=== PATIENT | male | born 1955 | race Caucasian/White ===

== ENCOUNTER 2016-04-23 22:00 | Inpatient (IN) | payer OTHER ==
[~2016-04-23] VITALS: Ht 189.2 cm; Wt 149.7 kg
[~2016-04-23 22:00] MED LIST: ALL300 PO; CYCL10TA6 PO; DIPH-437 PO; LCTX PO; LSX20 PO; METO50TA16 PO; OMEP20CA9 PO; PHEN10CA3 PO; SULF800T23 PO
[2016-04-23] MEDS ORDERED: MoRPHine SULFATE 4 MG/ML 1 ML CARP\\VIAL IV STA (22:16)
[2016-04-23 22:27] LABS: BASO % 0.5 %; BASO ABS # 0.05 K/uL (0-0.2); COMPLETE YES; EOS % 1.9 %; HEMATOCRIT 43.4 % (42-52); IG% 1.4 %; LYMPH % 17.9 %; LYMPH ABS # 1.79 K/uL (1.2-3.4); MEAN CELL VOLUME 94.3 fL (80-100); MEAN CORPUSCULAR HEMOGLOBIN 31.3 pg (25-34); MEAN CORPUSCULAR HGB CONC 33.2 g/dl (32-36); MEAN PLATELET VOLUME 10.6 fL (7.4-10.4); MONO % 7.8 %; NEUT % 70.5 %; PLATELET COUNT 205 K/uL (130-400)
[2016-04-23] MEDS ORDERED: ALLO300T2 PO (22:29)
[2016-04-23] MEDS ORDERED: NITROGLYCERIN OINT 2% 1GM PACKET EXT ONE (22:30)
[2016-04-23] MEDS ORDERED: NTRGSL/4 PO (22:32)
[2016-04-23] MEDS ORDERED: TEMA15CA4 PO (22:33)
[2016-04-23] MEDS ORDERED: DICL-201 PO (22:33)
--- NOTE | 2016-04-23 22:44 | DIAGNOSTIC IMAGING REPORT ---
CHEST ONE VIEW PORTABLE CLINICAL HISTORY: Chest pain dyspnea COMPARISON STUDY: 02/23/2016 FINDINGS: Platelike atelectasis right base. Lungs otherwise are clear. Diaphragms smooth. IMPRESSION: No acute process Electronically signed by: Alvaro Rodrigues M.D. 04/23/2016 10:42 PM
[2016-04-23 23:06] LABS: ALB/GLOB RATIO 1.1 (0.9-2); BUN/CREATININE RATIO 23.3 (10-20); CALCIUM 8.4 mg/dl (8.5-10.1); CREATININE 1.5 mg/dl (0.60-1.40)
[2016-04-23 23:11] LABS: POTASSIUM 3.5 mmol/L (3.5-5.1)
[2016-04-23 23:19] LABS: CKMB/CK RATIO 2.4 (0-3.0); MAGNESIUM 2.3 mg/dl (1.8-2.4)
[2016-04-24] VITALS (7 sets, daily range): BP systolic 117–151; BP diastolic 72–87; PULSE 69–94; TEMP 36.5–36.6; O2SAT 95–96; Ht 189.2 cm; Wt 149.7 kg
--- NOTE | 2016-04-24 01:12 | EMERGENCY ROOM VISIT NOTE ---
History First contact with patient: 22:07 Chief Complaint: CHEST PAIN Stated Complaint: CHEST PAIN Nursing Triage Summary: Patient reports a sudden onset of substernal left sided chest pain radiating to b/l arms, started at 2014. Patient reports associated SOB, diaphoresis and radiation to b/l arms. patient has a history of intermittent chest pain. He was evaluated this date by behavioral health counselor. Known to have RBBB. Negative vomiting. History of Present Illness The patient is a 61 year old male who presents to the Emergency Room with complaints of left-sided chest pain that began about 2 hours prior to arrival. The patient has a history of cardiac disease and has previously followed with cardiology. He is a poor historian regarding his past cardiology visits. He evidently had an echocardiogram done 4 months ago. The patient is in the process of reestablishing with the cardiology group in [place]. He had his first visit with that group today, and this is the first time he got results of that previous echocardiogram. Evidently the behavioral health counselor did not feel comfortable with the results, and he has had additional echo and stress echo test ordered. The patient states that after his cardiology appointment he felt well, but then began having his pain. He states there was associated shortness of breath and radiation to his arms laterally. The patient is without fever or chills. No abdominal pain. He took aspirin today, and 2 nitroglycerin at home which relieved the pain. He states the pain is heavy in nature. Review of Systems More than 10 systems were reviewed and otherwise negative with the exception of history of present illness. Past Medical/Surgical History Medical Problems: (1) GERD (gastroesophageal reflux disease) (2) HTN (hypertension) (3) Laceration of lower extremity (4) Osteoarthritis (5) Sleep apnea Surgical Problems: (1) Bariatric Surgery Status (2) History of cholecystectomy (3) History of hernia repair Family History No pertinent family history Social History Smoking Status: Never Smoker Alcohol Use: none Drug Use: none Marital Status: Housing Status: lives with family Occupation Status: disabled Current/Historical Medications Scheduled Allopurinol (Zyloprim), 300 MG PO DAILY Diclofenac (Voltaren), 75 MG PO BID Furosemide (Furosemide), 20 MG PO DAILY Metoprolol Tartrate (Lopressor) (Lopressor), 25 MG PO QAM Nitroglycerin (Nitrostat), 0.4 MG PO DIRECTED Omeprazole (Prilosec), 20 MG PO DAILY Phentermine Hcl (Adipex P), 1 CAP PO QAM Sulfa/Trimethoprim (Bactrim Ds 800MG/160MG), 1 TAB PO BID Temazepam (Restoril), 15 MG PO HS Scheduled PRN Acetaminophen/Diphenhydramine (Tylenol Pm), 2 TAB PO HS PRN for Sleep Cyclobenzaprine Hcl (Flexeril), 1 TAB PO TID PRN for leg cramps Allergies Coded Allergies: Cephalexin (Unverified Adverse Reaction, Mild, "JUST DOESNT WORK" PER PT, 02/27/16) Physical Exam Vital Signs Date Time Temp Pulse Resp B/P Pulse Ox O2 Delivery O2 Flow Rate FiO2 04/24/16 00:34 91 23 132/78 94 Room Air 04/23/16 23:08 78 19 124/86 94 Room Air 04/23/16 22:27 88 04/23/16 22:07 95 Room Air 04/23/16 22:07 36.7 88 18 132/82 95 Room Air 04/23/16 22:07 98 Room Air Physical Exam VITALS: Vitals are noted on the nurse's note and reviewed by myself. Vital signs stable. GENERAL: Well-developed, well-nourished, obese white male, who is in no acute distress and resting comfortably. Patient is cooperative with the examination. HEAD: Normocephalic atraumatic. HEART: Regular rate and rhythm without murmurs gallops or rubs. LUNGS: Clear to auscultation bilaterally without wheezes, rales or rhonchi. No retractions or accessory muscle use. ABDOMEN: Positive normal bowel sounds x 4. Soft, nontender, without masses or organomegaly. No guarding or rebound tenderness. MUSCULOSKELETAL: No muscle atrophy, erythema, or edema noted. Full range of motion without joint tenderness in all extremities. NEURO: Patient was alert and oriented to person place and time. CN II through XII grossly intact. Medical Decision & Procedures ER Provider Diagnostic Interpretation: CHEST ONE VIEW PORTABLE CLINICAL HISTORY: Chest pain dyspnea COMPARISON STUDY: 02/23/2016 FINDINGS: Platelike atelectasis right base. Lungs otherwise are clear. Diaphragms smooth. IMPRESSION: No acute process Laboratory Results 04/23/16 22:00 Red Blood Count 4.60, Mean Corpuscular Volume 94.3, Mean Corpuscular Hemoglobin 31.3, Mean Corpuscular Hemoglobin Concent 33.2, Mean Platelet Volume 10.6, Neutrophils (%) (Auto) 70.5, Lymphocytes (%) (Auto) 17.9, Monocytes (%) (Auto) 7.8, Eosinophils (%) (Auto) 1.9, Basophils (%) (Auto) 0.5, Neutrophils # (Auto) 7.05, Lymphocytes # (Auto) 1.79, Monocytes # (Auto) 0.78, Eosinophils # (Auto) 0.19, Basophils # (Auto) 0.05 04/23/16 22:00 Test 04/23/16 22:00 White Blood Count 10.00 K/uL (4.8-10.8) Red Blood Count 4.60 M/uL (4.7-6.1) Hemoglobin 14.4 g/dL (14.0-18.0) Hematocrit 43.4 % (42-52) Mean Corpuscular Volume 94.3 fL (80-100) Mean Corpuscular Hemoglobin 31.3 pg (25-34) Mean Corpuscular Hemoglobin Concent 33.2 g/dl (32-36) Platelet Count 205 K/uL (130-400) Mean Platelet Volume 10.6 fL (7.4-10.4) Neutrophils (%) (Auto) 70.5 % Lymphocytes (%) (Auto) 17.9 % Monocytes (%) (Auto) 7.8 % Eosinophils (%) (Auto) 1.9 % Basophils (%) (Auto) 0.5 % Neutrophils # (Auto) 7.05 K/uL (1.4-6.5) Lymphocytes # (Auto) 1.79 K/uL (1.2-3.4) Monocytes # (Auto) 0.78 K/uL (0.11-0.59) Eosinophils # (Auto) 0.19 K/uL (0-0.5) Basophils # (Auto) 0.05 K/uL (0-0.2) RDW Standard Deviation 52.9 fL (36.4-46.3) RDW Coefficient of Variation 15.4 % (11.5-14.5) Immature Granulocyte % (Auto) 1.4 % Immature Granulocyte # (Auto) 0.14 K/uL (0.00-0.02) Anion Gap 15.0 mmol/L (3-11) Est Creatinine Clear Calc Drug Dose 83.8 ml/min Estimated GFR () 58.2 Estimated GFR (Non- 50.2 BUN/Creatinine Ratio 23.3 (10-20) Calcium Level 8.4 mg/dl (8.5-10.1) Magnesium Level 2.3 mg/dl (1.8-2.4) Total Bilirubin 0.3 mg/dl (0.2-1) Aspartate Amino Transf (AST/SGOT) 17 U/L (15-37) Alanine Aminotransferase (ALT/SGPT) 35 U/L (12-78) Alkaline Phosphatase 106 U/L (45-117) Total Creatine Kinase 71 U/L (39-308) Creatine Kinase MB 1.7 ng/ml (0.5-3.6) Creatine Kinase MB Ratio 2.4 (0-3.0) Total Protein 6.5 gm/dl (6.4-8.2) Albumin 3.4 gm/dl (3.4-5.0) Globulin 3.1 gm/dl (2.5-4.0) Albumin/Globulin Ratio 1.1 (0.9-2) Lipase 107 U/L (73-393) Medications Administered Medications (Trade) Dose Ordered Sig/Darrius Route Start Time Stop Time Status Last Admin Dose Admin Nitroglycerin (Nitroglycerin 2% Oint) 1 inch NOW ONCE EXT 04/23/16 22:30 04/23/16 22:31 DC 04/23/16 22:36 1 INCH Morphine Sulfate (MoRPHine SULFATE INJ) 4 mg NOW STAT IV 04/23/16 22:16 04/23/16 22:18 DC 04/23/16 22:36 4 MG ED Course Physical exam and history were performed. Nursing notes and EMR were reviewed. Patient appears to have substernal chest pain that is relieved with nitroglycerin. The patient evidently has a cardiac history as he has seen cardiology in the past. He is not seeing cardiology locally, and I do not have those records available for review. The patient evidently saw a new behavioral health counselor today, and they have reordered an echo and stress echo according to the patient. IV access was established and labs were obtained. EKG was performed and was normal sinus rhythm with a right bundle-branch block. There is no evidence of ischemia or ectopy. IV access was established and labs were obtained. The patient was hydrated with normal saline. He was started with 1 inch Nitropaste and give IV Morphine. He has had aspirin prehospital. The patient work is as above and was reviewed. It is not significantly elevated white blood cell count, anemia, bandemia, or gross electrolyte imbalance. Troponin 1 is negative. The patient remained in normal sinus rhythm on the director cardiac. His x-rays as above. The patient had significant improvement of his symptoms under our care. My concern is that the patient was seen by cardiology and Giana Suárez earlier today , and they were unhappy with his echocardiogram from 4 months ago. He has chest pain that is relieved with nitroglycerin. I discussed the case with the on-call hospitalist, who agreed to evaluate the patient here in the department the care management. Please see their dictation for patient course, plan, and disposition. The chart was completed utilizing [employer] Voice Recognition Software. Grammatical errors, random word insertions, pronoun errors, and incomplete sentences are an occasional consequence of this system due to software limitations, ambient noise, and hardware issues. Any formal questions or concerns about the content, text, or information contained within the body of this dictation should be directly addressed to the provider for clarification. . Medical Decision Differential diagnosis includes, but is not limited to: Myocardial infarction, dysrhythmia, pericarditis, pneumothorax, aortic aneurysm/dissection, DVT/PE, anxiety, GERD, PUD, electrolyte imbalance, thyroid disorder, pneumonia, bronchitis, pancreatitis, and others Impression Primary Impression: Substernal chest pain Departure Information Referrals Pita Montes M.D. (PCP) Patient Instructions A Signature Page, My [facility]
[2016-04-24] MEDS ORDERED: ACETAMINOPHEN 325 MG TAB ONE (02:12)
[2016-04-24] MEDS ORDERED: NITROGLYCERIN 0.4 MG SL PER TAB CHARGE SL PRN (02:15)
[2016-04-24] MEDS ORDERED: CYCLOBENZAPRINE HCL 10 MG TAB PO PRN (02:15)
[2016-04-24] MEDS ORDERED: ACETAMINOPHEN 325 MG TAB PO PRN (02:15)
[2016-04-24] MEDS ORDERED: POLYETHYLENE (MIRALAX) 17 GM PACK PO PRN (02:15)
[2016-04-24] MEDS ORDERED: MAGNESIUM HYDROXIDE SUSP 30 ML UDC PO PRN (02:15)
[2016-04-24] MEDS ORDERED: MoRPHine SULFATE 2 MG/ML CARP IV PRN (02:15)
[2016-04-24] MEDS ORDERED: ONDANSETRON INJ 2 MG/ML 2 ML VIAL IV PRN (02:15)
[2016-04-24] MEDS ORDERED: ALUMINUM/MAGNESIUM/SIMETH (MAALOX MAX) 30 ML UDC PO PRN (02:15)
--- NOTE | 2016-04-24 02:56 | History and Physical ---
History & Physical Date & Time of Service: Apr 24, 2016 at 02:28 Chief Complaint: Acute Renal Failure,Substernal Chest Pain Primary Care Physician: Pita Montes M.D. History of Present Illness Source: patient 61 y/o M w/Hx recurrent RLE cellulitis and recent prolonged hospitalization, HTN, morbid obesity and recent workup for intermittent CP. He had an appt earlier in the day with a new insulation worker apprentice due to a stress test 01/05 which was either equivocal or (+). He is apparently scheduled for an additional stress. This evening he developed central CP which radiated to his arms and was accompanied by SOB and diaphoresis in addition to a rapid, pounding HR. He reports that he had called EMS and was tachycardic when they arrived although not on arrival to the ER. His CP lasted several minutes and responded to NTG. Initial labs revealed negative enzymes but were (+) for ARF. The pt has been on Bactrim for an extended period following D/C after cellulitis treatment although he states that he has decided to take the medication once daily as opposed to BID as prescribed. He is on Lasix and Allopurinol daily although these are not new medications and the dosages have not changed. He denies recent NSAID use. He has been eating and drinking normally. Past Medical/Surgical History Medical Problems: (1) GERD (gastroesophageal reflux disease) Status: Chronic (2) HTN (hypertension) Status: Chronic (3) Laceration of lower extremity Status: Resolved (4) Osteoarthritis Status: Chronic (5) Sleep apnea Status: Chronic Surgical Problems: (1) Bariatric Surgery Status Status: Resolved (2) History of cholecystectomy Status: Resolved (3) History of hernia repair Status: Resolved Family History No pertinent family history Father from heart disease/ND Mother due to CA - unspecified Social History Smoking Status: Never Smoker Drug Use: none Marital Status: Housing status: lives with significant other Occupational Status: disabled Allergies Coded Allergies: Cephalexin (Unverified Adverse Reaction, Mild, "JUST DOESNT WORK" PER PT, 02/27/16) Home Medications Scheduled Allopurinol (Zyloprim), 300 MG PO DAILY Diclofenac (Voltaren), 75 MG PO BID Furosemide (Furosemide), 20 MG PO DAILY Metoprolol Tartrate (Lopressor) (Lopressor), 25 MG PO QAM Nitroglycerin (Nitrostat), 0.4 MG PO DIRECTED Omeprazole (Prilosec), 20 MG PO DAILY Phentermine Hcl (Adipex P), 1 CAP PO QAM Sulfa/Trimethoprim (Bactrim Ds 800MG/160MG), 1 TAB PO BID Temazepam (Restoril), 15 MG PO HS Scheduled PRN Acetaminophen/Diphenhydramine (Tylenol Pm), 2 TAB PO HS PRN for Sleep Cyclobenzaprine Hcl (Flexeril), 1 TAB PO TID PRN for leg cramps Review of Systems Constitutional: No chills, No fever, No sweats Eyes: No worsening of vision ENT: No hearing loss, No nasal symptoms, No unusual epistaxis Respiratory: + shortness of breath (transient with CP), No cough, No sputum, No wheezing Cardiovascular: + chest pain, No PND, No orthopnea Abdomen: No nausea, No pain, No vomiting Musculoskeletal: + problem reported (Chronic LE pain and swelling - R>L), No joint pain Genitourinary - Male: No dysuria, No hematuria Neurologic: No memory loss Psychiatric: No depression symptoms Endocrine: No fatigue Hematologic / Lymphatic: No abnormal bleeding/bruising Integumentary: No rash Allergic / Immunologic: No environmental allergies Physical Exam Vital Signs Date Time Temp Pulse Resp B/P Pulse Ox O2 Delivery O2 Flow Rate FiO2 04/24/16 02:10 84 16 117/71 94 Room Air 04/24/16 02:06 77 04/24/16 00:34 91 23 132/78 94 Room Air 04/23/16 23:08 78 19 124/86 94 Room Air 04/23/16 22:27 88 04/23/16 22:07 95 Room Air 04/23/16 22:07 36.7 88 18 132/82 95 Room Air 04/23/16 22:07 98 Room Air General Appearance: WD/WN, no apparent distress Head: normocephalic, atraumatic Eyes: normal inspection ENT: normal ENT inspection, pharynx normal Neck: supple, no JVD Respiratory/Chest: chest non-tender, lungs clear, normal breath sounds, no respiratory distress, no accessory muscle use Cardiovascular: regular rate, rhythm, no gallop, no murmur Abdomen/GI: normal bowel sounds, non tender, soft Back: normal inspection Extremities/Musculoskelatal: + inflammation (RLE - chronic), + pedal edema Neurologic/Psych: digital strategy specialist II-XII nml as tested, no motor/sensory deficits, alert, normal mood/affect, normal reflexes, oriented x 3 Skin: + rash (RLE appears erythematous - not warm ) Diagnostics Laboratory Results Results Past 24 Hours Test 04/23/16 22:00 04/24/16 01:30 04/24/16 02:10 04/24/16 02:25 Range/Units White Blood Count 10.00 4.8-10.8 K/uL Red Blood Count 4.60 4.7-6.1 M/uL Hemoglobin 14.4 14.0-18.0 g/dL Hematocrit 43.4 42-52 % Mean Corpuscular Volume 94.3 80-100 fL Mean Corpuscular Hemoglobin 31.3 25-34 pg Mean Corpuscular Hemoglobin Concent 33.2 32-36 g/dl Platelet Count 205 130-400 K/uL Mean Platelet Volume 10.6 7.4-10.4 fL Neutrophils (%) (Auto) 70.5 % Lymphocytes (%) (Auto) 17.9 % Monocytes (%) (Auto) 7.8 % Eosinophils (%) (Auto) 1.9 % Basophils (%) (Auto) 0.5 % Neutrophils # (Auto) 7.05 1.4-6.5 K/uL Lymphocytes # (Auto) 1.79 1.2-3.4 K/uL Monocytes # (Auto) 0.78 0.11-0.59 K/uL Eosinophils # (Auto) 0.19 0-0.5 K/uL Basophils # (Auto) 0.05 0-0.2 K/uL RDW Standard Deviation 52.9 36.4-46.3 fL RDW Coefficient of Variation 15.4 11.5-14.5 % Immature Granulocyte % (Auto) 1.4 % Immature Granulocyte # (Auto) 0.14 0.00-0.02 K/uL Sodium Level 147 136-145 mmol/L Potassium Level 3.5 3.5-5.1 mmol/L Chloride Level 112 98-107 mmol/L Carbon Dioxide Level 20 21-32 mmol/L Anion Gap 15.0 3-11 mmol/L Blood Urea Nitrogen 35 7-18 mg/dl Creatinine 1.50 0.60-1.40 mg/dl Est Creatinine Clear Calc Drug Dose 83.8 ml/min Estimated GFR () 58.2 Estimated GFR (Non- 50.2 BUN/Creatinine Ratio 23.3 10-20 Random Glucose 86 70-99 mg/dl Calcium Level 8.4 8.5-10.1 mg/dl Magnesium Level 2.3 1.8-2.4 mg/dl Total Bilirubin 0.3 0.2-1 mg/dl Aspartate Amino Transf (AST/SGOT) 17 15-37 U/L Alanine Aminotransferase (ALT/SGPT) 35 12-78 U/L Alkaline Phosphatase 106 45-117 U/L Total Creatine Kinase 71 39-308 U/L Creatine Kinase MB 1.7 0.5-3.6 ng/ml Creatine Kinase MB Ratio 2.4 0-3.0 Total Protein 6.5 6.4-8.2 gm/dl Albumin 3.4 3.4-5.0 gm/dl Globulin 3.1 2.5-4.0 gm/dl Albumin/Globulin Ratio 1.1 0.9-2 Lipase 107 73-393 U/L Bedside Troponin I 0.010 0-0.045 ng/ml EKG Sinus , RBBB Impression Assessment and Plan 61 y/o M w/Hx chronic RLE cellulitis and recent prolonged hospitalization. Had visited a insulation worker apprentice earlier in day possibly due to intermittent CP and an abnormal stress 01/05 - presents with CP and labs are notable for ARF. 1) CP - We are not currently able to contact his insulation worker apprentice who resides in [facility] and should likely be contacted AM to clarify his history and stress results. He will be monitored on telemetry with serial troponins and provided with NTG or morphine PRN for pain. We will provide ASA, and administer low dose heparin. It is noted that his home med list includes NTG as needed but not a statin, ASA or B noa so again, clarification of his history and previous workup would be essential. He is at risk of DVT/PE. Currently his pretest probability is low so that we will order a D dimer and proceed to a LE US if positive. 2) ARF - Med list includes Lasix, Diclofenac, Allopurinol and Bactrim. He denies recent Diclofenac use. We will hold all of these and provide aggressive IV fluids overnight in addition to checking a urine NA and Creat for a fractional excretion calculation. If there is no improvement we may need a nephrology consult. 3) Cellulitis - chronic RLE - pt is on Bactrim apparently as prophylaxis but has not complied with a full dose. We have held bactrim due to his ARF however his cellulitis does not appear completely healed so that if we need to D/C Bacr= trim going forward and ID consult should be obtained for evaluation and potential substitution. 4) HTN - normotensive at present - Lasix held due to ARF - monitor on telemetry Full code - Heparin prophylaxis Total time for this admit including record review, MEd rec, discussion with ER attending and Pt, review of EKG 37 min Level of Care Telemetry Resuscitation Status FULL RESUSCITATION VTE Prophylaxis VTE Risk Assessment Done? Y/N: Yes Risk Level: Moderate Given or contraindicated: Unfractionated heparin SQ
--- NOTE | 2016-04-24 07:50 | DIAGNOSTIC IMAGING REPORT ---
BILATERAL LOWER EXTREMITY VENOUS DOPPLER CLINICAL HISTORY: Deep venous thrombus. Elevated d-dimer. COMPARISON STUDY: Right lower extremity venous Doppler February 25, 2016. TECHNIQUE: Sonography of the deep venous system of the bilateral lower extremities was performed. Compression and augmentation were evaluated. FINDINGS: The bilateral common femoral, superficial femoral and popliteal veins were compressible. Augmentation was normal. Flow was shown within the deep calf vessels. Note was made of thrombus within a superficial vein of the medial and posterior aspect of the right calf. IMPRESSION: 1. No evidence of deep venous thrombus within the bilateral lower extremities. 2. Superficial thrombus within the medial and posterior right calf, as described above. Electronically signed by: Dakota Brito M.D. 04/24/2016 7:48 AM
[2016-04-24] MEDS: D5NSS + 20MEQ KCL 1,000 ML IV SCH ×2 (08:09→14:58)
[2016-04-24] MEDS: HEPARIN SOD 5000 UNIT/0.5 ML CARP SQ SCH ×2 (08:12→16:22)
--- NOTE | 2016-04-24 08:14 | Family Medicine Progress Note ---
Progress Note Date of Service Apr 24, 2016. Subjective Pt evaluation today including: conversation w/ patient, physical exam, chart review, lab review The patient was seen and examined at bedside. No acute overnight events. Patient is resting comfortably in bed. Denies having any pain. Eating and urinating well. Patient denies chest pain. Crushing chest pain from yesterday had resolved. Pt reported that he saw a lining presser in [place], Lelo Pagan (sp?) [phone] yesterday and she had planned to do a cardiac work up. Pt does not want to see a new lining presser if he can help it. Pt reports that his RLE is not bothering him. Plan of care was described to the patient and all questions were answered. Constitutional: No chills, No fever, No sweats Respiratory: No cough, No shortness of breath, No sputum, No wheezing Abdomen: No diarrhea, No nausea, No pain, No vomiting Objective Physical Exam General Appearance: WD/WN, no apparent distress, + obese Neck: no JVD Respiratory/Chest: chest non-tender, lungs clear, normal breath sounds Cardiovascular: regular rate, rhythm, no edema, no gallop, no JVD, no murmur Abdomen: normal bowel sounds, soft, no pulsatile mass, + distended Extremities: normal range of motion, no calf tenderness, + pedal edema (trace pedal edema bilaterally.), + pertinent finding (bilateral skin discoloration, equal temps bilaterally of the LE, no visible erythema.) Neurologic/Psychiatric: no motor/sensory deficits, alert, normal mood/affect, oriented x 3 Assessment and Plan 61M w/Hx chronic RLE cellulitis presented with a chief complaint one day history of midsternal pressure-like chest pain at rest. Pt had just seen his lining presser (INVESTIGATION CLERK Lelo Agustin sp?) in [place] the previous day. Labs are also notable for ARF. Pt was admitted for ARF and chest pain rule out. Troponins were negative x 2, EKG showed RBBB which is unchanged from EKG obtained at cardiologists office the previous day. Chart search from PCP, Dr. Montes at [facility] revealed an echo from Dec 2015 (results below), normal nuclear stress test from 2014, and EKG from Apr 23, 2016 showed RBBB. Chest Pain of unknown origin - Chest pain symptoms have resolved. Telemetry showed sinus rhythm. - Per pt's cardiology team in [place] (spoke with INVESTIGATION CLERK Lelo Agustin), an outpatient ALLY and echocardiogram is scheduled. - Echo from Dec 2015 showed - LVEF of 70%, hyperdynamic, mildly dilated right ventricular cavity, hyperdynamic RV systolic function, the aortic root is mildly enlarged and no significant valvular abnormalities - Nuclear stress test in 2014 showed normal perfusion imaging. - EKG from previous day lining presser visit (Apr 23, 2016) showed RBBB. - Trops neg x 2. Elevated D-Dimer, V/Q scan was negative. - c/w ASA 81mg, metoprolol 25mg daily, pantoprazole 40mg daily, Superficial Thrombus in R Calf found in US (superficial thrombus in the greater and lesser saphenous veins of the right medial and posterior mid calf.) - Pt denies any pain in the RLE, non tender LE to palpation bilaterally. - No anticoagulation for now. Acute Renal Failure - Creatinine improving 1.3<--1.5 - At patient's request IV was stopped, pt was encouraged to increase his PO water intake. - Hold Lasix, Diclofenac, Allopurinol and Bactrim. - Repeat BMP for tomorrow. Cellulitis - Pt denies any complains in the RLE, appears grossly normal with vascular discoloration. - OK to keep holding Bactrim. Likely resume Bactrim on discharge. HTN - Lasix held due to ARF - continue to monitor VS Dispo DVT Proph: HepSQ Full Code Resident Physician Supervision Note: I was present with the resident physician during the history and exam. I discussed the case with the resident and agree with the findings and plan as documented in the note. Any exceptions or clarifications are listed here: 61 y/o male admitted overnight after a now-resolved episode of chest pain. The patient had seen a lining presser the same day as an out-patient (at a different hospital). I reviewed the findings of tests performed here with the patient,; EKG is unchanged and cardiac enzymes are negative. I offered the patient consultation with an in-house lining presser, although he would prefer to follow up with the lining presser in [place] whom he saw yesterday. We were able to reach out to both the patient's PCP and cardiology office to obtain most recent echocardiogram. Given patient's negative enzymes and unchanged EKG - combined with his confirmed follow up with cardiology, discharge and continued out patient work up is a reasonable approach. Signs and symptoms of ACS were reviewed with the patient, with instructions to return to the ED (or call 911) if symptoms arise. Documented By: Kwan Villanueva Resident Involvement: Resident Care Provided Care Provided: Adult [facility]
[2016-04-24] MEDS ORDERED: ASPIRIN 81 MG ECTAB PO SCH (09:00)
[2016-04-24] MEDS ORDERED: METOPROLOL TARTRATE 25 MG TAB PO SCH (09:00)
[2016-04-24] MEDS ORDERED: PANTOprazole SOD 40 MG TAB PO SCH (09:00)
[2016-04-24 09:05] LABS: CALCIUM 8.2 mg/dl (8.5-10.1); CREATININE 1.3 mg/dl (0.60-1.40); POTASSIUM 4.1 mmol/L (3.5-5.1)
--- NOTE | 2016-04-24 12:55 | DIAGNOSTIC IMAGING REPORT ---
NUCLEAR MEDICINE PULMONARY VENTILATION/PERFUSION SCAN CLINICAL HISTORY: Shortness of breath. Possible pulmonary embolism. COMPARISON STUDY: Chest x-ray dated 04/23/2016 FINDINGS: The patient was ventilated utilizing 33 mCi of technetium 99m DTPA aerosol. The patient was perfused utilizing 5.6 mCi of technetium 99m MAA. There is slight heterogeneity in the perfusion pattern. There are no moderate or large VQ mismatches. This examination is of low probability for pulmonary embolism. IMPRESSION: Low probability of pulmonary embolism Electronically signed by: Ray Olmedo M.D. 04/24/2016 12:53 PM
--- NOTE | 2016-04-24 17:51 | Discharge Instructions ---
Discharge Instructions Admission Reason for Admission: Acute Renal Failure,Substernal Chest Pain Discharge Discharge Diagnosis / Problem: Acute renal failure and chest pain of unknown origin Discharge Goals Goal(s): Decrease discomfort, Improve function, Increase independence Activity Recommendations Activity Limitations: resume your previous activity . Instructions / Follow-Up Instructions / Follow-Up Follow up with your senior medical technologist within the next week to make sure you have your ALLY scan and echocardiogram scheduled. Follow up with your Primary Care Provider as needed. Return to the ER if you experience crushing chest pain. Current Hospital Diet Patient's current hospital diet: AHA Diet (Heart Healthy) Discharge Diet Recommended Diet: Regular Diet Pending Studies Studies pending at discharge: no Medical Emergencies . Who to Call and When: Medical Emergencies: If at any time you feel your situation is an emergency, please call 911 immediately. . Non-Emergent Contact Non-Emergency issues call your: Primary Care Provider, Product Inspection Coordinator . . "Provider Documentation" section prepared by Alvaro Peguero. VTE Core Measure Inpt VTE Proph given/why not?: Unfractionated heparin SQ Resident Involvement: Resident Care Provided Care Provided: Adult Hospital Medicine
--- NOTE | 2016-04-24 17:53 | Discharge Summary ---
Discharge Summary Admission Date: Apr 24, 2016 at 02:09 Discharge Date: Apr 24, 2016 Discharge Disposition: Home Principal Diagnosis: Acute Renal failure and chest pain of unknown origin. Problems/Secondary Diagnoses: (1) GERD (gastroesophageal reflux disease) Status: Chronic (2) HTN (hypertension) Status: Chronic (3) Osteoarthritis Status: Chronic (4) Sleep apnea Status: Chronic (Alvaro Peguero M.D.) Medication Reconciliation Continued Medications: Acetaminophen/Diphenhydramine (Tylenol Pm) 500 Mg/25 Mg Tab 2 TAB PO HS PRN for Sleep, TAB Allopurinol (Zyloprim) 300 Mg Tab 300 MG PO DAILY, TAB Cyclobenzaprine Hcl (Flexeril) 10 Mg Tab 1 TAB PO TID PRN for leg cramps for 30 Days, #90 TAB Diclofenac (Voltaren) 75 Mg Tabcr 75 MG PO BID, TAB WITH FOOD Furosemide (Furosemide) 20 Mg Tab 20 MG PO DAILY, #90 Metoprolol Tartrate (Lopressor) (Lopressor) 50 Mg Tab 25 MG PO QAM, #180 Nitroglycerin (Nitrostat) 0.4 Mg Tab 0.4 MG PO DIRECTED, #25 Omeprazole (Prilosec) 20 Mg Cap 20 MG PO DAILY, #90 Phentermine Hcl (Adipex P) 37.5 Mg Cap 1 CAP PO QAM for 30 Days, #30 CAP 2 Refills Sulfa/Trimethoprim (Bactrim Ds 800MG/160MG) Tab 1 TAB PO BID, #20 TAB Temazepam (Restoril) 15 Mg Cap 15 MG PO HS, CAP Discharge Exam Pt evaluation today including: conversation w/ patient, physical exam, chart review, lab review The patient was seen and examined at bedside. No acute overnight events. Patient is resting comfortably in bed. Denies having any pain. Eating and urinating well. Patient denies chest pain. Crushing chest pain from yesterday had resolved. Pt reported that he saw a guest experience captain in [place] (sp[place] [phone] yesterday and she had planned to do a cardiac work up. Pt does not want to see a new guest experience captain if he can help it. Pt reports that his RLE is not bothering him. Plan of care was described to the patient and all questions were answered. Constitutional: No chills, No fever, No sweats Respiratory: No cough, No shortness of breath, No sputum, No wheezing Abdomen: No diarrhea, No nausea, No pain, No vomiting Physical Exam General Appearance: WD/WN, no apparent distress, + obese Neck: no JVD Respiratory/Chest: chest non-tender, lungs clear, normal breath sounds Cardiovascular: regular rate, rhythm, no edema, no gallop, no JVD, no murmur Abdomen: normal bowel sounds, soft, no pulsatile mass, + distended Extremities: normal range of motion, no calf tenderness, + pedal edema (trace pedal edema bilaterally.), + pertinent finding (bilateral skin discoloration, equal temps bilaterally of the LE, no visible erythema.) Neurologic/Psychiatric: no motor/sensory deficits, alert, normal mood/affect, oriented x 3 (Alvaro Peguero M.D.) Hospital Course 61M w/Hx chronic RLE cellulitis presented with a chief complaint of a one day history of midsternal pressure-like chest pain at rest. Pt had just seen his guest experience captain (ELIJAH shook?) in [place] the previous day. Labs are also notable for ARF. Pt was admitted for ARF and chest pain rule out. Troponins were negative x 2, EKG showed RBBB which is unchanged from EKG obtained at cardiologists office the previous day. Chart search from PCP, Dr. Montes at [facility] revealed an echo from Dec 2015 (results below), normal nuclear stress test from 2014, and EKG from Apr 23, 2016 showed RBBB. After speaking with the pt's cardiology team, the patient was a workup of a ALLY and an echocardiogram schedule. Pt was advised to follow up with his guest experience captain to make sure those appointments get scheduled. Pt was given specific return to the ER instructions (severe chest pain or dyspnea on exertion) and discharged in good condition. Total Time Spent: Greater than 30 minutes This includes examination of the patient, discharge planning, medication reconciliation, and communication with other providers. (Alvaro Peguero M.D.) Resident Physician Supervision Note: I was present with the resident physician during the history and exam. I discussed the case with the resident and agree with the findings and plan as documented in the note. Any exceptions or clarifications are listed here: Please see additional documentation in the daily progress note. 61 y/o male admitted overnight after a now-resolved episode of chest pain. The patient had seen a guest experience captain the same day as an out-patient (at a different hospital). I reviewed the findings of tests performed here with the patient,; EKG is unchanged and cardiac enzymes are negative. I offered the patient consultation with an in-house guest experience captain, although he would prefer to follow up with the guest experience captain in [place] whom he saw yesterday. We were able to reach out to both the patient's PCP and cardiology office to obtain most recent echocardiogram. Given patient's negative enzymes and unchanged EKG - combined with his confirmed follow up with cardiology, discharge and continued out patient work up is a reasonable approach. Signs and symptoms of ACS were reviewed with the patient, with instructions to return to the ED (or call 911) if symptoms arise. (Kwan Villanueva,D.O.) Discharge Instructions Please refer to the electronic Patient Visit Report (Discharge Instructions) for additional information. (Alvaro Peguero M.D.) Follow-Up Follow up with the cardiology office within one week. Follow up with PCP as needed. (Alvaro Peguero M.D.) Additional Copies To Pita Montes M.D. Resident Involvement: Resident Care Provided Care Provided: Adult [facility] Medicine (Alvaro Peguero M.D.)
[2016-04-24] MEDS ORDERED: TEMAZEPAM 15 MG CAP PO SCH (21:00)
== END 2016-04-24 18:30 | disposition home or self-care (01) | DRG 683 ==
LOC: ENRESERVTM → ENRESERVDT → EDBD 22:00 → C.EDB 22:01 → C.EDINP 04-24 02:09 → C.MED 04-24 07:07
PROVIDERS: ADMIT Internal Medicine; ATTEND Family Medicine
DX: N17.9 Acute kidney failure, unspecified (principal); L03.115 Cellulitis of right lower limb; Z68.41 Body mass index [BMI] 40.0-44.9, adult; I82.811 Embolism and thrombosis of superficial veins of right lower extremity; R07.9 Chest pain, unspecified; I10 Essential (primary) hypertension; K21.9 Gastro-esophageal reflux disease without esophagitis; M19.90 Unspecified osteoarthritis, unspecified site; G47.30 Sleep apnea, unspecified; I45.10 Unspecified right bundle-branch block; E66.01 Morbid (severe) obesity due to excess calories; Z91.14 Patient's other noncompliance with medication regimen; Z98.84 Bariatric surgery status; Z79.2 Long term (current) use of antibiotics; Z79.899 Other long term (current) drug therapy

== ENCOUNTER 2017-05-14 22:54 | Emergency (ER) | payer OTHER ==
[~2017-05-14] VITALS: Ht 189.2 cm; Wt 141.1 kg
[~2017-05-14 22:54] MED LIST changes: -ALL300 PO; +ALLO300T2 PO; +DICL-201 PO; -LCTX PO; +NTRGSL/4 PO; -SULF800T23 PO; +TEMA15CA4 PO
[2017-05-14 22:59] VITALS: TEMP 36.6; Ht 189.2 cm; Wt 141.1 kg
[2017-05-14] MEDS ORDERED: CYCLOBENZAPRINE HCL 5 MG TAB PO STA (23:19)
[2017-05-14] MEDS ORDERED: LIDODERM (LIDOCAINE) PATCH 5% TD STA (23:19)
[2017-05-14] MEDS ORDERED: ACETAMINOPHEN 500 MG TAB PO STA (23:19)
[2017-05-15] MEDS ORDERED: KETOROLAC TROMETHAMINE 30 MG/ML VIAL IM STA (01:40)
[2017-05-15] MEDS ORDERED: GABAPENTIN 100 MG CAP PO STA (01:40)
--- NOTE | 2017-05-15 02:18 | EMERGENCY ROOM VISIT NOTE ---
History Report prepared by Eleonora: Nena Danielle Under the Supervision of: Dr. Carrie Edgar D.O. First contact with patient: 23:08 Chief Complaint: NECK PAIN Stated Complaint: LT SHOULDER AND NECK PAIN, NUMBNESS History of Present Illness The patient is a 62 year old male who presents to the Emergency Room with complaints of worsening neck pain starting a few weeks ago. 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 He states that he thought it was getting better, but its has recently been getting worse. The patient states that it recently has started to creep into his neck and cause numbness into his arm. He states that it feels like "when you open a soda can and it fizzes." The patient states that the pain is worse with movement. The patient states that he went to his PCP who said to go to the chiropractor. He reports that the chiropractor did not help. He notes that he takes PM to help with his joints. The patient complains of dizziness and headaches. He notes that the headaches are worse when the shoulder pain is worse. The patient denies leg swelling, fever, chills, and lightheadedness. Source of History: patient Onset: a few weeks ago Position: neck Quality: numbness, other (like "when you open a soda and it fizzes") Timing: worsening Modifying Factors (Worsening): movement Modifying Factors (Relieving): other (PM) Associated Symptoms: + headache, No fevers, No chills Note: The patient complains of dizziness. The patient denies leg swelling and lightheadedness. Review of Systems See HPI for pertinent positives & negatives. A total of 10 systems reviewed and were otherwise negative. Past Medical & Surgical Medical Problems: (1) Acute renal failure (2) Arthritis (3) GERD (gastroesophageal reflux disease) (4) HTN (hypertension) (5) HTN (hypertension) (6) Laceration of lower extremity (7) Osteoarthritis (8) Sleep apnea Surgical Problems: (1) Bariatric Surgery Status (2) History of cholecystectomy (3) History of hernia repair (4) S/P gastric bypass Family History No pertinent family history Social History Smoking Status: Former Smoker Alcohol Use: none Drug Use: none Marital Status: Housing Status: lives with family Occupation Status: disabled Current/Historical Medications Scheduled Allopurinol (Zyloprim), 300 MG PO DAILY Diclofenac (Voltaren), 75 MG PO BID Furosemide (Furosemide), 20 MG PO DAILY Gabapentin (Neurontin), 100 MG PO Q8 Lidocaine (Lidocaine), 1 PATCH TD DAILY Metoprolol Tartrate (Lopressor) (Lopressor), 25 MG PO QAM Nitroglycerin (Nitrostat), 0.4 MG PO DIRECTED Omeprazole (Prilosec), 20 MG PO DAILY Phentermine Hcl (Adipex P), 1 CAP PO QAM Temazepam (Restoril), 15 MG PO HS Scheduled PRN Acetaminophen/Diphenhydramine (Tylenol Pm), 2 TAB PO HS PRN for Sleep Cyclobenzaprine Hcl (Flexeril), 1 TAB PO TID PRN for leg cramps Cyclobenzaprine Hcl (Flexeril), 10 MG PO TID PRN for Muscle Spasms Oxycodone/Acetaminophen 5MG/325MG (Percocet 5MG/325MG), 1-2 TABS PO Q4H PRN for Pain Allergies Coded Allergies: Cephalexin (Unverified Adverse Reaction, Mild, "JUST DOESNT WORK" PER PT, 02/27/16) Physical Exam Vital Signs Date Time Temp Pulse Resp B/P (MAP) Pulse Ox O2 Delivery O2 Flow Rate FiO2 05/15/17 02:31 76 16 130/90 97 05/15/17 02:07 79 16 170/107 96 05/15/17 00:31 77 18 139/88 94 Room Air 05/14/17 22:59 36.6 86 19 156/96 94 Room Air Physical Exam GENERAL: alert, well appearing, well nourished, no distress, non-toxic, obese. EYE EXAM: normal conjunctiva, PERRL and EOM's grossly intact OROPHARYNX: no exudate, no erythema, lips, buccal mucosa, and tongue normal and mucous membranes are moist NECK: supple, no nuchal rigidity, no adenopathy, non-tender LUNGS: Clear to auscultation. Normal chest wall mechanics HEART: no murmurs, S1 normal and S2 normal ABDOMEN: abdomen soft, non-tender, normo-active bowel sounds, no masses, no rebound or guarding. BACK: Back is symmetrical on inspection and there is no deformity, no midline tenderness, no CVA tenderness. SKIN: no rashes and no bruising UPPER EXTREMITIES: Pain with palpation of the left AC, left acromion, left trapezius, and left lateral neck. Worse with rotation of head to the left. Sensory is intact. Pulses intact. Normal capillary refill. Slightly diminished ROM and strength in left upper extremity secondary to pain. LOWER EXTREMITIES: No pitting edema. NEURO EXAM: Normal sensorium, cranial nerves II-XII grossly intact, normal speech, no gross weakness of arms, no gross weakness of legs. Medical Decision & Procedures ER Provider Diagnostic Interpretation: Radiology results have been interpreted by the radiologist and reviewed by me. Shoulder X-Ray: The results were interpreted by me. No fracture or dislocation appreciated. Chest X-Ray: The results were interpreted by me. No cardiomegaly. No effusion. No wide mediastinum. No focal infiltrate. Improved compared to prior. MRI C-Spine: Multilevel degenerative changes: C2-C3, small posterior disc/osteophyte complex causes minimal canal narrowing and uncovertebral osteophytes cause mild left foraminal narrowing. C3-C4, posterior disc/osteophyte complex, uncovertebral osteophytes, and facet arthropathy cause [id number] canal narrowing, moderate right foraminal narrowing, and moderate to severe left foraminal narrowing. Small amount of fluid at left C3-C4 facet joint, suggesting inflammatory arthropathy. C4-C5, minimal canal and foraminal narrowing. C5-C6, posterior disc/osteophyte complex and uncovertebral osteophytes cause mild canal, moderate to severe left foraminal narrowing and moderate right foraminal narrowing. C6-C7, posterior disc/ossify complex and uncovertebral osteophytes cause mild canal and moderate bilateral foraminal narrowing. No cord compression or abnormal cord signal. No evidence of acute fracture. No evidence of discitis/osteomyelitis. Radiologist: Timi Kinsey MD Study ready at 00:55 and initial results transmitted at 01:25. Medications Administered Medications (Trade) Dose Ordered Sig/Darrius Route Start Time Stop Time Status Last Admin Dose Admin Acetaminophen (Tylenol Tab) 1,000 mg NOW STAT PO 05/14/17 23:19 05/14/17 23:23 DC 05/14/17 23:48 1,000 MG Cyclobenzaprine HCl (Flexeril Tab) 10 mg NOW STAT PO 05/14/17 23:19 05/14/17 23:23 DC 05/14/17 23:47 10 MG Lidocaine (Lidoderm Patch 5%) 1 patch NOW STAT TD 05/14/17 23:19 05/14/17 23:23 DC 05/15/17 00:49 1 PATCH Gabapentin (Neurontin Cap) 100 mg NOW STAT PO 05/15/17 01:40 05/15/17 01:41 DC 05/15/17 02:07 100 MG Ketorolac Tromethamine (Toradol Inj) 30 mg NOW STAT IM 05/15/17 01:40 05/15/17 01:41 DC 05/15/17 01:50 30 MG ECG Indication: back/shoulder pain Rate (beats per minute): 81 Rhythm: sinus rhythm Findings: RBBB, other (moderate amount of artifact, no obvious ST elevation however poor quality tracing) ED Course 2312: The patient was evaluated in room B12B. A complete history and physical exam was performed. 2319: Ordered Lidocaine 1 patch TD, Flexeril Tab 10 mg PO, Tylenol Tab 1000 mg PO. 0135: I reevaluated the patient and he is doing fine. He still has some pain. 0140: Ordered Toradol Inj 30 mg IM, Gabapentin 100 mg PO. 0152: I interpreted the patient's EKG at this time. 0228: Upon reevaluation, the patient is feeling better. 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 I discussed the need for close follow up. I discussed the symptoms to watch and return for. I discussed the findings and the treatment plan with the patient. He verbalizes agreement and understanding. The patient was discharged home. 0245: Ordered Oxycodone/ Acetaminophen 1 homepack PO. Medical Decision The patient is a 62 year old male who presents to the Emergency Room with complaints of worsening neck pain starting a few weeks ago. Differential diagnoses include fracture, sprain/strain, cervical radiculopathy, brachial plexitis, dissection, arthritis, rotator cuff injury. Medication Reconcilliation Current Medication List: was personally reviewed by me Blood Pressure Screening Patient's blood pressure: Elevated blood pressure Blood pressure disposition: Elevated BP felt to be situational Impression Primary Impression: Cervical radiculopathy Additional Impression: Left shoulder pain Scribe Attestation The scribe's documentation has been prepared under my direction and personally reviewed by me in its entirety. I confirm that the note above accurately reflects all work, treatment, procedures, and medical decision making performed by me. Departure Information Dispostion Home / Self-Care Prescriptions Lidocaine (LIDOCAINE) 5 % Pad 1 PATCH TD DAILY for Pain, #1 BOX Prov: Carrie EdgarDony, DO 05/15/17 Oxycodone/Acetaminophen 5MG/325MG (PERCOCET 5MG/325MG) Tab 1-2 TABS PO Q4H Y for Pain, #14 TAB Prov: Carrie Edgar Johnathan, DO 05/15/17 Cyclobenzaprine Hcl (FLEXERIL) 10 Mg Tab 10 MG PO TID Y for Muscle Spasms, #20 TAB Prov: Herve Carrie S., DO 05/15/17 Gabapentin (Neurontin) 100 Mg Cap 100 MG PO Q8, #60 CAP Prov: Haleyheydi Carrie Johnathan, DO 05/15/17 Referrals Pita Montes M.D. (PCP) Forms HOME CARE DOCUMENTATION FORM, IMPORTANT VISIT INFORMATION, WORK / SCHOOL INSTRUCTIONS Patient Instructions My [facility] Additional Instructions Please follow up with the spine doctor regarding your neck as well as an orthopedic surgeon regarding your chronic left shoulder pain. You may use the medications as provided. Please be cautious when taking muscle relaxers or stronger pain medications as you should not drive or drink alcohol. These make sure you're drinking plenty of water. These avoid any heavy lifting or strenuous activity. If you have any worsening pain, increased numbness or tingling, weakness, fevers, chest pain, trouble breathing, dizziness, vision changes, facial numbness or droop, or you have any other new concerns please return the emergency room. You may also use ibuprofen/advil/alleve to help with the pain - do not take it on an empty stomach and do not take it for more than 10 days. Problem Qualifiers Additional Impression: Left shoulder pain Chronicity: chronic Qualified Codes: M25.512 - Pain in left shoulder; G89.29 - Other chronic pain
[2017-05-15 02:31] VITALS: BP 130/90; PULSE 76; O2SAT 97
[2017-05-15] MEDS ORDERED: CYCL10TA6 PO (02:38)
[2017-05-15] MEDS ORDERED: LIDO1PAD2 TD (02:38)
[2017-05-15] MEDS ORDERED: NRN/100 PO (02:38)
[2017-05-15] MEDS ORDERED: OXYC-57 PO (02:38)
[2017-05-15] MEDS ORDERED: PERCOCET HOME PACK PO ONE (02:45)
--- NOTE | 2017-05-15 07:18 | DIAGNOSTIC IMAGING REPORT ---
LEFT SHOULDER 3 VIEWS HISTORY: Left shoulder pain COMPARISON: None. FINDINGS: There is no fracture or dislocation. Soft tissues are unremarkable. Mild AC joint arthrosis. The left clavicle is intact. Narrowing of the subacromial space with [id number] articulation consistent with chronic rotator cuff injury. IMPRESSION: 1. No fracture or dislocation within the left shoulder. 2. Chronic rotator cuff injury. Electronically signed by: Agapito Hernadez M.D. 05/15/2017 7:16 AM Dictated Date/Time: 05/15/2017 7:15 AM
--- NOTE | 2017-05-15 07:21 | DIAGNOSTIC IMAGING REPORT ---
CHEST ONE VIEW PORTABLE HISTORY: left upper chest pain COMPARISON: Chest 04/23/2016. FINDINGS: The lungs are clear. Cardiac silhouette is normal in size. No pleural effusions. No pneumothorax. IMPRESSION: No acute process. Electronically signed by: Agapito Hernadez M.D. 05/15/2017 7:19 AM Dictated Date/Time: 05/15/2017 7:16 AM
--- NOTE | 2017-05-15 07:41 | DIAGNOSTIC IMAGING REPORT ---
CERVICAL WITHOUT CONTRAST HISTORY: Pain. Neuropathy. left neck/shoulder pain TECHNIQUE: Multiplanar multisequence MRI of the cervical spine was performed without the use of contrast. COMPARISON STUDY: None. FINDINGS: Signal characteristics of the vertebral bodies are unremarkable. Moderate degenerative disc change throughout the entire cervical region. Signal characteristics the cervical cord are unremarkable. C2-C3: Mild broad-based bulging disc. No significant impact with cervical cord. Moderate narrowing left neural foramina at osteophytic bases. C3-C4: Broad-based bulging disc in contact with the cervical cord. Moderate to rather significant narrowing left and to a lesser extent right neural foramina. C4-C5: Broad-based bulging disc showing no contact with the cervical cord. Moderate osteophytic narrowing of the right to lesser extent left neural foramina. C5-C6: Broad-based disc herniation with moderate impact anterior cervical cord. Moderate to significant narrowing of the neuroforamina bilaterally. C6-C7: Mild broad-based bulging disc. No impact of the cervical cord. Moderate narrowing of the neuroforamina bilaterally. C7-T1: Mild osteophytic narrowing of the neuroforamina bilaterally. IMPRESSION: 1. Broad-based bulging disc versus mild disc herniation at multiple levels as described. 2. Findings are most significant at C5-C6 with moderate impact upon the anterior cervical cord. 3. Moderate to rather significant multifactorial narrowing of the neuroforamina bilaterally at multiple levels as discussed. The above report was generated using voice recognition software. It may contain grammatical, syntax or spelling errors. Electronically signed by: Alvaro Rodrigues M.D. 05/15/2017 7:40 AM Dictated Date/Time: 05/15/2017 7:34 AM
--- NOTE | 2017-05-15 16:18 | Pharmacy Progress Note ---
ED Pharmacist Progress Note Date of Service: May 15, 2017. Received call from [facility] regarding patient's lidocaine 5% patch prescription prescribed by Dr. Edgar. Patient unable to afford cost of $100. Discuss[address] with Dr. Vasquez and reported to pharmacist if patient unable/does not want to pay for the prescription can try using an OTC lidocaine patch.
== END 2017-05-15 02:46 | disposition home or self-care (01) ==
LOC: C.EDB 22:56
DX: M54.12 Radiculopathy, cervical region (principal); M25.512 Pain in left shoulder; G89.29 Other chronic pain; N17.9 Acute kidney failure, unspecified; M19.90 Unspecified osteoarthritis, unspecified site; K21.9 Gastro-esophageal reflux disease without esophagitis; G47.30 Sleep apnea, unspecified; Z98.84 Bariatric surgery status; Z87.891 Personal history of nicotine dependence; Z79.899 Other long term (current) drug therapy

== ENCOUNTER 2017-08-06 21:33 | Emergency (ER) | payer OTHER ==
[~2017-08-06] VITALS: Ht 188 cm; Wt 153.0 kg
[~2017-08-06 21:33] MED LIST changes: +LIDO1PAD2 TD; +NRN/100 PO; +OXYC-57 PO
[2017-08-06 21:40] VITALS: TEMP 36.6
[2017-08-06 22:05] VITALS: O2SAT 98
[2017-08-06 22:06] VITALS: Ht 188 cm; Wt 153.0 kg
[2017-08-06 22:09] LABS: HEMATOCRIT 43.5 % (42-52); HEMOGLOBIN 14.5 g/dL (14.0-18.0); MEAN CELL VOLUME 99.1 fL (80-100); MEAN CORPUSCULAR HGB CONC 33.3 g/dl (32-36); MEAN PLATELET VOLUME 10.1 fL (7.4-10.4); PLATELET COUNT 220 K/uL (130-400); RED CELL DISTRIBUTION WIDTH CV 14.8 % (11.5-14.5); RED CELL DISTRIBUTION WIDTH SD 53.7 fL (36.4-46.3); WHITE BLOOD COUNT 10.21 K/uL (4.8-10.8)
[2017-08-06 22:20] LABS: INR 0.9 (0.9-1.1); PTT PATIENT 24.9 SECONDS (21.0-31.0)
--- NOTE | 2017-08-06 22:22 | DIAGNOSTIC IMAGING REPORT ---
CHEST ONE VIEW PORTABLE CLINICAL HISTORY: Respiratory distress COMPARISON STUDY: 05/15/2017 FINDINGS: There is a suboptimal inspiration. The heart is mildly enlarged. There is mild vascular prominence. There is no lobar consolidation. There are no significant pleural effusions.[ IMPRESSION: 1. Mild cardiomegaly and suspected mild pulmonary vascular congestion/fluid overload 2. Suboptimal inspiration with bronchovascular crowding at the lung bases 3. No evidence of lobar consolidation Electronically signed by: Ray Olmedo M.D. 08/06/2017 10:21 PM Dictated Date/Time: 08/06/2017 10:19 PM
[2017-08-06 22:29] LABS: ALBUMIN 3.4 gm/dl (3.4-5.0); ALT/SGPT 28 U/L (12-78); AST/SGOT 20 U/L (15-37); BLOOD UREA NITROGEN 36 mg/dl (7-18); CALCIUM 8.3 mg/dl (8.5-10.1); CARBON DIOXIDE 21 mmol/L (21-32); CREATININE 1.74 mg/dl (0.60-1.40); GLUCOSE 66 mg/dl (70-99); POTASSIUM 4.2 mmol/L (3.5-5.1); SODIUM 140 mmol/L (136-145)
[2017-08-06] MEDS ORDERED: OPTIRAY 320 IV PRN (22:30)
[2017-08-06 22:34] LABS: ALKALINE PHOSPHATASE 72 U/L (45-117); CKMB 1.1 ng/ml (0.5-3.6)
[2017-08-06 22:45] LABS: BASO % 0.6 %; BASO ABS # 0.06 K/uL (0-0.2); EOS % 2.6 %; EOS ABS # 0.27 K/uL (0-0.5); LYMPH % 24.1 %; LYMPH ABS # 2.46 K/uL (1.2-3.4); MONO % 7.1 %; MONO ABS # 0.73 K/uL (0.11-0.59); NEUT % 58.7 %; NEUT ABS # 5.99 K/uL (1.4-6.5)
--- NOTE | 2017-08-06 22:59 | DIAGNOSTIC IMAGING REPORT ---
CT ANGIOGRAM OF THE CHEST CLINICAL HISTORY: Respiratory distress. POSSIBLE PULMONARY EMBOLISM COMPARISON STUDY: Chest x-ray dated 08/06/2017 TECHNIQUE: Following the IV administration of 92 mL of Optiray-320, CT angiogram of the thorax was performed from the thoracic inlet to the lung bases utilizing the pulmonary embolus protocol. Images are reviewed in the axial, sagittal, and coronal planes. IV contrast was administered without complication. MIP imaging was performed. A dose lowering technique was utilized adhering to the principles of ALARA. CT DOSE: 650.15 mGy.cm FINDINGS: No pathologically enlarged axillary mediastinal or hilar lymph nodes were visualized. There was no evidence of thoracic aortic dilatation. Examination limited due to respiratory motion artifact. No pulmonary emboli identified No pleural effusions are visualized. There are right lower lobe atelectatic changes. IMPRESSION: 1. Study compromised due to respiratory motion artifact 2. No evidence of acute pulmonary embolism 3. Right lower lobe opacities, likely atelectatic Electronically signed by: aRy Olmedo M.D. 08/06/2017 10:57 PM Dictated Date/Time: 08/06/2017 10:54 PM
[2017-08-06 23:06] VITALS: BP 145/82; PULSE 79; O2SAT 98
[2017-08-06] MEDS ORDERED: LEVOFLOXACIN 250 MG TAB PO STA (23:12)
[2017-08-06] MEDS ORDERED: ALBUTEROL HFA 8 GM INHALER INH ONE (23:15)
[2017-08-06] MEDS ORDERED: LEVO-366 PO (23:18)
[2017-08-06] MEDS ORDERED: VNTHFA/IN INH (23:18)
--- NOTE | 2017-08-06 23:31 | EMERGENCY ROOM VISIT NOTE ---
History Report prepared by Eleonora: Livier Castillo Under the Supervision of: Dr. Jann Vasquez D.O. First contact with patient: 21:40 Chief Complaint: SHORTNESS OF BREATH Stated Complaint: SOB, WEAKNESS Nursing Triage Summary: tonight at 1800 patient was sitting in his chair and became SOB, weak, and diaphoretic . denies having any chest pain. states he called EMS. EMS reports at time of responding to patient his spo2 was 88% on RA. patient states he feels dizzy at this time. denies any other complaints. History of Present Illness The patient is a 62 year old male who presents to the Emergency Room with complaints of persistent SOB starting earlier today. The patient presents to the ED by EMS. He was just sitting at home when he started feeling SOB. He felt weak and diaphoretic. EMS reported that the patient was 88 on room air. He feels improved now. He states that he has experienced this before. He still has some SOB. He has dizziness with getting up. He denies any chest pain, fever, or chills. He normally has swelling in his legs. He denies any history of blood clots in the leg, heart failure, COPD, or emphysema. He has a history of hypertension, cholecystectomy, and gastric bypass. He is on Lasix. He denies any history of smoking, but does chew tobacco. Source of History: patient Onset: earlier today Position: chest Quality: other (SOB) Timing: other (persistent) Associated Symptoms: + diaphoresis, + weakness, No fevers, No chills, No chest pain Review of Systems See HPI for pertinent positives & negatives. A total of 10 systems reviewed and were otherwise negative. Past Medical & Surgical Medical Problems: (1) Acute renal failure (2) Arthritis (3) GERD (gastroesophageal reflux disease) (4) HTN (hypertension) (5) HTN (hypertension) (6) Laceration of lower extremity (7) Osteoarthritis (8) Sleep apnea Surgical Problems: (1) Bariatric Surgery Status (2) History of cholecystectomy (3) History of hernia repair (4) S/P gastric bypass Family History No pertinent family history Social History Smoking Status: Never Smoker Alcohol Use: none Drug Use: none Marital Status: Housing Status: lives with family Occupation Status: disabled Current/Historical Medications Scheduled Albuterol Hfa (Ventolin Hfa), 2 PUFF INH Q4 Allopurinol (Zyloprim), 300 MG PO DAILY Diclofenac (Voltaren), 75 MG PO BID Furosemide (Furosemide), 20 MG PO DAILY Gabapentin (Neurontin), 100 MG PO Q8 Levofloxacin (Levaquin), 500 MG PO DAILY Lidocaine (Lidocaine), 1 PATCH TD DAILY Metoprolol Tartrate (Lopressor) (Lopressor), 25 MG PO QAM Nitroglycerin (Nitrostat), 0.4 MG PO DIRECTED Omeprazole (Prilosec), 20 MG PO DAILY Phentermine Hcl (Adipex P), 1 CAP PO QAM Temazepam (Restoril), 15 MG PO HS Scheduled PRN Acetaminophen/Diphenhydramine (Tylenol Pm), 2 TAB PO HS PRN for Sleep Cyclobenzaprine Hcl (Flexeril), 1 TAB PO TID PRN for leg cramps Oxycodone/Acetaminophen 5MG/325MG (Percocet 5MG/325MG), 1-2 TABS PO Q4H PRN for Pain Allergies Coded Allergies: Cephalexin (Unverified Adverse Reaction, Mild, "JUST DOESNT WORK" PER PT, 02/27/16) Physical Exam Vital Signs Date Time Temp Pulse Resp B/P (MAP) Pulse Ox O2 Delivery O2 Flow Rate FiO2 08/06/17 23:06 79 22 145/82 98 Room Air 08/06/17 22:10 73 08/06/17 22:05 98 Room Air 08/06/17 22:05 98 Room Air 08/06/17 21:40 96 Room Air 08/06/17 21:40 36.6 70 22 161/91 98 Room Air Physical Exam GENERAL: Patient is awake, alert, and in no acute distress. Patient is resting comfortably and showing no signs of anxiety EYES: The conjunctivae are clear. The pupils are round and reactive. EARS, NOSE, MOUTH AND THROAT: The nose is without any evidence of any deformity. Mucous membranes are moist tongue is midline NECK: The neck is nontender and supple. RESPIRATORY: Normal respiratory effort is noted there is no evidence of wheezing rhonchi or rales CARDIOVASCULAR: Regular rate and rhythm noted there no murmurs rubs or gallops normal S1 normal S2 GASTROINTESTINAL: The abdomen is soft. Bowel sounds are present in all quadrants. Abdomen is nontender MUSCULOSKELETAL/EXTREMITIES: There is no evidence of gross deformity full range of motion is noted in the hips and shoulders SKIN: There is pedal edema bilaterally. No calf tenderness or signs of cellulitis. Mild stasis dermatitis was noted bilaterally. NEUROLOGIC: Patient is awake alert and oriented x3 Medical Decision & Procedures ER Provider Diagnostic Interpretation: X-ray results as stated below per interpretation by me and the radiologist. Radiology results as stated below per my review and radiologist interpretation: CHEST ONE VIEW PORTABLE CLINICAL HISTORY: Respiratory distress COMPARISON STUDY: 05/15/2017 FINDINGS: There is a suboptimal inspiration. The heart is mildly enlarged. There is mild vascular prominence. There is no lobar consolidation. There are no significant pleural effusions.[ IMPRESSION: 1. Mild cardiomegaly and suspected mild pulmonary vascular congestion/fluid overload 2. Suboptimal inspiration with bronchovascular crowding at the lung bases 3. No evidence of lobar consolidation Electronically signed by: Ray Olmedo M.D. 08/06/2017 10:21 PM Dictated Date/Time: 08/06/2017 10:[address] ANGIOGRAM OF THE CHEST CLINICAL HISTORY: Respiratory distress. POSSIBLE PULMONARY EMBOLISM COMPARISON STUDY: Chest x-ray dated 08/06/2017 TECHNIQUE: Following the IV administration of 92 mL of Optiray-320, CT angiogram of the thorax was performed from the thoracic inlet to the lung bases utilizing the pulmonary embolus protocol. Images are reviewed in the axial, sagittal, and coronal planes. IV contrast was administered without complication. MIP imaging was performed. A dose lowering technique was utilized adhering to the principles of ALARA. CT DOSE: 650.15 mGy.cm FINDINGS: No pathologically enlarged axillary mediastinal or hilar lymph nodes were visualized. There was no evidence of thoracic aortic dilatation. Examination limited due to respiratory motion artifact. No pulmonary emboli identified No pleural effusions are visualized. There are right lower lobe atelectatic changes. IMPRESSION: 1. Study compromised due to respiratory motion artifact 2. No evidence of acute pulmonary embolism 3. Right lower lobe opacities, likely atelectatic Electronically signed by: Ray Olmedo M.D. 08/06/2017 10:57 PM Dictated Date/Time: 08/06/2017 10:54 PM Laboratory Results 08/06/17 20:50 Red Blood Count 4.39, Mean Corpuscular Volume 99.1, Mean Corpuscular Hemoglobin 33.0, Mean Corpuscular Hemoglobin Concent 33.3, Mean Platelet Volume 10.1, Neutrophils (%) (Auto) 58.7, Lymphocytes (%) (Auto) 24.1, Monocytes (%) (Auto) 7.1, Eosinophils (%) (Auto) 2.6, Basophils (%) (Auto) 0.6, Neutrophils # (Auto) 5.99, Lymphocytes # (Auto) 2.46, Monocytes # (Auto) 0.73, Eosinophils # (Auto) 0.27, Basophils # (Auto) 0.06 08/06/17 20:50 Test 08/06/17 20:50 08/06/17 22:08 White Blood Count 10.21 K/uL (4.8-10.8) Red Blood Count 4.39 M/uL (4.7-6.1) Hemoglobin 14.5 g/dL (14.0-18.0) Hematocrit 43.5 % (42-52) Mean Corpuscular Volume 99.1 fL (80-100) Mean Corpuscular Hemoglobin 33.0 pg (25-34) Mean Corpuscular Hemoglobin Concent 33.3 g/dl (32-36) Platelet Count 220 K/uL (130-400) Mean Platelet Volume 10.1 fL (7.4-10.4) Neutrophils (%) (Auto) 58.7 % Lymphocytes (%) (Auto) 24.1 % Monocytes (%) (Auto) 7.1 % Eosinophils (%) (Auto) 2.6 % Basophils (%) (Auto) 0.6 % Neutrophils # (Auto) 5.99 K/uL (1.4-6.5) Lymphocytes # (Auto) 2.46 K/uL (1.2-3.4) Monocytes # (Auto) 0.73 K/uL (0.11-0.59) Eosinophils # (Auto) 0.27 K/uL (0-0.5) Basophils # (Auto) 0.06 K/uL (0-0.2) RDW Standard Deviation 53.7 fL (36.4-46.3) RDW Coefficient of Variation 14.8 % (11.5-14.5) Immature Granulocyte % (Auto) 6.9 % Immature Granulocyte # (Auto) 0.70 K/uL (0.00-0.02) Prothrombin Time 9.8 SECONDS (9.0-12.0) Prothromb Time International Ratio 0.9 (0.9-1.1) Activated Partial Thromboplast Time 24.9 SECONDS (21.0-31.0) Partial Thromboplastin Ratio 1.0 Anion Gap 8.0 mmol/L (3-11) Est Creatinine Clear Calc Drug Dose 70.6 ml/min Estimated GFR () 48.3 Estimated GFR (Non- 41.7 BUN/Creatinine Ratio 20.6 (10-20) Calcium Level 8.3 mg/dl (8.5-10.1) Total Bilirubin 0.3 mg/dl (0.2-1) Aspartate Amino Transf (AST/SGOT) 20 U/L (15-37) Alanine Aminotransferase (ALT/SGPT) 28 U/L (12-78) Alkaline Phosphatase 72 U/L (45-117) Total Creatine Kinase 112 U/L (39-308) Creatine Kinase MB 1.1 ng/ml (0.5-3.6) Creatine Kinase MB Ratio 1.0 (0-3.0) Troponin I < 0.015 ng/ml (0-0.045) Pro-B-Type Natriuretic Peptide 78 pg/ml (0-900) Total Protein 6.0 gm/dl (6.4-8.2) Albumin 3.4 gm/dl (3.4-5.0) Globulin 2.6 gm/dl (2.5-4.0) Albumin/Globulin Ratio 1.3 (0.9-2) Bedside D-Dimer > 450 ng/mlFEU (0-450) Laboratory results per my review. Medications Administered Medications (Trade) Dose Ordered Sig/Darrius Route Start Time Stop Time Status Last Admin Dose Admin Albuterol (Ventolin Hfa Inhaler) 2 puffs NOW ONCE INH 08/06/17 23:15 08/06/17 23:16 DC 08/06/17 23:20 2 PUFFS Levofloxacin (Levaquin Tab) 500 mg NOW STAT PO 08/06/17 23:12 08/06/17 23:14 DC 08/06/17 23:20 500 MG ECG Per My Interpretation Indication: SOB/dyspnea Rate (beats per minute): 69 Rhythm: normal sinus Findings: RBBB, no ectopy Comparison ECG Date: 14-May-2017 Change: no significant change ED Course 2143: The patient was evaluated in room C8. A complete history and physical examination were performed. 2312: Levofloxacin 500 mg PO. 2315: Albuterol 2 puffs INH. 2319: Upon reevaluation, the patient is resting comfortably. I discussed the results and treatment plan with him. He verbalized agreement of the treatment plan. He was discharged home. Medical Decision Prior records/ancillary studies reviewed. Triage Nursing notes reviewed. The patient's history was concerning for respiratory difficulties. Differential diagnosis: Etiologies such as infections, reactive airway disease, pneumonia, pneumothorax , COPD, CHF, cardiac ischemia, pulmonary embolism, musculoskeletal, gastrointestinal, as well as others were entertained. The patient is a 62-year-old male who presented to the emergency department with an acute onset of shortness of breath at rest. The patient had a reported hypoxia prior to arrival but no hypoxia was noted in the emergency department. I discussed patient's laboratory and radiographic studies with him. At this time his CAT scan shows some signs of atelectasis. It is possible this represents a bronchitis or even an early pneumonia. No signs of venous thromboembolic disease were noted. He was started on antibiotic and a bronchodilator. He was encouraged to follow-up with his family doctor this week for reevaluation but return to the emergency department immediately if symptoms change worsen or the need arises. Medication Reconcilliation Current Medication List: was personally reviewed by me Blood Pressure Screening Patient's blood pressure: Elevated blood pressure Impression Primary Impression: SOB (shortness of breath) Additional Impression: Bronchitis Scribe Attestation The scribe's documentation has been prepared under my direction and personally reviewed by me in its entirety. I confirm that the note above accurately reflects all work, treatment, procedures, and medical decision making performed by me. Departure Information Dispostion Home / Self-Care Prescriptions Albuterol Hfa (VENTOLIN HFA) 200 Puffs/64665 Mcg Aers 2 PUFF INH Q4, #1 INHALER Prov: Jann Vasquez, DO 08/06/17 Levofloxacin (Levaquin) 500 Mg Tab 500 MG PO DAILY, #5 TAB Prov: Jann Vasquez, DO 08/06/17 Referrals Pita Montes M.D. (PCP) Forms HOME CARE DOCUMENTATION FORM, IMPORTANT VISIT INFORMATION Patient Instructions Bronchitis Acute, ED Dyspnea Shortness of Breath, My [facility] Additional Instructions Rest and avoid any strenuous activity. Continue all medications as prescribed. Follow-up with your family doctor soon as possible. Return to the emergency department immediately if symptoms change worsen or the need arises. Problem Qualifiers
== END 2017-08-06 23:25 | disposition home or self-care (01) ==
LOC: EDBD 21:33 → C.EDC 21:34
DX: J40 Bronchitis, not specified as acute or chronic (principal); R60.0 Localized edema; I87.2 Venous insufficiency (chronic) (peripheral); R53.1 Weakness; R61 Generalized hyperhidrosis; I10 Essential (primary) hypertension; K21.9 Gastro-esophageal reflux disease without esophagitis; Z79.899 Other long term (current) drug therapy; Z88.1 Allergy status to other antibiotic agents

== ENCOUNTER 2017-11-08 05:56 | Day surgery (SDC) | payer OTHER ==
[2017-10-25 09:23] VITALS: BMI 43.0
--- NOTE | 2017-10-25 11:47 | PAT Medication Instructions ---
Service Date Oct 25, 2017. Current Home Medication List Allopurinol (Zyloprim), 300 MG PO QAM Cyclobenzaprine Hcl (Flexeril), 1 TAB PO TID PRN for leg cramps Diclofenac (Voltaren), 75 MG PO BID Furosemide (Furosemide), 20 MG PO QAM Gabapentin (Neurontin), 100 MG PO TID Metoprolol Succinate (Metoprolol Succinate ER), 25 MG PO QAM Omeprazole (Prilosec), 20 MG PO QAM Medication Instructions For Your Scheduled Surgery -Hold for 3 days prior to surgery per your family doctor's instructions: Diclofenac (Voltaren), 75 MG PO BID - Hold the following medications the morning of surgery: Cyclobenzaprine Hcl (Flexeril), 1 TAB PO TID PRN for leg cramps Furosemide (Furosemide), 20 MG PO QAM - Take the following medications the morning of surgery with a sip of water: Allopurinol (Zyloprim), 300 MG PO QAM Gabapentin (Neurontin), 100 MG PO TID Metoprolol Succinate (Metoprolol Succinate ER), 25 MG PO QAM Omeprazole (Prilosec), 20 MG PO QAM - Take the following medications as scheduled the night before surgery: Cyclobenzaprine Hcl (Flexeril), 1 TAB PO TID PRN for leg cramps (if needed) Gabapentin (Neurontin), 100 MG PO TID If you have any questions please call us at [phone] or [phone] or [phone]
--- NOTE | 2017-10-25 12:29 | DIAGNOSTIC IMAGING REPORT ---
CHEST 2 VIEWS ROUTINE CLINICAL HISTORY: Preoperative evaluation. COMPARISON STUDY: Chest radiograph and chest CT August 06, 2017. FINDINGS: Lung volumes are normal. No pneumothorax or pleural effusion is present. Cardiac size is normal. There is no evidence for pulmonary edema. There is no consolidation to suggest pneumonia. Mild right lower lung opacity favors atelectasis. IMPRESSION: No acute cardiopulmonary findings. Electronically signed by: Dakota Brito M.D. 10/25/2017 12:28 PM Dictated Date/Time: 10/25/2017 12:27 PM
[2017-10-25 12:50] LABS: BASO % 0.6 %; BASO ABS # 0.03 K/uL (0-0.2); EOS ABS # 0.21 K/uL (0-0.5); HEMATOCRIT 42.3 % (42-52); IG# 0.04 K/uL (0.00-0.02); LYMPH % 23.7 %; LYMPH ABS # 1.24 K/uL (1.2-3.4); MEAN CELL VOLUME 100.7 fL (80-100); MEAN CORPUSCULAR HEMOGLOBIN 33.3 pg (25-34); MEAN CORPUSCULAR HGB CONC 33.1 g/dl (32-36); MEAN PLATELET VOLUME 10.8 fL (7.4-10.4); MONO % 6.5 %; MONO ABS # 0.34 K/uL (0.11-0.59); NEUT % 64.4 %; NEUT ABS # 3.38 K/uL (1.4-6.5); PLATELET COUNT 166 K/uL (130-400); RED CELL DISTRIBUTION WIDTH CV 15.5 % (11.5-14.5); WHITE BLOOD COUNT 5.24 K/uL (4.8-10.8)
[2017-10-25 13:00] LABS: PTT PATIENT 25.4 SECONDS (21.0-31.0)
[2017-10-25 13:05] LABS: CALCIUM 7.9 mg/dl (8.5-10.1); CREATININE 1.62 mg/dl (0.60-1.40); POTASSIUM 4.3 mmol/L (3.5-5.1)
[2017-11-08] VITALS (15 sets, daily range): BP systolic 114–148; BP diastolic 71–92; PULSE 54–96; TEMP 36.3–36.5; O2SAT 92–98; Ht 188 cm; Wt 152.3 kg
[~2017-11-08] VITALS: Ht 188 cm; Wt 152.3 kg
[~2017-11-08 05:56] MED LIST changes: -DIPH-437 PO; +GABA-112 PO; -LIDO1PAD2 TD; -METO50TA16 PO; -NRN/100 PO; -NTRGSL/4 PO; -OXYC-57 PO; -PHEN10CA3 PO; -TEMA15CA4 PO; +TPRSR/25 PO
[2017-11-08] MEDS ORDERED: GABAPENTIN 600 MG PO SCH (06:00)
[2017-11-08] MEDS ORDERED: CeleBREX 200 MG CAP PO SCH (06:00)
[2017-11-08] MEDS ORDERED: CEFAZOLIN 3000MG IV PUSH 22.5 ML IV SCH (06:00)
[2017-11-08] MEDS ORDERED: LACTATED RINGER'S 1000ML 1,000 ML IV SCH (06:00)
[2017-11-08] MEDS ORDERED: ACETAMINOPHEN 500 MG TAB PO SCH (06:00)
[2017-11-08] MEDS ORDERED: FENTANYL CITRATE INJ 50 MCG/1 ML 2 ML VIAL ONE ×3 (06:40→08:33)
[2017-11-08] MEDS ORDERED: MIDAZOLAM HCL 1 MG/ML 2ML VIAL ONE (06:40)
[2017-11-08] MEDS ORDERED: VNTHFA/IN (06:43)
[2017-11-08] MEDS ORDERED: EpHEDrine SULFATE INJ 50 MG/ML AMP IV PRN (06:45)
[2017-11-08] MEDS ORDERED: ONDANSETRON INJ 2 MG/ML 2 ML VIAL IV PRN ×2 (06:45→09:30)
[2017-11-08] MEDS ORDERED: ATROPINE SULFATE 0.1 MG/ML 5ML SYR IV PRN (06:45)
[2017-11-08] MEDS ORDERED: BACITRACIN 50000 UNIT VIAL ONE (07:06)
--- NOTE | 2017-11-08 07:40 | History & Physical Bridge Note ---
H&P Re-Evaluation Bridge Note: I have examined the patient, reviewed the History & Physical and in the interval since the performance of the History & Physical I have noted the following changes of clinical significance: No changes noted
--- NOTE | 2017-11-08 07:41 | History and Physical ---
History & Physical Date Nov 08, 2017. Chief Complaint Neck and arm pain History of Present Illness The patient is a 62 year old male with complaints of neck and arm pain Past Medical/Surgical History Medical Problems: (1) Acute renal failure (2) Arthritis (3) GERD (gastroesophageal reflux disease) (4) HTN (hypertension) (5) HTN (hypertension) (6) Laceration of lower extremity (7) Osteoarthritis (8) Sleep apnea Surgical Problems: (1) Bariatric Surgery Status (2) History of cholecystectomy (3) History of hernia repair (4) S/P gastric bypass Additional History Hepatic Disease: No Endocrine Disorder: No Kidney Disease: No Hypertension: Yes Heart Disease: No Bleeding Tendencies: No Infectious Diseases: No Other: Diabetes Allergies Coded Allergies: Cephalexin (Unverified Adverse Reaction, Mild, "JUST DOESNT WORK" PER PT, 11/08/17) Home Medications Scheduled Albuterol Hfa (Ventolin Hfa), DIRECTED Allopurinol (Zyloprim), 300 MG PO QAM Diclofenac (Voltaren), 75 MG PO BID Furosemide (Furosemide), 20 MG PO QAM Gabapentin (Neurontin), 100 MG PO TID Metoprolol Succinate (Metoprolol Succinate ER), 25 MG PO QAM Omeprazole (Prilosec), 20 MG PO QAM Scheduled PRN Cyclobenzaprine Hcl (Flexeril), 1 TAB PO TID PRN for leg cramps Physical Examination Skin: warm/dry, no rash Eyes: normal inspection, EOMI, sclerae normal ENT: normal ENT inspection, pharynx normal Head: normocephalic, atraumatic Neck: supple, no adenopathy, trachea midline Respiratory/Chest: lungs clear, normal breath sounds, no respiratory distress Cardiovascular: regular rate, rhythm, no edema, no murmur Abdomen / GI: normal bowel sounds, non tender Back: normal inspection Extremities: normal inspection, normal range of motion Neurologic/Psych: no motor/sensory deficits, alert, normal reflexes, oriented x 3 Diagnosis Cervical spondylosis with radiculopathy Plan of Treatment ACDF C5-6 C6-7
[2017-11-08] MEDS ORDERED: HYDROmorphone INJ 2 MG/ML SYR/VIAL ONE ×2 (08:20→09:22)
[2017-11-08] MEDS ORDERED: FLOSEAL HEMOSTATIC MATRIX 10ML TOP ONE (09:16)
--- NOTE | 2017-11-08 09:25 | [facility] Operative Report ---
Operative Report Operative Date Nov 08, 2017. Pre-Operative Diagnosis Cervical Spondylosis with Radiculopathy Post-Operative Diagnosis Cervical Spondylosis with Radiculopathy Procedure(s) Performed 1. Anterior cervical discectomy bilateral foraminotomies C5-6 C6-7. #2 anterior cervical arthrodesis C5-6 C6-7. #3 placement of cortical allograft filled DBM 8 mm in height at C5-6 C6-7. #4 application of 5 complete and screws across C5-6 C6-7. Surgeon Director Digital Communications Surgeon(s) RONNY Figueroa Estimated Blood Loss 25cc Findings Severe spinal stenosis Specimens None Anesthesia Type General Description of Procedure Patient was met with preoperatively case discussed all questions addressed. After informed consent obtained patient was taken to the operative suite underwent intubation placed in supine position injected with head Mcneal headholder. All bony prominences well-padded eyes inspected to ensure no external pressure placed upon but this point the anterior cervical spine was prepped and draped in normal sterile fashion. With the assistance of fluoroscopy identified the C6 vertebral body and a transverse incision was placed along the right anterior aspect of the cervical spinal lines region. Sharp dissection with the assistance of bipolar cautery performed down to and exposing the anterior cervical spine. We verified our position with fluoroscopy and a self-retaining retractors placed. Then performed a complete discectomy at C5-6 up to the uncovertebral joints bilaterally. [place] distraction pins utilized to assist visualization. Removed all posterior annular fibers longitudinal ligament bilateral foraminotomies performed. Endplates burred to subcortical bleeding bone. 8 mm cortical allograft filled DBM was tapped in position. Then proceeded C6-7. Again complete discectomy performed up to the uncovertebral joints bilaterally. All posterior fibers longitudinal ligament foraminotomies performed. Endplates burred to subcortical bleeding bone. 8 mm cortical allograft filled DBM tapped in position. Distracting apparatus was removed. On anterior aspect burred to a smooth cortical surface and a mireles plate and screws applied with the assistance of fluoroscopy. Incision was then copious irrigated explored to ensure there is no damage to surrounding structures remaining bleeding. 10 round AYDIN drain inserted. Incision was then closed with 2 Vicryl to fascia 4 Monocryl fashion closure Steri-Strips are displaced. Patient will continue PACU stable discrete please note Nell Singh was present throughout the entire procedure involved in patient positioning complex portions of the surgery and fashion closure. I attest to the content of the Intraoperative Record and any orders documented therein. Any exceptions are noted below.
[2017-11-08] MEDS ORDERED: MAGNESIUM HYDROXIDE SUSP 30 ML UDC PO PRN (09:30)
[2017-11-08] MEDS ORDERED: DiphenhydrAMINE HCL 50 MG/ML VIAL IV PRN (09:30)
[2017-11-08] MEDS ORDERED: DO NOT ADMINISTER PNEUMOCOCCAL VACCINE PRN (09:30)
[2017-11-08] MEDS ORDERED: ACETAMINOPHEN IV 1,000 MG in EMPTY BAG 0 ML IV PRN (09:30)
[2017-11-08] MEDS ORDERED: DEXAMETHASONE INJ 8 MG in SYRINGE 0 ML IV PRN (09:30)
[2017-11-08] MEDS ORDERED: LORAZEPAM 0.5 MG TAB PO PRN (09:30)
[2017-11-08] MEDS ORDERED: DO NOT ADMINISTER FLU VACCINE PRN (09:30)
[2017-11-08] MEDS ORDERED: LORAZEPAM INJ 0.5 MG in SYRINGE 0.75 ML IV PRN (09:30)
[2017-11-08] MEDS ORDERED: ALBUTEROL HFA 8 GM INHALER INH PRN (09:30)
[2017-11-08] MEDS ORDERED: NALOXONE HCL 0.4 MG/1 ML VIAL/CARP IV PRN (09:30)
[2017-11-08] MEDS ORDERED: OXYCODONE HCL IR 5 MG TAB (IMMEDIATE RELEASE) PO PRN (09:30)
[2017-11-08] MEDS ORDERED: HYDROmorphone INJ 0.5 MG/0.5 ML SYR IV PRN (09:30)
[2017-11-08] MEDS ORDERED: RACEPINEPHRINE 2.25% NEBU SOLN 0.5 ML VIAL INH PRN (09:30)
[2017-11-08] MEDS ORDERED: ONDANSETRON INJ 2 MG/ML 2 ML VIAL ONE (09:31)
[2017-11-08] MEDS ORDERED: ROCURONIUM BROMIDE 10 MG/ML 5 ML VIAL ONE (09:31)
[2017-11-08] MEDS ORDERED: PROPOFOL IV EMULSION 10 MG/ML 20 ML VIAL ONE (09:31)
[2017-11-08] MEDS ORDERED: LIDOCAINE HCL 2% 2 ML VIAL (20MG/ML) ONE (09:31)
[2017-11-08] MEDS ORDERED: GLYCOPYRROLATE INJ 0.2 MG/ML VIAL ONE (09:31)
[2017-11-08] MEDS ORDERED: DEXAMETHASONE SOD INJ 4 MG/ML VIAL ONE (09:31)
[2017-11-08] MEDS ORDERED: NEOSTIGMINE METHYLSULFATE 1 MG/ML 10ML VIAL ONE (09:31)
[2017-11-08] MEDS ORDERED: EpHEDrine SULFATE 50MG/5ML SYR ONE (09:31)
--- NOTE | 2017-11-08 09:43 | DIAGNOSTIC IMAGING REPORT ---
CERVICAL 2 OR 3 VIEWS CLINICAL HISTORY: ACDF C5-C6 AND C6-C7 COMPARISON STUDY: Cervical spine MRI May 15, 2017. Fluoroscopy time: 15.9 seconds. FINDINGS: 3 fluoroscopic images demonstrate a C5-C6 and C6-C7 anterior discectomy and fusion. Hardware appears intact. IMPRESSION: Fluoroscopic images demonstrating a C5-C7 anterior discectomy and fusion. Electronically signed by: Dakota Brito M.D. 11/08/2017 9:42 AM Dictated Date/Time: 11/08/2017 9:40 AM
[2017-11-08] MEDS: FENTANYL CITRATE INJ 50 MCG/1 ML 2 ML VIAL IV PRN ×3 (10:04→10:33)
[2017-11-08] MEDS: SODIUM CHLORIDE 0.9% 1000ML 1,000 ML IV SCH (11:10)
[2017-11-08] MEDS: CLINDAMYCIN IV 600 MG in DEXTROSE 5% 50ML 50 ML IV SCH ×2 (11:57→20:03)
[2017-11-08] MEDS ORDERED: SCOPOLAMINE 1.5 MG TDSY TD SCH (12:00)
[2017-11-08] MEDS ORDERED: RXC5 PO (12:18)
--- NOTE | 2017-11-08 12:18 | Discharge Instructions ---
Discharge Instructions Date of Service Nov 08, 2017. Admission Reason for Admission: Cervical Spinal Stenosis Discharge Discharge Diagnosis / Problem: lumbar stenosis Discharge Goals Goal(s): Improve function Activity Recommendations Activity Limitations: per Instructions/Follow-up section . Instructions / Follow-Up Instructions / Follow-Up ACTIVITY RECOMMENDATIONS: SELF CARE INSTRUCTIONS AFTER THORACIC/LUMBAR FUSIONS 1. You may walk to your tolerance. It is good exercise for your legs and back. Expect some back and intermittent leg aches and pains. 2. You may perform "counter-top" level activities (make a sandwich, mode with a project, etc.). 3. No bending or lifting of more than 10 pounds or back twisting of any nature (roll like a log when turning in bed). 4. You may ride in a car for 20-30 minutes at a time. No driving until after your first visit with your doctor. 5. Frequent changes of position and restricting sitting to 30 minutes at a time will help limit the amount of back spasms and stiffness you may experience. 6. You may discontinue the use of ambulatory aids (cane, crutches, etc.) once your strength and confidence allow. 7. You may rfid systems engineer the shower and let water strike your incision when you arrive home at least once daily. Do not take a tub bath, sit in a hot tub or go into a swimming pool until after your first recheck in the office. SPECIAL CARE INSTRUCTIONS: VERY IMPORTANT TO READ AND REVIEW A. Your surgical incision has been closed with a cosmetic suture under the skin that will dissolve in about 6 weeks. In 14 days, you can use a pair of clean scissors and cut the suture that is left outside of the skin at the ends of your incision. 1. The small skin tapes can be removed 7 days after surgery if they have not fallen off by that point. 2. You may keep the wound open to air as much as possible to promote healing after post-op day number 5 unless told otherwise by your doctor. 3. If you think the wound looks like it is becoming infected (redness or worsening drainage) and/or you are experiencing fever, chill or worsening back pain and muscle spasms, contact the office so that we may evaluate you as soon as possible. B. Complications are uncommon, but please contact us if you have any signs or symptoms of: 1. wound infection (fever higher than 102.5 degrees F, redness, separation of wound, drainage, or increasing pain from the incision) 2. blood clots in legs (pain, swelling, redness and warmth in legs) 3. urinary tract infection (fever higher than 102.5 degrees F, burning upon urination or increased frequency of urination) 4. nerve problems (inability to walk on your toes or heels, numbness, loss of bowel or bladder control) 5. any other symptoms that concern you C. Please call the office at if you have any concerns or questions about your operation or recovery. D. No smoking! Smoking drastically decreases the chance of a solid fusion. E. Do not take any anti-inflammatory medications (Indocin, Advil, Motrin, Aspirin, Naprosyn, etc.) as these may inhibit the chance of a solid fusion. Tylenol is okay to take for pain. MANAGING PAIN AFTER SPINAL SURGERY 1. Narcotic medication is intended for short-term use and will be provided for surgical pain. Surgical pain usually lasts for a period of 4-6 weeks. Narcotic medication includes Percocet, Vicodin, Darvocet, Tylenol #3 or Lortab. 2. Longer-term pain is more appropriately treated with non-narcotic medication such as Tylenol ES. 3. Muscle spasm is not appropriately treated with narcotics. Muscle relaxers such as Soma, Flexeril or Skelaxin can be used along with Tylenol ES. 4. Remember that we all live with some "aches and pains". This is not unusual or uncommon after an injury or as we get older. a. Back pain is expected and may include muscle spasms for 4 to 6 weeks after surgery. The pain should gradually improve. If the pain worsens for no apparent reason, please contact the office. b. Intermittent leg pain may also be experienced and should not be concerned about unless it worsens for no apparent reason. If so, please contact the office. 5. We will provide appropriate medication within the normal guidelines of their prescribed use. We will also be very cautious and aware of potential abuse and extended duration of patients' medication needs. a. Pain medications are for your comfort and to assist with sleep and rest so that the tissue can heal. They are not provided in order to return to normal activity and should not be used through the day. To do so or worsening pain at night can result from ongoing tissue damage and development of tolerance to the prescribed medicine. 6. Please allow 2-3 days to process refills. Prescriptions will not be mailed but must be picked up at the office. FOLLOW UP VISIT: Keep your scheduled follow-up appointment. Any questions, please call the office at . Current Hospital Diet Patient's current hospital diet: Clear Liquid Diet Discharge Diet Recommended Diet: Regular Diet Procedures Procedures Performed: 1. Anterior cervical discectomy bilateral foraminotomies C5-6 C6-7. #2 anterior cervical arthrodesis C5-6 C6-7. #3 placement of cortical allograft filled DBM 8 mm in height at C5-6 C6-7. #4 application of 5 complete and screws across C5-6 C6-7. Pending Studies Studies pending at discharge: no Medical Emergencies . Who to Call and When: Medical Emergencies: If at any time you feel your situation is an emergency, please call 911 immediately. . Non-Emergent Contact Non-Emergency issues call your: Primary Care Provider . "Provider Documentation" section prepared by Panchito De La Cruz. .
--- NOTE | 2017-11-08 12:25 | Anesthesiology Progress Note ---
Anesthesia Post Op Note Date & Time Nov 08, 2017 at 12:25 Vital Signs Pain Intensity: 4.0 Vital Signs Past 12 Hours Date Time Temp Pulse Resp B/P (MAP) Pulse Ox O2 Delivery O2 Flow Rate FiO2 11/08/17 12:10 36.4 75 18 128/79 96 Nasal Cannula 2.0 Humidified Oxygen 11/08/17 11:40 36.4 65 18 135/85 94 Nasal Cannula 2.0 Humidified Oxygen 11/08/17 11:33 58 14 95 Nasal Cannula 2.0 11/08/17 11:10 92 Nasal Cannula 2.0 Humidified Oxygen 11/08/17 11:10 36.5 54 18 125/81 92 Nasal Cannula 2.0 Humidified Oxygen 11/08/17 11:05 57 21 139/83 94 Nasal Cannula 2 11/08/17 10:55 36.4 58 18 136/84 94 Nasal Cannula 2 11/08/17 10:45 63 15 140/87 93 Nasal Cannula 2 11/08/17 10:35 65 16 136/88 94 Nasal Cannula 2 11/08/17 10:25 69 19 124/92 93 Nasal Cannula 2 11/08/17 10:15 66 16 134/88 97 Oxymask 10 11/08/17 10:05 67 16 135/91 98 Oxymask 10 11/08/17 09:55 65 14 140/88 97 Oxymask 10 11/08/17 09:45 71 14 140/87 96 Oxymask 10 11/08/17 09:42 36 75 16 135/85 96 Oxymask 10 11/08/17 06:38 36.4 62 18 131/92 (105) 97 Room Air Notes Mental Status: alert / awake / arousable, participated in evaluation Pt Amnestic to Procedure: Yes Nausea / Vomiting: adequately controlled Pain: adequately controlled Airway Patency, RR, SpO2: stable & adequate BP & HR: stable & adequate Hydration State: stable & adequate Anesthetic Complications: no major complications apparent
[2017-11-08] MEDS ORDERED: IV FLUIDS COMPLETED PRN (12:45)
[2017-11-08] MEDS: GABAPENTIN 100 MG CAP PO SCH ×2 (14:07→20:03)
[2017-11-08] MEDS: CHECK SCOPOLAMINE PATCH PLACEMENT SCH (14:36)
[2017-11-08] MEDS: DOCUSATE SODIUM 100 MG CAP PO SCH (20:03)
[2017-11-09] VITALS (12 sets, daily range): BP systolic 129–154; BP diastolic 69–88; PULSE 68–99; TEMP 36.4–36.8; O2SAT 93–100
[2017-11-09] MEDS: CHECK SCOPOLAMINE PATCH PLACEMENT SCH ×2 (00:25→08:00)
[2017-11-09] MEDS: SODIUM CHLORIDE 0.9% 1000ML 1,000 ML IV SCH (00:27)
[2017-11-09] MEDS: CLINDAMYCIN IV 600 MG in DEXTROSE 5% 50ML 50 ML IV SCH (04:07)
[2017-11-09] MEDS ORDERED: METOPROLOL SUCC 25MG EXT REL TAB PO SCH (09:00)
[2017-11-09] MEDS ORDERED: FUROSEMIDE 20 MG TAB PO SCH (09:00)
[2017-11-09] MEDS ORDERED: ALLOPURINOL 300 MG TAB PO SCH (09:00)
[2017-11-09] MEDS ORDERED: PANTOprazole SOD 40 MG TAB PO SCH (09:00)
[2017-11-09] MEDS: GABAPENTIN 100 MG CAP PO SCH (09:10)
[2017-11-09] MEDS: DOCUSATE SODIUM 100 MG CAP PO SCH (09:10)
--- NOTE | 2017-11-09 10:17 | Discharge Summary ---
Orthopedic Discharge Summary Admission Date/Reason Nov 08, 2017 at 09:29 Cervical Spinal Stenosis. Discharge Date/Disposition Nov 09, 2017 Home Diagnosis Principal Diagnosis: Cervical spinal stenosis with radiculopathy Admission Physical Exam As per Admitting History & Physical. Hospital Course Separately. Postop day #1 is swallowing well arm symptoms improved AYDIN drain decreased appropriately subsequently discharged home. Discharge orders and instructions can be found in chart for further review. Discharge Instructions Please refer to the electronic Patient Visit Report (Discharge Instructions) for additional information.
[2017-11-10] MEDS ORDERED: BISACODYL 5 MG TABEC PO PRN (06:00)
[2017-11-10] MEDS ORDERED: BISACODYL 10 MG SUPP PR PRN (06:00)
[2017-11-11] MEDS ORDERED: POLYETHYLENE (MIRALAX) 17 GM PACK PO SCH (09:00)
== END 2017-11-09 12:00 | disposition home or self-care (01) ==
LOC: C.ACU 05:56 → C.3E 09:29 → ENRESERV 10:37
PROVIDERS: ADMIT Orthopaedic Surgery Orthopaedic Surgery of the Spine; ATTEND Orthopaedic Surgery Orthopaedic Surgery of the Spine
DX: M47.22 Other spondylosis with radiculopathy, cervical region (principal); I12.9 Hypertensive chronic kidney disease with stage 1 through stage 4 chronic kidney disease, or unspecified chronic kidney disease; K21.9 Gastro-esophageal reflux disease without esophagitis; M19.90 Unspecified osteoarthritis, unspecified site; E11.22 Type 2 diabetes mellitus with diabetic chronic kidney disease; Z79.899 Other long term (current) drug therapy; N18.3 Chronic kidney disease, stage 3 (moderate); I45.10 Unspecified right bundle-branch block; G47.33 Obstructive sleep apnea (adult) (pediatric); F17.220 Nicotine dependence, chewing tobacco, uncomplicated; E66.01 Morbid (severe) obesity due to excess calories; Z68.41 Body mass index [BMI] 40.0-44.9, adult; Z88.1 Allergy status to other antibiotic agents

== ENCOUNTER 2019-09-15 08:57 | Inpatient (IN) ==
--- NOTE | 2019-09-09 14:25 | Anesthesiology Consultation ---
Date of Service September 09, 2019 Assessment & Plan (1) Encounter for pre-operative examination: Patient seen in [facility] 06/01 for case originally scheduled for 07/09; R/S due to covid19 pandemic. Pre-op testing out of date. No drastic abnormalities on 05/10/19 labs. Will need to be updated AM DOS -- CBC, BMP, PT/INR/PTT. S/P Left TKA 05/16/18: SAB x 1 at L3/L4 + PNB at [facility] COVID Status: As of 09/08 nurse assessment, patient denies travel to endemic area, known exposure/sick contacts, or symptoms. He did travel to [place] and [facility] on 09/07 to visit with friends; states all wore masks and social distanced >6ft apart. He is being tested for covid19 as part of preoperative screening by surgeon on 09/08. Chart Review Chart Review: Acceptable Risk for Surgery (pending covid19 test results) and Patient NOT seen in Pre Admission Testing History Surgery Operation Date: 09/15/19 09:05 Proposed Procedures p Right Reverse Total Shoulder Arthroplasty - Mundo Martin, Height/Weight Height: 6 ft 2 in Weight: 149.685 kg Allergies Allergy/AdvReac Type Severity Reaction Status Date / Time cephalexin AdvReac Mild "JUST Verified 09/09/19 10:48 DOESNT WORK" PER PT Medications Home Medications Medication Instructions Recorded Confirmed Last Taken allopurinol 300 mg PO QAM 01/18/18 09/09/19 07/21/18 06:30 cyclobenzaprine 10 mg PO TID PRN 01/18/18 09/09/19 Unknown fluticasone propionate [Flonase 1 spray INTRANASAL DAILY PRN 01/18/18 09/09/19 07/20/18 21:00 Allergy Relief] omeprazole 20 mg PO QAM 01/18/18 09/09/19 07/21/18 06:30 furosemide 40 mg PO QAM 03/25/18 09/09/19 07/21/18 06:30 temazepam 15 mg capsule 30 mg PO HS PRN cap 12/11/18 09/09/19 Unknown betamethasone dipropionate 0.05 % 1 applic TOP TID PRN #45 gm 03/04/19 09/09/19 Unknown topical cream B-complex with vitamin C [Super B 1 tab PO DAILY 05/10/19 09/09/19 Unknown Complex-Vitamin C] diclofenac sodium 75 mg PO QAM 05/10/19 09/09/19 Unknown finasteride 5 mg PO QAM 05/10/19 09/09/19 Unknown multivitamin 1 tab PO DAILY 05/10/19 09/09/19 Unknown phentermine [Adipex-P] 37.5 mg PO QAM 05/10/19 09/09/19 Unknown zolpidem [Ambien] 10 mg PO HS 05/10/19 09/09/19 Unknown potassium gluconate 99 mg PO QAM 05/26/19 09/09/19 Unknown docusate sodium [Stool Softener] 100 mg PO DAILY PRN 09/09/19 09/09/19 Unknown tamsulosin 0.4 mg PO QAM 09/09/19 09/09/19 Unknown Past Medical History Medical History (Updated 09/09/19 @ 14:21 by Ryan Ramos) Chronic acquired lymphedema CKD (chronic kidney disease) stage 3, GFR 30-59 ml/min baseline creatinine 1.4-1.8 per chart review GERD (gastroesophageal reflux disease) Heart palpitations Hx tachycardia and palpitations. Current loop recorder (being monitored by cardiology)- episode of sinus tachy per 12/29/18 EP office visit. Pt to f/u in 1 year. History of gout History of sleep apnea hx ("resolved" s/p gastric bypass but not formally tested) HTN (hypertension) hx, controlled off meds per patient Osteoarthritis Past Family History Family History Mother Family history of diabetes mellitus Past Surgical History Surgical History Fusion of spine CERVICAL History of cholecystectomy History of colonoscopy History of loop recorder 2018 History of total left knee replacement (Acute) 04/2018 Hx of gastric bypass Social History Smoking Status: Former smoker tobacco type: smokeless tobacco Smoking cigarettes per day: HX OF "OCCASIONAL USE" DURING HIS TEENS/20'S Do You Dip or Chew Tobacco: Yes (CHEWS POUCH TOBACCO) Hx Alcohol Use: Yes Alcohol type: beer alcohol intake frequency: a few times a month Hx Substance Use: No substance use type: does not use Testing Other Testing Electrocardiogram Date: 05/10/19 NSR at 71bpm. RBBB. Chest X-Ray Date: 05/10/19 Persistent right basilar atelectasis. No new focal infiltrate. Borderline cardiomegaly. No congestive change or volume overload. Stress Test Date: 07/16/18 Type: DSE Normal dobutamine echo without evidence of inducible ischemia. Moderate concentric LVH. 89% max predicted heart rate. EF 60%. No significant valvular disease.
--- NOTE | 2019-09-15 06:37 | History & Physical Report ---
Date of Service September 15, 2019 Assessment & Plan (1) Rotator cuff tear arthropathy of right shoulder: We will proceed with a right reverse shoulder arthroplasty. Postoperatively he will be placed in an arm sling and kept overnight in the hospital for postoperative medical management. He plans to use Natanael Ulien upon discharge. Dakota is an increased risk for shoulder replacement surgery due to his stage III kidney disease, his chronic lymphedema, and his morbid obesity with a BMI of 42. Present on Admission?: Yes History of Present Illness Chief Complaint: Rotator cuff arthropathy of the right shoulder Primary Care Provider: Pita Montes MD Dakota is a pleasant 64-year-old male who has been dealing with chronic increasing right shoulder pain and weakness. He fell off of his porch about 6 months ago and his symptoms have become much worse. He has had trouble elevating above chest level. He has chronic shoulder pain. X-rays and clinical examination have been diagnostic for rotator cuff arthropathy of the right shoulder. After failing conservative treatment, he has elected to proceed with a right reverse shoulder arthroplasty. Allergies Allergy/AdvReac Type Severity Reaction Status Date / Time cephalexin AdvReac Mild "JUST Verified 09/09/19 10:48 DOESNT WORK" PER PT Home Medications Home Medications Medication Instructions Recorded Confirmed Type allopurinol 300 mg PO QAM 01/18/18 09/09/19 History cyclobenzaprine 10 mg PO TID PRN 01/18/18 09/09/19 History fluticasone propionate [Flonase 1 spray INTRANASAL DAILY PRN 01/18/18 09/09/19 History Allergy Relief] omeprazole 20 mg PO QAM 01/18/18 09/09/19 History furosemide 40 mg PO QAM 03/25/18 09/09/19 History temazepam 15 mg capsule 30 mg PO HS PRN cap 12/11/18 09/09/19 History betamethasone dipropionate 0.05 % 1 applic TOP TID PRN #45 gm 03/04/19 09/09/19 Rx topical cream B-complex with vitamin C [Super B 1 tab PO DAILY 05/10/19 09/09/19 History Complex-Vitamin C] diclofenac sodium 75 mg PO QAM 05/10/19 09/09/19 History finasteride 5 mg PO QAM 05/10/19 09/09/19 History multivitamin 1 tab PO DAILY 05/10/19 09/09/19 History phentermine [Adipex-P] 37.5 mg PO QAM 05/10/19 09/09/19 History zolpidem [Ambien] 10 mg PO HS 05/10/19 09/09/19 History potassium gluconate 99 mg PO QAM 05/26/19 09/09/19 History docusate sodium [Stool Softener] 100 mg PO DAILY PRN 09/09/19 09/09/19 History tamsulosin 0.4 mg PO QAM 09/09/19 09/09/19 History Past Med/Surg History Medical History Chronic acquired lymphedema CKD (chronic kidney disease) stage 3, GFR 30-59 ml/min baseline creatinine 1.4-1.8 per chart review GERD (gastroesophageal reflux disease) Heart palpitations Hx tachycardia and palpitations. Current loop recorder (being monitored by cardiology)- episode of sinus tachy per 12/29/18 EP office visit. Pt to f/u in 1 year. History of gout History of sleep apnea hx ("resolved" s/p gastric bypass but not formally tested) HTN (hypertension) hx, controlled off meds per patient Morbid obesity Osteoarthritis Surgical History Fusion of spine CERVICAL History of cholecystectomy History of colonoscopy History of loop recorder 2018 History of total left knee replacement (Acute) 04/2018 Hx of gastric bypass Family History Mother Family history of diabetes mellitus Social History Preferred Language: Slovak Communication Ability: Effective Ceramic Sprayer Required: No Beliefs That Will Affect Care: None marital status: Current Living Situation: Spouse Feels Safe at Home: Yes Smoking Status: Former smoker Tobacco Type: smokeless tobacco ; Cigarettes Per Day: HX OF "OCCASIONAL USE" DURING HIS TEENS/20'S ; Second Hand Exposure: Yes ( A CHILD) ; Hx Alcohol Use: Yes Alcohol type: beer Hx Substance Use: No Review of Systems Review of Systems: All systems reviewed & are unremarkable except as noted in HPI & below Physical Exam Constitutional: WD/WN, vitals as above Eyes: PERRL, conjunctivae normal, anicteric sclerae ENMT: external ear and nose normal, oropharynx normal Neck: trachea midline, no thyromegaly Respiratory: normal respiratory effort Cardiovascular: RRR, no murmur, no edema Gastrointestinal (Abdomen): normal bowel sounds, soft, nontender, no hepatosplenomegaly Musculoskeletal: Physical examination of the right shoulder reveals decreased range of motion and significant weakness. There is tenderness palpation along the anterior glenohumeral joint line. The right upper extremity is neurovascularly intact. Psychiatric: A+Ox3, euthymic affect Results & Data Results & Data ([place]) Diagnostic Findings Radiographs of the right shoulder show some signs of osteoarthritis with blunting of the greater tuberosity and some superior migration of the humeral head on the glenoid. PG Care Time/CCT Total # of Minutes Spent Total Time Spent with Patient: Total time spent is greater than 50% in coordination of care (as documented) at patient's floor/unit and/or counseling patient: Coding Level of Care Code 43387 Initial Inpt Care Lvl 3 Diagnoses Rotator cuff tear arthropathy of right shoulder M75.101; M12.811
[~2019-09-15 08:57] MED LIST changes: +ACETAMINOPHEN 500 MG TAB PO SCH; -ALLO300T2 PO; +BUPIVACAINE 0.5 % 5 MG/1 ML PF 10ML VIAL ONE; +CEFAZOLIN 3000MG 72.5 ML IV SCH; -CYCL10TA6 PO; -DICL-201 PO; +FAMOTIDINE 20 MG TAB PO SCH; -GABA-112 PO; +GABAPENTIN 600 MG DOSE PO SCH; +LR 60ML/HR IV SCH; -LSX20 PO; -OMEP20CA9 PO; +ROPIVACAINE 0.5% HCL/PF 150 MG, BUPIVACAINE 0.5% MPF 30 ML, EPINEPHrine 30MG/30ML (OR U... INFIL SCH; -TPRSR/25 PO; +TRANEXAMIC ACID 1,000 MG **IV Intra-op IV SCH; +TRANEXAMIC ACID 1,000 MG **IV Pre-op IV SCH; +dexAMETHasone 4 MG TAB PO SCH
[2019-09-15] MEDS: LR 15ML/HR IV SCH ×2 (09:29→10:07)
[2019-09-15 09:35] LABS: Hematocrit (blood only) 44.2 % (42-52); Hemoglobin 14.3 g/dL (14.0-18.0); Mean Corpuscular Hemoglobin 28.9 pg (25-34); Mean Corpuscular Volume 89.5 fL (80-100); Mean Platelet Volume 10.9 fL (7.4-10.4); Platelet Count 177 K/uL (130-400); RDW Coefficient of Variation 16.6 % (11.5-14.5); RDW Standard Deviation 54.5 fL (36.4-46.3); Red Blood Count 4.94 M/uL (4.7-6.1)
[2019-09-15 09:43] LABS: Mean Corpuscular Hgb Conc 32.4 g/dL (32-36)
[2019-09-15 09:46] LABS: BUN Creatinine Ratio 20.4 (10-20); Calcium 8.4 mg/dl (8.5-10.1); Creatinine Clr Calc Pharmacy 84.5 ml/min; Est GFR (Non-African American) 53.5; Potassium 3.8 mmol/L (3.5-5.1)
[2019-09-15 09:47] LABS: Partial Thromboplastin Time 28.2 Seconds (21.0-31.0); Prothrombin Time 10.5 Seconds (9.0-12.0)
[2019-09-15] MEDS ORDERED: MIDAZOLAM HCL 1 MG/ML 2ML VIAL ONE ×2 (10:26→11:20)
[2019-09-15] MEDS ORDERED: fentaNYL citrate 100 MCG/2 ML VIAL ONE ×2 (10:26→12:56)
[2019-09-15] MEDS ORDERED: fentaNYL citrate 100 MCG/2 ML VIAL IV PRN (11:28)
[2019-09-15] MEDS ORDERED: DEXAMETHASONE SOD INJ 4 MG/ML VIAL IV PRN (11:28)
[2019-09-15] MEDS ORDERED: ATROPINE SULFATE 0.1 MG/ML 10ML SYR IV PRN (11:28)
[2019-09-15] MEDS ORDERED: HYDROmorphone INJ 2 MG/ML SYR/VIAL IV PRN (11:28)
[2019-09-15] MEDS ORDERED: PROMETHAZINE HCL 12.5 MG in SODIUM CHLORIDE 0.9% 50 ML IV PRN (11:28)
[2019-09-15] MEDS ORDERED: ePHEDrine sulfate 50 MG/ML AMP IV PRN (11:28)
[2019-09-15] MEDS ORDERED: METOCLOPRAMIDE HCL INJ 5 MG/ML 2 ML VIAL IV PRN ×2 (11:28→15:21)
[2019-09-15] MEDS ORDERED: ONDANSETRON INJ 2 MG/ML 2 ML VIAL IV PRN ×2 (11:28→15:21)
[2019-09-15] MEDS ORDERED: ORTHO JOINT ANESTHETIC ONE (11:31)
[2019-09-15] MEDS ORDERED: DEXAMETHASONE SOD INJ 4 MG/ML VIAL ONE (11:36)
[2019-09-15] MEDS ORDERED: ONDANSETRON INJ 2 MG/ML 2 ML VIAL ONE (11:36)
[2019-09-15] MEDS ORDERED: PROPOFOL IV EMULSION 10 MG/ML 20 ML VIAL IV ONE (11:36)
[2019-09-15] MEDS ORDERED: LIDOCAINE HCL 2% 2 ML VIAL/AMP(20MG/ML) INFIL ONE (11:36)
[2019-09-15] MEDS ORDERED: PHENYLEPHRINE 100MCG/ML 5ML SYR ONE (12:24)
[2019-09-15] MEDS ORDERED: ePHEDrine sulfate 50 MG/ML AMP ONE (12:24)
[2019-09-15] MEDS ORDERED: VASOPRESSIN 20 UNIT/ML VIAL ONE (12:24)
[2019-09-15] MEDS ORDERED: PHENYLEPHRINE HCL 10 MG/ML VIAL ONE (12:59)
--- NOTE | 2019-09-15 13:32 | Operative Report ---
PG Post Operative Report Pre & Post Diagnosis Operation Date: 09/15/19 11:15 Pre-Op Diagnosis: RIGHT SHOULDER DEGENERATIVE JOINT DISEASE Post-Op Diagnosis: RIGHT SHOULDER DEGENERATIVE JOINT DISEASE I identified the patient and participated in the time-out.: Yes Procedure Operation Date: 09/15/19 11:15 Actual Procedures p Right Reverse Total Shoulder Arthroplasty(Right) - Mundo Martin DO Surgeon Mundo Martin DO [employer] Worker Mundo Vega PAC Estimated Blood Loss 350 Findings Consistent with Post-Op Diagnosis Specimens Right humeral head Complications none Disposition Disposition: Recovery Room Indications Dakota is a pleasant 64-year-old male who is been having several year history of increasing right shoulder pain. He fell recently and his shoulder pain has been much worse. X-rays and clinical examination were diagnostic for rotator cuff a rthropathy of the right shoulder. After failing conservative treatment, he elected proceed with a right reverse shoulder arthroplasty. Description of Procedure Implants used: I used a Biomet Comprehensive reverse total shoulder arthroplasty system with a size 14 press fit micro humeral stem, a standard humeral tray and a standard humeral bearing, a 25 mm mini baseplate with a 6.5 mm central screw and superior and inferior locking screws, and a size 40 mm eccentric glenosphere. Dakota arrived at [facility] for the above procedure. He was seen in the preoperative holding area and the operative extremity was identified and signed. He was given a preoperative antibiotic, TXA, and an interscalene nerve block. He was taken back to the operating room, laid on table in supine position, and put under general anesthesia. He was then put into the beachchair position. The shoulder was then prepped and draped in sterile fashion. A timeout was done and the patient and the operative extremity was properly identified. A deltopectoral approach was used. Dissection was taken down through the fascia and the deltoid was retracted laterally and the conjoined tendon was retracted medially. The anterior shoulder was exposed. The biceps groove was opened up and the biceps tendon absent from a traumatic tenotomy. The subscapularis was then directly released off the lesser tuberosity with a peel technique. The inferior capsule was released and the humeral head was dislocated. A canal finding reamer was sent down the center of the humeral canal. Sequential reaming up to a size reamer was done. Off that reamer, a proximal humeral resection guide was placed. The proximal humerus was resected at 135 of inclination and 25 of retroversion. Osteophytes were then removed and the glenoid was exposed. Time was spent doing a complete capsular and labral release. The glenoid guide was then placed in the inferior aspect of the glenoid. A 3.2 mm Steinmann pin was then placed into the glenoid vault at 10 of inclination. The glenoid baseplate was then reamed. The final size 25 mm baseplate was then impacted in the place. A 6.5 mm central screw was then placed followed by superior and inferior locking screws. A 40 mm eccentric glenosphere was then impacted into place. Surrounding soft tissues were then injected with 100 cc an orthopedic pain control cocktail. The proximal humerus was then exposed. Sequential broaching of the humerus up to a size 14 broach was done. Off that broach a standard humeral tray was trialed. The shoulder was then reduced, brought through a full range of motion, and felt to be stable. The shoulder was then dislocated and the broach was removed. The final size 14 micro press-fit humeral stem was then impacted into place. A standard humeral bearing was then snapped onto a standard humeral tray. The humeral tray was then impacted onto the humeral stem. The shoulder was once again reduced, brought through a full range of motion, and felt to be stable. The subscapularis was then tenodesed back to the lesser tuberosity with transosseous FiberWire sutures and side to side sutures with the arm in 45 of external rotation. A dilute betadyne lavage was then done for 3 minutes. The joint was then irrigated with normal saline solution. Hemostasis was obtained. The interval was closed with 2-0 Vicryl suture. The skin was then closed with 2-0 Vicryl and chanda. A soft dressing was placed and the arm was rested in a regular arm sling. He was then extubated and transferred to a hospital bed. He taken to the postanesthesia care unit in stable condition. He tolerated the procedure well. Mundo Vega PA-C, was present for the entire procedure. He was critical for patient positioning, prepping, draping, retraction exposure, wound closure and application of sterile dressing. I attest to the content of the Intraoperative Record and any orders documented therein. Any exceptions are noted below.
--- NOTE | 2019-09-15 14:02 | XRay Report ---
XR shoulder RT min 2V routine CLINICAL HISTORY: Post shoulder surgery COMPARISON STUDY: Right shoulder 01/25/2013. FINDINGS: Patient is status post a reverse right total shoulder arthroplasty. The hardware appears in tact. No fracture or dislocation. Skin chanda are in place. IMPRESSION: Status post reverse right total shoulder arthroplasty. No evidence for hardware complica tion. ACT 112: Negative or not required by law. Electronically signed by: Agapito Hernadez M.D. 09/15/2019 2:01 PM
--- NOTE | 2019-09-15 14:39 | Anesthesiology Progress Note ---
Date of Service September 15, 2019 Anesthesia Post Procedure Vital Signs Vital Signs: Temp Pulse Pulse Resp BP BP Pulse Ox 09/15/19 14:20 36.6 C 75 16 113/72 96 09/15/19 14:10 75 16 105/64 96 09/15/19 14:00 73 16 110/64 96 09/15/19 13:50 78 16 103/68 96 09/15/19 13:43 36.0 C L 70 16 98/64 L 94 09/15/19 09:47 36.6 C 67 18 129/81 Pain Intensity Right Shoulder: Pain Intensity: 10 Transfer of Care Handoff Completed per policy Notes Mental Status: alert / awake / arousable and participated in evaluation Patient Amnestic to Procedure: Yes Nausea / Vomiting: adequately controlled Pain: adequately controlled Airway Patency, RR, SpO2: stable & adequate BP & HR: stable & adequate Hydration State: stable & adequate Anesthetic Complications: no major complications apparent and see Notes below (In PACU, pt c/o numbness LLE. States motor function feels normal but having significant numbness which he has not had before. Pt admits to prior history of DDD. Discussed with surgeon. Plan is for observation and w/u if symptom persists.)
[2019-09-15] MEDS: SODIUM CHLORIDE 0.9% 1000ML 1,000 ML IV SCH ×2 (14:50→23:26)
[2019-09-15] MEDS ORDERED: TEMAZEPAM 15 MG CAPSULE PO PRN (15:21)
[2019-09-15] MEDS ORDERED: OXYCODONE HCL IR 5 MG TAB (IMMEDIATE RELEASE) PO PRN (15:21)
[2019-09-15] MEDS ORDERED: DOCUSATE SODIUM 100 MG CAP PO PRN (15:21)
[2019-09-15] MEDS ORDERED: HYDROmorphone INJ 0.5 MG/0.5 ML SYR IV PRN (15:21)
[2019-09-15] MEDS ORDERED: NALOXONE HCL 0.4 MG/1 ML VIAL/CARP IV PRN (15:21)
[2019-09-15] MEDS ORDERED: bisacodyL 10 MG SUPP PR PRN (15:21)
[2019-09-15] MEDS ORDERED: FLUTICASONE PROPIONATE NA SPR 16 GM BTL PRN (15:21)
[2019-09-15] MEDS ORDERED: MAGNESIUM HYDROXIDE SUSP 30 ML UDC PO PRN (15:21)
[2019-09-15] MEDS ORDERED: CYCLOBENZAPRINE HCL 10 MG TAB PO PRN (15:39)
[2019-09-15] MEDS: ACETAMINOPHEN 500 MG TAB PO SCH (17:19)
[2019-09-15] MEDS ORDERED: SENNA 8.6 MG TAB PO SCH (21:00)
[2019-09-15] MEDS ORDERED: ZOLPIDEM TARTRATE 10 MG TAB PO SCH (21:00)
[2019-09-15] MEDS: DOCUSATE SODIUM 100 MG CAP PO SCH (21:34)
[2019-09-15] MEDS: CEFAZOLIN 2000MG 2,000 MG/15 ML SYR IV SCH (21:34)
[2019-09-16] MEDS: ACETAMINOPHEN 500 MG TAB PO SCH ×2 (02:32→10:36)
[2019-09-16] MEDS: CEFAZOLIN 2000MG 2,000 MG/15 ML SYR IV SCH (04:08)
[2019-09-16 06:17] LABS: Hematocrit (blood only) 42.2 % (42-52); Hemoglobin 13.6 g/dL (14.0-18.0); Immature Granulocytes # (auto) 0.02 K/uL (0.00-0.02); Immature Granulocytes % (auto) 0.2 %; Lymphocytes # (auto) 0.38 K/uL (1.2-3.4); Lymphocytes % (auto) 3.9 %; Mean Corpuscular Hemoglobin 28.9 pg (25-34); Mean Corpuscular Hgb Conc 32.2 g/dL (32-36); Mean Corpuscular Volume 89.8 fL (80-100); Mean Platelet Volume 11.9 fL (7.4-10.4); Monocytes # (auto) 0.23 K/uL (0.11-0.59); Monocytes % (auto) 2.4 %; Neutrophils # (auto) 9.09 K/uL (1.4-6.5); Neutrophils % (auto) 93.5 %; Platelet Count 197 K/uL (130-400); RDW Coefficient of Variation 16.6 % (11.5-14.5); RDW Standard Deviation 54.1 fL (36.4-46.3); White Blood Count 9.72 K/uL (4.8-10.8)
[2019-09-16 06:47] LABS: BUN Creatinine Ratio 18.7 (10-20); Creatinine Clr Calc Pharmacy 67.8 ml/min; Est GFR (Non-African American) 41.4; Potassium 4.4 mmol/L (3.5-5.1)
--- NOTE | 2019-09-16 07:04 | Orthopedic Progress Note ---
Date of Service September 16, 2019 Assessment & Plan (1) Status post reverse arthroplasty of right shoulder: Overall he is doing very well. Is not having too much pain in the right shoulder. He will be seen by physical therapy this morning for ambulation and range of motion exercises. He can be discharged home later today. He will follow-up with orthopedics in 2 weeks. Present on Admission?: Yes Subjective Dakota was seen and examined at bedside this morning. Overall he is doing very well. Is not having much pain in the right shoulder. He was able to get some sleep last night. He has no complaints. Physical Exam Musculoskeletal: On physical examination of the right shoulder, the dressing is clean and dry. He is wearing a sling as instructed. His radial, median, and ulnar nerves are checked and intact at his wrist. Results & Data ([facility]) Vital Signs (Past 12 Hours) Vital Signs Temp Pulse Resp BP Pulse Ox 09/16/19 02:19 36.7 C 84 18 130/76 91 09/15/19 23:32 36.3 C L 81 16 109/68 90 Laboratory Results H & H 09/15/19 09/16/19 Range/Units 09:18 06:05 Hgb 14.3 13.6 L (14.0-18.0) g/dL Hct 44.2 42.2 (42-52) % Coagulation 09/15/19 Range/Units 09:18 INR 1.0 (0.9-1.1) Diagnostic Findings Postoperative x-rays of the right shoulder show the prosthesis to be in anatomic alignment without any evidence of fracture, dislocation, or loosening. PG Care Time/CCT Total # of Minutes Spent Total Time Spent with Patient: Total time spent is greater than 50% in coordination of care (as documented) at patient's floor/unit and/or counseling patient: Coding Level of Care Code None Diagnoses Status post reverse arthroplasty of right shoulder Z96.611
--- NOTE | 2019-09-16 07:05 | Discharge Summary ---
Date of Service September 16, 2019 Admission HPI Per Admitting Provider Dakota is a pleasant 64-year-old male who has been dealing with chronic increasing right shoulder pain and weakness. He fell off of his porch about 6 months ago and his symptoms have become much worse. He has had trouble elevating above chest level. He has chronic shoulder pain. X-rays and clinical examination have been diagnostic for rotator cuff arthropathy of the right shoulder. After failing conservative treatment, he has elected to proceed with a right reverse shoulder arthroplasty. Principal Diagnosis Right reverse shoulder arthroplasty Discharge Data Allergies Allergy/AdvReac Type Severity Reaction Status Date / Time cephalexin AdvReac Mild "JUST Verified 09/15/19 09:41 DOESNT WORK" PER PT Consultations 09/15/19 15:21 Consult Case Management - Discharge Planning Routine Procedures Performed Operation Date: 09/15/19 11:15 Actual Procedures p Right Reverse Total Shoulder Arthroplasty(Right) - Mundo Martin DO Ordered Studies 09/15/19 05:00 US - OR guided needle placemen Routine Hospital Course (1) Status post reverse arthroplasty of right shoulder: On September 15, 2019 Dakota arrived at Health system and underwent a right reverse shoulder arthroplasty without complication. He had a general anesthetic and a right interscalene nerve block. Postoperatively he was placed in a sling and transferred to the general orthopedic floors. His hospital course was uneventful. On postop day #1 his H&H was stable and his pain was well controlled. He was able to participate well with physical therapy doing ambulation and range of motion exercises. He was then discharged to home. He will follow-up with orthopedics in 2 weeks. Total Time Total Time Spent Total Time Spent (In Minutes): 20 Discharge Plan Discharge Items Patient Disposition: Home - Self-Care Reason For Visit: RIGHT SHOULDER DEGENERATIVE JOINT DISEASE Discharge Diagnosis: Right reverse shoulder arthroplasty Activity: As commented below Non-emergency contact: Surgeon Call non-emergency contact if: your wound has increased redness and your wound has increased drainage Follow-up/Referrals: Pita Montes MD [Primary Care Provider] - Diet: Carb Consistent or DM2 Addtl Attending Provider Instructions: Activity and Therapy Recommendations: * If you are using [facility] then therapy will be provided at your home until they feel you have accomplished all of your goals. * If you are using [facility] then Physical Therapy will be provided until they feel you are ready to start Outpatient Physical Therapy. * If you are not using home therapy then Outpatient Physical Therapy should start about 3-5 days from your day of surgery. Therapy will last about 8-12 weeks * Wear your sling for 3 weeks, unless otherwise instructed. You may remove your sling to shower and to dress, but otherwise, you should be in your sling at all times, including while sleeping * The shoulder replacement is very stable and you can use your hand while in the sling * You were shown a series of exercises in the hospital. Do these exercises daily including the exercises you were shown in physical therapy. Medications: * Narcotic You will likely be sent home from the hospital with a prescription for the narcotic pain medication that worked best throughout your stay. * Other medications may be prescribed for specific circumstances. If you have any questions, please call the office at . * Resume previous home medications unless otherwise instructed Dressing Care: Leave the plastic dressing in place for 5 days. After 5 days you may remove the plastic dressing. If the incision is not draining then you may leave the chanda open to air. If there is a little bit of drainage or if the chanda are getting stuck on your clothing then cover the incision with a dry dressing. The chanda will be removed at your 2 week follow-up appointment. Showering: You may shower with the plastic dressing in place. Let the shower spray hit the other shoulder. You can pat the plastic dry. If the dressing becomes wet underneath the plastic then simply remove the dressing. Keep the incision dry until you are 5 days out from the day of surgery. At that time you can shower with the chanda exposed. Let the soapy shower water run over the chanda and pat them dry. Do not scrub or soak the incision. Things To Watch For: * Drainage from the incision site that occurs more than one week after your surgery. * Increased redness at the incision site. * Fever above 102 degrees Fahrenheit. * Unusual chest pain or shortness of breath. * Call [facility] at with any of the above problems Follow-Up Visit: Follow-up with Dr. Martin's PA (Mundo Vega) 2-3 weeks after your day of surgery. He will remove your chanda and answer any questions. If you have any additional questions or concerns, Dr Martin is usually in the office at the same time and will be available An appointment was probably scheduled when you signed-up for surgery in the office. If you have any questions call More detailed instructions as well as Frequently Asked Questions were provided in a folder by our office when you signed-up for surgery. Please review these instructions when you get home. If you have any further questions or concerns, please feel free to call the office at [phone] Pending Studies at Discharge: No Stand-Alone Forms: My [facility], Smoking Cessation Medications and DC Order Prescriptions: New oxycodone 5 mg Tablet 5 mg PO Q4H PRN (Reason: pain) Qty: 30 RF: 0 Continued temazepam 15 mg capsule 30 mg PO HS PRN (Reason: sleep) RF: 0 betamethasone dipropionate 0.05 % cream 1 applic TOP TID PRN (Reason: skin irritation) Qty: 45 RF: 11 furosemide 40 mg tablet 40 mg PO QAM RF: 0 allopurinol 300 mg Tablet 300 mg PO QAM RF: 0 omeprazole 20 mg Tablet,Delayed Release (Dr/Ec) 20 mg PO QAM RF: 0 fluticasone propionate [Flonase Allergy Relief] 50 mcg/actuation [place],Suspension 1 spray Intranasal DAILY PRN (Reason: Congestion) RF: 0 cyclobenzaprine 10 mg Tablet 10 mg PO TID PRN (Reason: Spasms) RF: 0 potassium gluconate 595 mg (99 mg) Tablet Extended Release 99 mg PO QAM RF: 0 zolpidem [Ambien] 10 mg tablet 10 mg PO HS RF: 0 finasteride 5 mg tablet 5 mg PO QAM RF: 0 phentermine [Adipex-P] 37.5 mg capsule 37.5 mg PO QAM RF: 0 multivitamin Tablet 1 tab PO DAILY RF: 0 B-complex with vitamin C [Super B Complex-Vitamin C] Tablet 1 tab PO DAILY RF: 0 diclofenac sodium 75 mg tablet,delayed release (DR/EC) 75 mg PO QAM RF: 0 docusate sodium [Stool Softener] 100 mg Capsule 100 mg PO DAILY PRN (Reason: Constipation) RF: 0 tamsulosin 0.4 mg capsule 0.4 mg PO QAM RF: 0 Discharge Orders: Discharge Order (Routine); Ordered 09/16/19 Ordered By: Mundo Martin Admission Data Admit Date/Time: 09/15/19 13:46 Attending Provider: Mundo Martin Admit Provider: Mundo Martin Primary Care Provider: Pita Montes Coding Level of Care Code D/C Day Management <30 mins Diagnoses Status post reverse arthroplasty of right shoulder Z96.611
[2019-09-16] MEDS ORDERED: dexAMETHasone 4 MG TAB PO SCH (08:00)
[2019-09-16] MEDS: DOCUSATE SODIUM 100 MG CAP PO SCH (08:04)
[2019-09-16] MEDS ORDERED: NON-FORMULARY MEDICATION (Potassium Gluconate 99 MG) PO SCH (09:00)
[2019-09-16] MEDS ORDERED: FINASTERIDE 5 MG TAB PO SCH (09:00)
[2019-09-16] MEDS ORDERED: TAMSULOSIN HCL 0.4 MG CAP PO SCH (09:00)
[2019-09-16] MEDS ORDERED: allopurinoL 300 MG TAB PO SCH (09:00)
[2019-09-16] MEDS ORDERED: FUROSEMIDE 40 MG TAB PO SCH (09:00)
[2019-09-16] MEDS ORDERED: MULTIVITAMIN TAB PO SCH (09:00)
[2019-09-16] MEDS ORDERED: PANTOprazole 40 MG TAB PO SCH (09:00)
[2019-09-16] MEDS ORDERED: DICLOFENAC SODIUM 75 MG TABCR PO SCH (09:00)
== END 2019-09-16 13:49 | disposition home health service (06) | DRG 483 ==
LOC: ASU 08:57 → 3N 13:46

== ENCOUNTER 2020-06-10 06:27 | Inpatient (IN) ==
--- NOTE | 2020-06-07 09:13 | Anesthesiology Consultation ---
Date of Service June 07, 2020 Assessment & Plan (1) Encounter for pre-operative examination: - Per assessment on 05/18: Travel screen negative. No known COVID-19 positive contacts or current COVID-19 related symptoms. Surgeon arranged preop COVID te sting (jono 06/06- [place])- results pending. - S/P Right reverse TSA: 09/15/19: LMA#5, atraumatic attempt x1 + PNB at [facility] - EP visit: 01/04/20: "Initial monitoring not reveal any specific arrhythmia. He went implantation of loop recorder and presents clinic today for routine follow- up. He did have an activation for symptom of tachycardia. He states that these symptoms started while at rest. Through manifest as a sense of a rapid heartbeat. There were associated with some mild chest discomfort and dyspnea. He thinks it lasted for about 20 minutes. He previously was prescribed metoprolol but discontinued medication is a thought this made the symptoms worse. He also appear to have some concerns over but easy bruising and bleeding well on metoprolol. The symptoms currently happen approximately once every 2 months.. Palpitations: Patient has long history of palpitations and tachycardia. His loop recorder suggests a sinus tachycardia times of symptoms. Given his prior evaluation this appears to be a benign rhythm. Given the infrequent in relatively well tolerated nature of the events he has elected not to try any additional medical therapy. In the past, metoprolol seem to make his symptoms worse." F/U one year recommended. - Preop testing: Surgery originally scheduled for 04/19/20 (rescheduled in setting of COVID pandemic). Most recent EKG/CXR a little over one year old now in setting of rescheduled surgery date (done 04/2019 and unremarkable). At anesthesiologist discretion AM DOS if repeat needed. Chart Review Chart Review: Acceptable Risk for Surgery and Patient NOT seen in Pre Admission Testing History Surgery Operation Date: 06/10/20 08:30 Proposed Procedures p Left Reverse Total Shoulder Arthroplasty - Mundo Martin DO Height/Weight Height: 6 ft 2 in Weight: 151.046 kg Allergies Allergy/AdvReac Type Severity Reaction Status Date / Time cephalexin AdvReac Mild "doesn't Verified 05/18/20 13:23 work" per patient Medications Home Medications Medication Instructions Recorded Confirmed Last Taken allopurinol 300 mg PO QAM 01/18/18 05/18/20 09/15/19 07:00 cyclobenzaprine 10 mg PO TID PRN 01/18/18 05/18/20 Unknown fluticasone propionate [Flonase 1 spray INTRANASAL DAILY PRN 01/18/18 05/18/20 09/14/19 07:00 Allergy Relief] omeprazole 20 mg PO QA 01/18/18 05/18/20 09/15/19 07:00 furosemide 40 mg PO QA 03/25/18 05/18/20 07/21/18 06:30 betamethasone dipropionate 0.05 % 1 applic TOP TID PRN #45 gm 03/04/19 05/18/20 Unknown topical cream B-complex with vitamin C [Super B 1 tab PO [facility] 05/10/19 05/18/20 09/14/19 07:00 Complex-Vitamin C] diclofenac sodium 75 mg PO [facility] 05/10/19 05/18/20 1 Week Ago ~09/08/19 finasteride 5 mg PO [facility] 05/10/19 05/18/20 09/14/19 07:00 multivitamin 1 tab PO [facility] 05/10/19 05/18/20 Unknown phentermine [Adipex-P] 37.5 mg PO [facility] 05/10/19 05/18/20 1 Week Ago ~09/08/19 zolpidem [Ambien] 10 mg PO 05/10/19 05/18/20 09/14/19 23:00 potassium gluconate 99 mg PO [facility] 05/26/19 05/18/20 1 Week Ago ~09/08/19 docusate sodium [Stool Softener] 100 mg PO [facility] 09/09/19 05/18/20 Unknown tamsulosin 0.4 mg PO [facility] 09/09/19 05/18/20 09/14/19 07:00 oxycodone 5 mg PO Q4H PRN #30 tab 09/16/19 05/18/20 Unknown Past Medical History Medical History Chronic acquired lymphedema RLE (hx cellulitis 4+ years ago) CKD (chronic kidney disease) stage 3, GFR 30-59 ml/min baseline creatinine 1.4-1.8 per chart review GERD (gastroesophageal reflux disease) Heart palpitations Hx tachycardia and palpitations, current loop recorder (being monitored by cardiology) History of gout History of sleep apnea hx ("resolved" s/p gastric bypass but not formally tested) HTN (hypertension) hx, controlled off meds per patient Morbid obesity Osteoarthritis Past Family History Family History Mother Family history of diabetes mellitus Past Surgical History Surgical History Fusion of spine cervical History of cholecystectomy History of colonoscopy History of loop recorder 2018 History of total left knee replacement 04/2018 Hx of gastric bypass 15 years ago Status post reverse arthroplasty of right shoulder Right reverse TSA: 09/15/19: LMA#5, atraumatic attempt x1 + PNB at [facility] Social History Smoking Status: Former smoker tobacco type: cigarettes and smokeless tobacco Do You Dip or Chew Tobacco: Yes (1 CAN/DAY- ADVISED NPO AM DOS) Smoking End Date: QUIT SMOKING A TEEN Hx Alcohol Use: Yes Alcohol type: beer alcohol intake frequency: a few times a month substance use type: does not use Testing Laboratory Results 06/06/20 WBC 6.50 POTASSIUM 3.8 CHLORIDE 111 CO2 24 BUN 20 CREATININE 1.43 GLUCOSE 103 PT 9.8 PTT 24.9 INR 1.0 Electrocardiogram Date: 05/10/19 NSR at 71bpm. RBBB. Chest X-Ray Date: 05/10/19 Persistent right basilar atelectasis. No new focal infiltrate. Borderline cardiomegaly. No congestive change or volume overload. Stress Test Date: 07/16/18 Type: DSE Normal dobutamine echo without evidence of inducible ischemia. Moderate concentric LVH. 89% max predicted heart rate. EF 60%. No significant valvular disease.
--- NOTE | 2020-06-09 11:45 | History & Physical Report ---
Date of Service June 09, 2020 Assessment & Plan (1) Rotator cuff arthropathy of left shoulder: We will proceed with a left reverse shoulder arthroplasty. Postoperatively he will be placed in a sling and kept overnight in the hospital for postoperative medical management. He plans to use home health upon discharge. The same when he used after his October surgery. History of Present Illness Chief Complaint: Cuff arthropathy of the left shoulder. Primary Care Provider: Pita Montes MD Dakota is a pleasant 65-year-old male who is been dealing with chronic increasing left shoulder pain. X-rays and clinical examination have been diagnostic for rotator cuff arthropathy of the left shoulder. After failing conservative treatment, he has elected to proceed with a left reverse shoulder arthroplasty. I did a right reverse shoulder arthroplasty on him in August 2019. He has done well with that.. Allergies Allergy/AdvReac Type Severity Reaction Status Date / Time cephalexin AdvReac Mild "doesn't Verified 05/18/20 13:23 work" per patient Home Medications Medication Instructions Recorded Confirmed Type allopurinol 300 mg PO QAM 01/18/18 05/18/20 History cyclobenzaprine 10 mg PO TID PRN 01/18/18 05/18/20 History fluticasone propionate [Flonase 1 spray INTRANASAL DAILY PRN 01/18/18 05/18/20 History Allergy Relief] omeprazole 20 mg PO QAM 01/18/18 05/18/20 History furosemide 40 mg PO QAM 03/25/18 05/18/20 History betamethasone dipropionate 0.05 % 1 applic TOP TID PRN #45 gm 03/04/19 05/18/20 Rx topical cream B-complex with vitamin C [Super B 1 tab PO QAM 05/10/19 05/18/20 History Complex-Vitamin C] diclofenac sodium 75 mg PO QAM 05/10/19 05/18/20 History finasteride 5 mg PO QAM 05/10/19 05/18/20 History multivitamin 1 tab PO QAM 05/10/19 05/18/20 History phentermine [Adipex-P] 37.5 mg PO QAM 05/10/19 05/18/20 History zolpidem [Ambien] 10 mg PO HS 05/10/19 05/18/20 History potassium gluconate 99 mg PO QAM 05/26/19 05/18/20 History docusate sodium [Stool Softener] 100 mg PO QAM 09/09/19 05/18/20 History tamsulosin 0.4 mg PO QAM 09/09/19 05/18/20 History oxycodone 5 mg PO Q4H PRN #30 tab 09/16/19 05/18/20 Rx Past Med/Surg History Medical History Chronic acquired lymphedema RLE (hx cellulitis 4+ years ago) CKD (chronic kidney disease) stage 3, GFR 30-59 ml/min baseline creatinine 1.4-1.8 per chart review GERD (gastroesophageal reflux disease) Heart palpitations Hx tachycardia and palpitations, current loop recorder (being monitored by cardiology) History of gout History of sleep apnea hx ("resolved" s/p gastric bypass but not formally tested) HTN (hypertension) hx, controlled off meds per patient Morbid obesity Osteoarthritis Surgical History Fusion of spine cervical History of cholecystectomy History of colonoscopy History of loop recorder 2018 History of total left knee replacement 04/2018 Hx of gastric bypass 15 years ago Status post reverse arthroplasty of right shoulder Right reverse TSA: 09/15/19: LMA#5, atraumatic attempt x1 + PNB at [facility] Family History Mother Family history of diabetes mellitus Social History Smoking Status: Former smoker Second Hand Exposure: No; Hx Alcohol Use: Yes Alcohol type: beer Preferred Language: Chinese Communication Ability: Effective Box Car Bracer Required: No Beliefs That Will Affect Care: None marital status: Current Living Situation: Spouse Feels Safe at Home: Yes Assistive Devices: Glasses and Hearing Aid - Bilateral Review of Systems All systems reviewed & are unremarkable except as noted in HPI & below. Physical Exam On physical examination of the left shoulder, he has about 90 degrees forward elevation and 90 degrees of abduction. He has 3 out of 5 motor strength with full can testing and external rotation. Pain in the subacromial space.. Constitutional WD/WN, vitals as above Eyes PERRL, conjunctivae normal, anicteric sclerae ENMT external ear and nose normal, oropharynx normal Neck trachea midline, no thyromegaly Respiratory normal respiratory effort Cardiovascular RRR, no murmur, no edema Gastrointestinal (Abdomen) normal bowel sounds, soft, nontender, no hepatosplenomegaly Psychiatric A+Ox3, euthymic affect Results & Data Results & Data Laboratory Results . Diagnostic Findings X-rays of the left shoulder do show some signs of osteoarthritis. There is also superior migration of the humeral head on the glenoid and acetabularization of the acromion.. PG Care Time/CCT Total # of Minutes Spent Total Time Spent with Patient: Total time spent is greater than 50% in coordination of care (as documented) at patient's floor/unit and/or counseling patient: Coding Level of Care Code None Diagnoses Rotator cuff arthropathy of left shoulder M12.812
[~2020-06-10 06:27] MED LIST changes: -BUPIVACAINE 0.5 % 5 MG/1 ML PF 10ML VIAL ONE; -CEFAZOLIN 3000MG 72.5 ML IV SCH; +LR 15ML/HR IV SCH; -ROPIVACAINE 0.5% HCL/PF 150 MG, BUPIVACAINE 0.5% MPF 30 ML, EPINEPHrine 30MG/30ML (OR U... INFIL SCH; +ROPIVACAINE 0.5% HCL/PF 150 MG, BUPIVACAINE 0.75% MPF 20 ML, EPINEPHrine 30MG/30ML (OR ... INSTIL SCH
[2020-06-10] MEDS ORDERED: BUPIVACAINE 0.5 % 5 MG/1 ML PF 10ML VIAL ONE (06:34)
--- NOTE | 2020-06-10 06:56 | History & Physical Bridge Note ---
Date of Service June 10, 2020 History & Physical Bridge Note I have examined the patient, reviewed the History & Physical and in the interval since the performance of the History & Physical I have noted the following changes of clinical significance: no changes noted
[2020-06-10] MEDS ORDERED: LIDOCAINE HCL 2% 2 ML VIAL/AMP(20MG/ML) INFIL ONE (07:08)
[2020-06-10] MEDS ORDERED: GLYCOPYRROLATE 0.2 MG/ML VIAL ONE (07:08)
[2020-06-10] MEDS ORDERED: DEXAMETHASONE SOD INJ 4 MG/ML VIAL ONE (07:08)
[2020-06-10] MEDS ORDERED: NEOSTIGMINE METHYLSULFATE 5 MG/5 ML SYR ONE (07:08)
[2020-06-10] MEDS ORDERED: fentaNYL citrate 100 MCG/2 ML VIAL ONE ×2 (07:08→08:34)
[2020-06-10] MEDS ORDERED: PROPOFOL IV EMULSION 10 MG/ML 20 ML VIAL IV ONE (07:08)
[2020-06-10] MEDS ORDERED: ONDANSETRON INJ 2 MG/ML 2 ML VIAL ONE (07:08)
[2020-06-10] MEDS ORDERED: MIDAZOLAM HCL 1 MG/ML 2ML VIAL ONE (07:09)
[2020-06-10] MEDS ORDERED: ORTHO JOINT ANESTHETIC ONE (07:50)
[2020-06-10] MEDS ORDERED: fentaNYL citrate 100 MCG/2 ML VIAL IV PRN (07:59)
[2020-06-10] MEDS ORDERED: ATROPINE SULFATE 0.1 MG/ML 10ML SYR IV PRN (07:59)
[2020-06-10] MEDS ORDERED: ONDANSETRON INJ 2 MG/ML 2 ML VIAL IV PRN ×2 (07:59→10:47)
[2020-06-10] MEDS ORDERED: ePHEDrine sulfate 50 MG/ML AMP IV PRN (07:59)
[2020-06-10] MEDS ORDERED: PHENYLEPHRINE 100MCG/ML 5ML SYR ONE (08:32)
[2020-06-10] MEDS ORDERED: VASOPRESSIN 20 UNIT/ML VIAL ONE (08:32)
[2020-06-10] MEDS ORDERED: ePHEDrine sulfate 50 MG/ML SYR ONE (08:32)
--- NOTE | 2020-06-10 09:11 | Operative Report ---
PG Post Operative Report Pre & Post Diagnosis Operation Date: 06/10/20 08:30 Pre-Op Diagnosis: Rotator cuff arthropathy of the left shoulder Post-Op Diagnosis: Rotator cuff arthropathy of the left shoulder I identified the patient and participated in the time-out.: Yes Procedure Operation Date: 06/10/20 08:30 Actual Procedures p Left Reverse Total Shoulder Arthroplasty(Left) - Mundo Martin DO Surgeon Mundo Martin DO Wet Room Supervisor Mundo Vega PAC Estimated Blood Loss 250 Findings Consistent with Post-Op Diagnosis Specimens Left humeral head Complications none Disposition Disposition: Recovery Room Indications Dakota is a pleasant 65-year-old male who is been dealing with chronic increasing left shoulder pain. X-rays and clinical examination were diagnostic for cuff arthropathy of the left shoulder. After failing conservative treatment, he elected proceed with a left reverse shoulder arthroplasty. I did a right reverse shoulder arthroplasty on his other side about 6 months ago and he did well with that. Description of Procedure Implants used: I used a [employer] Comprehensive reverse total shoulder arthroplasty system with a size 14 press fit micro humeral stem, a standard humeral tray and a standard humeral bearing, a 25 mm mini baseplate with a 6.5 mm central screw and superior and inferior locking screws, and a size 40 mm eccentric glenosphere. Dakota arrived at [facility] for the above procedure. He was seen in the preoperative holding area and the operative extremity was identified and signed. He was given a preoperative antibiotic, TXA, and an interscalene nerve block. He was taken back to the operating room, laid on table in supine position, and put under general anesthesia. He was then put into the beachchair position. The shoulder was then prepped and draped in sterile fashion. A timeout was done and the patient and the operative extremity was properly identified. A deltopectoral approach was used. Dissection was taken down through the fascia and the deltoid was retracted laterally and the conjoined tendon was retracted medially. The anterior shoulder was exposed. The biceps tendon was chronically torn and not repairable. The subscapularis was also chronically torn and the capsule was peeled off of the lesser tuberosity. The inferior capsule was released and the humeral head was dislocated. A canal finding reamer was sent down the center of the humeral canal. Sequential reaming up to a size 14 reamer was done. Off that reamer, a proximal humeral resection guide was placed. The proximal humerus was resected at 135 of inclination and 25 of retroversion. Osteophytes were then removed and the glenoid was exposed. Time was spent doing a complete capsular and labral release. The glenoid guide was then placed in the inferior aspect of the glenoid. A 3.2 mm Steinmann pin was then placed into the glenoid vault at 10 of inclination. The glenoid baseplate was then reamed. The final size 25 mm mini baseplate was then impacted in the place. A 6.5 mm central screw was then placed followed by superior and inferior locking screws. A 40 mm eccentric glenosphere was then impacted into place. Surrounding soft tissues were then injected with 100 cc an orthopedic pain control cocktail. The proximal humerus was then exposed. Sequential broaching of the humerus up to a size 14 broach was done. Off that broach a standard humeral tray was trialed. The shoulder was then reduced, brought through a full range of motion, and felt to be stable. The shoulder was then dislocated and the broach was removed. The final size 14 micro press-fit humeral stem was then impacted into place. A standard humeral bearing was then snapped onto a standard humeral tray. The humeral tray was then impacted onto the humeral stem. The shoulder was once again reduced, brought through a full range of motion, and felt to be stable. The subscapularis was not repairable. A dilute betadyne lavage was then done for 3 minutes. The joint was then irrigated with normal saline solution. Hemostasis was obtained. The interval was closed with 2-0 Vicryl suture. The skin was then closed with 2-0 Vicryl and chanda. A Silverlon dressing was placed and the arm was rested in a regular arm sling. He was then extubated and transferred to a hospital bed. He taken to the postanesthesia care unit in stable condition. He tolerated the procedure well. Mundo Vega PA-C, was present for the entire procedure. He was critical for patient positioning, prepping, draping, retraction exposure, wound closure and application of sterile dressing. I attest to the content of the Intraoperative Record and any orders documented therein. Any exceptions are noted below.
--- NOTE | 2020-06-10 10:01 | XRay Report ---
XR shoulder LT min 2V routine CLINICAL HISTORY: Post shoulder surgery COMPARISON STUDY: None. FINDINGS: Status post reverse left total shoulder arthroplasty. The hardware appears intact. No fract ure or dislocation. Skin chanda are in place. IMPRESSION: Status post reverse left total shoulder arthroplasty. No evidence for hardware complicat ion. ACT 112: Negative or not required by law. Electronically signed by: Agapito Hernadez M.D. 06/10/2020 10:00 AM
--- NOTE | 2020-06-10 10:11 | Anesthesiology Progress Note ---
Date of Service June 10, 2020 Anesthesia Post Procedure Vital Signs Vital Signs: Temp Pulse Pulse Resp BP Pulse Ox 06/10/20 10:00 72 17 121/76 97 06/10/20 09:50 76 14 122/86 98 06/10/20 09:40 71 16 116/84 97 06/10/20 09:31 97.7 F 75 19 116/82 94 06/10/20 07:06 97.9 F 72 18 151/85 H 96 Pain Intensity Left Shoulder: Pain Intensity: 0 Transfer of Care Handoff Completed per policy Notes Mental Status: alert / awake / arousable and participated in evaluation Patient Amnestic to Procedure: Yes Nausea / Vomiting: adequately controlled Pain: adequately controlled Airway Patency, RR, SpO2: stable & adequate BP & HR: stable & adequate Hydration State: stable & adequate Anesthetic Complications: no major complications apparent and Pt Satisfied with anesthetic care
[2020-06-10] MEDS ORDERED: METOCLOPRAMIDE HCL INJ 5 MG/ML 2 ML VIAL IV PRN (10:47)
[2020-06-10] MEDS ORDERED: bisacodyL 10 MG SUPP PR PRN (10:47)
[2020-06-10] MEDS ORDERED: HYDROmorphone INJ 0.5 MG/0.5 ML SYR IV PRN (10:47)
[2020-06-10] MEDS ORDERED: FLUTICASONE PROPIONATE NA SPR 16 GM BTL PRN (10:47)
[2020-06-10] MEDS ORDERED: MAGNESIUM HYDROXIDE SUSP 30 ML UDC PO PRN (10:47)
[2020-06-10] MEDS ORDERED: oxyCODONE HCL IR 5 MG TAB (IMMEDIATE RELEASE) PO PRN (10:47)
[2020-06-10] MEDS ORDERED: NALOXONE HCL 0.4 MG/1 ML VIAL/CARP IV PRN (10:47)
[2020-06-10] MEDS: SODIUM CHLORIDE 0.9% 1000ML 1,000 ML IV SCH ×2 (11:22→21:20)
[2020-06-10] MEDS: ACETAMINOPHEN 500 MG TAB PO SCH ×2 (13:13→21:23)
[2020-06-10] MEDS ORDERED: ROCURONIUM BROMIDE 10 MG/ML 5 ML VIAL IV ONE (15:16)
[2020-06-10] MEDS: ceFAZolin 2000MG 2,000 MG/15 ML SYR IV SCH ×2 (16:35→23:38)
[2020-06-10] MEDS ORDERED: SENNA 8.6 MG TAB PO SCH (21:00)
[2020-06-10] MEDS ORDERED: ZOLPIDEM TARTRATE 10 MG TAB PO SCH (21:00)
[2020-06-10] MEDS: DOCUSATE SODIUM 100 MG CAP PO SCH (21:22)
[2020-06-11 06:15] LABS: Hematocrit (blood only) 39.3 % (42-52); Hemoglobin 12.8 g/dL (14.0-18.0); Immature Granulocytes # (auto) 0.03 K/uL (0.00-0.02); Immature Granulocytes % (auto) 0.3 %; Lymphocytes # (auto) 0.51 K/uL (1.2-3.4); Lymphocytes % (auto) 5.4 %; Mean Corpuscular Hemoglobin 29.7 pg (25-34); Mean Corpuscular Hgb Conc 32.6 g/dL (32-36); Mean Corpuscular Volume 91.2 fL (80-100); Mean Platelet Volume 11.3 fL (7.4-10.4); Monocytes # (auto) 0.45 K/uL (0.11-0.59); Monocytes % (auto) 4.8 %; Neutrophils # (auto) 8.48 K/uL (1.4-6.5); Neutrophils % (auto) 89.5 %; Platelet Count 179 K/uL (130-400); RDW Coefficient of Variation 16.5 % (11.5-14.5); RDW Standard Deviation 55.3 fL (36.4-46.3); Red Blood Count 4.31 M/uL (4.7-6.1); White Blood Count 9.47 K/uL (4.8-10.8)
[2020-06-11] MEDS: ACETAMINOPHEN 500 MG TAB PO SCH (06:22)
[2020-06-11 06:44] LABS: BUN Creatinine Ratio 20.5 (10-20); Calcium 8.5 mg/dl (8.5-10.1); Creatinine Clr Calc Pharmacy 83.3 ml/min; Est GFR (African American) 59.5; Est GFR (Non-African American) 51.3; Potassium 4.3 mmol/L (3.5-5.1)
[2020-06-11] MEDS: DOCUSATE SODIUM 100 MG CAP PO SCH (08:36)
--- NOTE | 2020-06-11 08:39 | Orthopedic Progress Note ---
Date of Service June 11, 2020 Assessment & Plan (1) Status post reverse arthroplasty of left shoulder: Overall he is doing well. Is not having much pain in the left shoulder. He will be seen by physical therapy today for ambulation and range of motion exercises. He can be discharged home later today. He already has pain medications at home. We will see him in the office in 2 weeks. Jesus Duncan was seen and examined at bedside this morning. Overall is doing very well. Is not having any pain in the left shoulder. He was able to get some sleep last night. He has been up and ambulating. He has no complaints.. Review of Systems All systems reviewed & are unremarkable except as noted in HPI & below. Physical Exam On physical examination of the left shoulder, the dressing is clean and dry. He is wearing his sling as instructed. His radial, median, and ulnar nerves are checked intact at his wrist. His axillary nerve was not checked yet.. Results & Data Results & Data Laboratory Results H & H 06/11/20 Range/Units 06:02 Hgb 12.8 L (14.0-18.0) g/dL Hct 39.3 L (42-52) % . Diagnostic Findings Postoperative x-rays of the left shoulder show the prosthesis to be in anatomic alignment without any evidence of fracture, dislocation, or loosening. PG Care Time/CCT Total # of Minutes Spent Total Time Spent with Patient: Total time spent is greater than 50% in coordination of care (as documented) at patient's floor/unit and/or counseling patient: Coding Level of Care Code 69783 Post Operative Follow-Up Diagnoses Status post reverse arthroplasty of left shoulder Z96.612
--- NOTE | 2020-06-11 08:40 | Discharge Summary ---
Date of Service June 11, 2020 Admission HPI (Per Admitting) Dakota is a pleasant 65-year-old male who is been dealing with chronic increasing left shoulder pain. X-rays and clinical examination have been diagnostic for rotator cuff arthropathy of the left shoulder. After failing conservative treatment, he has elected to proceed with a left reverse shoulder arthroplasty. I did a right reverse shoulder arthroplasty on him in August 2019. He has done well with that.. Admission Exam (Per Admitting) On physical examination of the left shoulder, he has about 90 degrees forward elevation and 90 degrees of abduction. He has 3 out of 5 motor strength with f ull can testing and external rotation. Pain in the subacromial space.. Principal Diagnosis Same as "Discharge Diagnosis" noted below under Discharge Instructions. Discharge Exam On physical examination of the left shoulder, the dressing is clean and dry. He is wearing his sling as instructed. His radial, median, and ulnar nerves are checked intact at his wrist. His axillary nerve was not checked yet.. Discharge Data Consultations 06/10/20 10:47 Consult Case Management - Discharge Planning Routine Procedures Performed Operation Date: 06/10/20 08:30 Actual Procedures p Left Reverse Total Shoulder Arthroplasty(Left) - Mundo Martin DO Ordered Studies 06/10/20 05:00 US - OR guided needle placemen Routine Hospital Course (1) Status post reverse arthroplasty of left shoulder: On June 10, 2020 Dakota arrived at [facility] and underwent a left reverse shoulder arthroplasty without complication. He had a general anesthetic and a left interscalene nerve block. Postoperatively he was placed in a sling and transferred to the general orthopedic floors. His hospital course was uneventful. On postop day #1 his H&H was stable and his pain was w ell controlled. He was able to participate well with physical therapy doing ambulation and range of motion exercises. He was then discharged home. He will follow-up with orthopedics in 2 weeks. PG Care Time/CCT Total # of Minutes Spent Total Time Spent with Patient: Total time spent is greater than 50% in coordination of care (as documented) at patient's floor/unit and/or counseling patient: Discharge Plan Discharge Items Patient Disposition: Home - Home Health Services Reason For Visit: Degenerative Joint Disease Shoulder Left Discharge Diagnosis: Left reverse shoulder Activity: As commented below Non-emergency contact: Surgeon Call non-emergency contact if: your wound has increased redness and your wound has increased drainage Follow-up/Referrals: Pita Montes MD [Primary Care Provider] - Diet: Regular Addtl Attending Provider Instructions: Activity and Therapy Recommendations: * If you are using [facility] then therapy will be provided at your home until they feel you have accomplished all of your goals. * If you are using [facility] then Physical Therapy will be provided until they feel you are ready to start Outpatient Physical Therapy. * If you are not using home therapy then Outpatient Physical Therapy should start about 3-5 days from your day of surgery. Therapy will last about 8-12 weeks * Wear your sling for 3 weeks, unless otherwise instructed. You may remove your sling to shower and to dress, but otherwise, you should be in your sling at all times, including while sleeping * The shoulder replacement is very stable and you can use your hand while in the sling * You were shown a series of exercises in the hospital. Do these exercises daily including the exercises you were shown in physical therapy. Medications: * Narcotic You will likely be sent home from the hospital with a prescription for the narcotic pain medication that worked best throughout your stay. * Other medications may be prescribed for specific circumstances. If you have any questions, please call the office at . * Resume previous home medications unless otherwise instructed Dressing Care: Leave the Silverlon dressing in place for 7 days. After 7 days you may remove the dressing. If the incision is not draining then you may leave the chanda open to air. If there is a little bit of drainage or if the chanda are getting stuck on your clothing then cover the incision with a dry dressing. The chanda will be removed at your 2 week follow-up appointment. Showering: You may shower with the Silverlon dressing in place. Do not let the shower spray hit the dressing directly. Pat the Silverlon dressing dry. If the dressing becomes wet underneath, then simply remove the dressing. Keep the incision dry until you are 7 days out from the day of surgery. After 7 days you may remove the Silverlon dressing and shower with the chanda exposed. Let soapy water run over the chanda and pat them dry. Do not scrub or soak the incision. Things To Watch For: * Drainage from the incision site that occurs more than one week after your s urgery. * Increased redness at the incision site. * Fever above 102 degrees Fahrenheit. * Unusual chest pain or shortness of breath. * Call [facility] at with any of the above problems Follow-Up Visit: Follow-up with Dr. Martin's PA (Mundo Vega) 2-3 weeks after your day of surgery. He will remove your chanda and answer any questions. If you have any additional questions or concerns, Dr Martin is usually in the office at the same time and will be available An appointment was probably scheduled when you signed-up for surgery [facility] the [facility]. If you have any questions call More detailed instructions as well as Frequently Asked Questions were provided in a folder by our office when you signed-up for surgery. Please review these instructions when you get home. If you have any further questions or concerns, please feel free to call the office at [phone] Pending Studies at Discharge: No Stand-Alone Forms: [facility], Smoking Cessation Medications and DC Order Prescriptions: Continued betamethasone dipropionate 0.05 % cream 1 applic TOP TID PRN (Reason: skin irritation) Qty: 45 RF: 11 furosemide 40 mg tablet 40 mg PO QAM RF: 0 allopurinol 300 mg Tablet 300 mg PO QAM RF: 0 omeprazole 20 mg Tablet,Delayed Release (Dr/Ec) 20 mg PO QAM RF: 0 fluticasone propionate [Flonase Allergy Relief] 50 mcg/actuation [place],Suspension 1 spray Intranasal DAILY PRN (Reason: Congestion) RF: 0 cyclobenzaprine 10 mg Tablet 10 mg PO TID PRN (Reason: Spasms) RF: 0 potassium gluconate 595 mg (99 mg) Tablet Extended Release 99 mg PO QAM RF: 0 zolpidem [Ambien] 10 mg tablet 10 mg PO HS RF: 0 finasteride 5 mg tablet 5 mg PO QAM RF: 0 phentermine [Adipex-P] 37.5 mg capsule 37.5 mg PO QAM RF: 0 multivitamin Tablet 1 tab PO QAM RF: 0 B-complex with vitamin C [Super B Complex-Vitamin C] Tablet 1 tab PO QAM RF: 0 diclofenac sodium 75 mg tablet,delayed release (DR/EC) 75 mg PO QAM RF: 0 docusate sodium [Stool Softener] 100 mg Capsule 100 mg PO QAM RF: 0 tamsulosin 0.4 mg capsule 0.4 mg PO QAM RF: 0 oxycodone 5 mg Tablet 5 mg PO Q4H PRN (Reason: pain) Qty: 30 RF: 0 Discharge Orders: Discharge Order (Routine); Ordered 06/11/20 Ordered By: Mundo Martin Admission Data Admit Date/Time: 06/10/20 10:40 Attending Provider: Mundo Martin Admit Provider: Mundo Martin Primary Care Provider: Pita Montes Other Providers: [facility],Home Health
[2020-06-11] MEDS ORDERED: DOCUSATE SODIUM 100 MG CAP PO SCH (09:00)
[2020-06-11] MEDS ORDERED: NON-FORMULARY MEDICATION (Potassium Gluconate 595 mg (99 mg) Tablet Extended Release) PO SCH (09:00)
[2020-06-11] MEDS ORDERED: TAMSULOSIN HCL 0.4 MG CAP PO SCH (09:00)
[2020-06-11] MEDS ORDERED: FINASTERIDE 5 MG TAB PO SCH (09:00)
[2020-06-11] MEDS ORDERED: FUROSEMIDE 40 MG TAB PO SCH (09:00)
[2020-06-11] MEDS ORDERED: PANTOprazole 40 MG TAB PO SCH (09:00)
[2020-06-11] MEDS ORDERED: allopurinoL 300 MG TAB PO SCH (09:00)
[2020-06-11] MEDS ORDERED: MULTIVITAMIN TAB PO SCH (09:00)
== END 2020-06-11 14:07 | disposition home health service (06) | DRG 483 ==
LOC: ASU 06:27 → 3E 10:40

== ENCOUNTER 2021-09-22 09:52 | Observation (INO) ==
--- NOTE | 2021-08-28 10:08 | PAT Medication Instructions ---
Medication Instructions Date of Service August 28, 2021 Home Medications Medication Instructions Recorded betamethasone dipropionate 0.05 % 1 applic TOP TID PRN #45 gm 03/04/19 topical cream allopurinol 300 mg tablet 300 mg PO QAM cyclobenzaprine 10 mg tablet 10 mg PO TID PRN fluticasone propionate 50 mcg/actuation nasal spray,suspension (Flonase Allergy Relief) 1 spray INTRANASAL DAILY PRN omeprazole 20 mg tablet,delayed release 20 mg PO QAM furosemide 40 mg tablet 40 mg PO QAM betamethasone dipropionate 0.05 % topical cream 1 applic TOP TID PRN B-complex with vitamin C (Super B Complex-Vitamin C) 1 tab PO QAM diclofenac sodium 75 mg tablet,delayed release 75 mg PO QAM finasteride 5 mg tablet 5 mg PO QAM multivitamin 1 tab PO QAM phentermine 37.5 mg capsule (Adipex-P) 37.5 mg PO QAM zolpidem 10 mg tablet (Ambien) 10 mg PO HS potassium gluconate 595 mg (99 mg) tablet,extended release 99 mg PO QAM docusate sodium 100 mg capsule (Stool Softener) 100 mg PO QAM PRN tamsulosin 0.4 mg capsule 0.4 mg PO QAM diphenhydramine 25 mg-acetaminophen 500 mg tablet (Tylenol PM Extra Strength) 1 tab PO HS ASK your surgeon for instructions diclofenac sodium 75 mg tablet,delayed release 75 mg PO QAM STOP taking 2 weeks before surgery STOP 5 days before surgery phentermine 37.5 mg capsule (Adipex-P) 37.5 mg PO QAM STOP taking 24 hours before surgery betamethasone dipropionate 0.05 % topical cream 1 applic TOP TID PRN DO NOT take the morning of surgery cyclobenzaprine 10 mg tablet 10 mg PO TID PRN furosemide 40 mg tablet 40 mg PO QAM B-complex with vitamin C (Super B Complex-Vitamin C) 1 tab PO QAM multivitamin 1 tab PO QAM potassium gluconate 595 mg (99 mg) tablet,extended release 99 mg PO QAM docusate sodium 100 mg capsule (Stool Softener) 100 mg PO QAM PRN Take morning of surgery With a small sip of water, OTHERWISE NOTHING TO EAT OR DRINK AFTER MIDNIGHT: allopurinol 300 mg tablet 300 mg PO QAM fluticasone propionate 50 mcg/actuation nasal spray,suspension (Flonase Allergy Relief) 1 spray INTRANASAL DAILY PRN(if needed) omeprazole 20 mg tablet,delayed release 20 mg PO QAM finasteride 5 mg tablet 5 mg PO QAM tamsulosin 0.4 mg capsule 0.4 mg PO QAM Take evening before surgery cyclobenzaprine 10 mg tablet 10 mg PO TID PRN(if needed) fluticasone propionate 50 mcg/actuation nasal spray,suspension (Flonase Allergy Relief) 1 spray INTRANASAL DAILY PRN(if needed) zolpidem 10 mg tablet (Ambien) 10 mg PO HS diphenhydramine 25 mg-acetaminophen 500 mg tablet (Tylenol PM Extra Strength) 1 tab PO HS Other Notes If you have any questions please call us at [phone] or [phone] or [phone] or [phone]
--- NOTE | 2021-08-29 12:12 | Anesthesiology Consultation ---
Date of Service August 29, 2021 Assessment & Plan (1) Encounter for pre-operative examination: Chart Review Chart Review: Acceptable Risk for Surgery (pending PCP clearance (09/05/21), most recent loop recorder report if available) and preop Covid testing results ) and Patient seen in Pre Admission Testing -Awaiting PCP clearance scheduled 09/05/21 -Will attempt to get most recent loop recorder report Per cardio response if patient is optimized for surgery 08/29/21 (per [employer] note)= "Since he has had no further chest pain, I do not feel as though he requires a stress test prior to surgery. If his breathing has been stable and he is otherwise asymptomatic from a cardiac standpoint, he can proceed with surgery." (Pt denies any further chest pain at PAT appt; breathing stable) Per PAT appt on 08/29/21, patient denies any recent travel or large group activities. No known Covid positive exposures or Covid related symptoms. No known Covid infection in the past 90 days. Pt is vaccinated for Covid Preop Covid testing scheduled 09/20/21= will await results. Educated on importance of self quarantining, social distancing and wearing mask in public for the patient one week prior to surgery and after Covid testing done Last seen by cardio 07/20/21= pt recently in ER on 07/04/21 for palpitations and chest pain- work up unremarkable. He has a longstanding history of similar episodes with no specific etiology identified. Loop recorder was interrogated did not show any arrhythmia to explain symptoms. Had DSE in the past for symptoms but was negative for ischemia. It has been 3 years since last ischemic evaluationpossibly repeat stress test. Patient would like to think it over before undergoing any further testing. No change in medical therapy. Open reduction with revision left shoulder replacement 06/23/20= Done under [facility] with LMA #5 with 1 attempt. Atraumatic/good seal Teaching & Discussion Pre-Anesthesia Teaching/Discussion Notes: Instructed NPO after midnight before surgery,except medications with 15 cc of water. Medication instructions provided according to the PAT guidelines. History Surgery Operation Date: 09/22/21 07:00 Proposed Procedures p Right Total Knee Arthroplasty - Mundo Martin, DO Height/Weight Height: 6 ft 2 in Weight: 143.7 kg Allergies Allergy/AdvReac Type Severity Reaction Status Date / Time cephalexin AdvReac Mild "doesn't Verified 08/25/21 11:52 work" per patient Medications Home Medications Medication Instructions Recorded Confirmed Last Taken allopurinol 300 mg tablet [address] [facility] 01/18/18 08/29/21 06/23/20 cyclobenzaprine 10 mg tablet 10 mg PO TID PRN 01/18/18 08/29/21 Unknown fluticasone propionate 50 1 spray INTRANASAL DAILY PRN 01/18/18 08/29/21 06/23/20 mcg/actuation nasal spray,suspension (Flonase Allergy Relief) omeprazole 20 mg tablet,delayed [address] [facility] 01/18/18 08/29/21 06/23/20 release furosemide 40 mg tablet [address] [facility] 03/25/18 08/29/21 06/23/20 betamethasone dipropionate 0.05 % 1 applic TOP TID PRN #45 gm 03/04/19 08/29/21 Unknown topical cream B-complex with vitamin C (Super B [address] [facility] 05/10/19 08/29/21 06/23/20 Complex-Vitamin C) diclofenac sodium [address] [facility] 05/10/19 08/29/21 06/23/20 tablet,delayed release finasteride 5 mg tablet [address] [facility] 05/10/19 08/29/21 06/23/20 multivitamin [address] [facility] 05/10/19 08/29/21 06/23/20 phentermine 37.5 mg capsule 37.[address] [facility] 05/10/19 08/29/21 06/23/20 (Adipex-P) zolpidem 10 mg tablet (Ambien) 10 mg PO 05/10/19 08/29/21 06/22/20 potassium gluconate 595 mg (99 mg) [address] [facility] 05/26/19 08/29/21 06/23/20 tablet,extended release docusate sodium 100 mg capsule 100 mg PO QAM PRN 09/09/19 08/29/21 06/23/20 (Stool Softener) tamsulosin 0.4 mg capsule 0.[address] [facility] 09/09/19 08/29/21 06/23/20 diphenhydramine 25 1 tab PO 08/25/21 08/29/21 Unknown mg-acetaminophen 500 mg tablet (Tylenol PM Extra Strength) Past Medical History Medical History (Updated 08/29/21 @ 16:23 by Kandis Peraza PA-C) Chronic acquired lymphedema RLE (Hx cellulitis 5+ years ago) CKD (chronic kidney disease) stage 3, GFR 30-59 ml/min Baseline creatinine 1.4-1.8 per chart review-F/U PCP GERD (gastroesophageal reflux disease) Well controlled and stable Heart palpitations Hx tachycardia and palpitations, current loop recorder (being monitored by cardiology) No issues x months History of gout History of sleep apnea Hx ("resolved" s/p gastric bypass but not formally tested) HTN (hypertension) Hx-TAKES DIURETIC Hydrocele RIGHT- STABLE Morbid obesity Exercise / Class Metabolic Activity III < 4 Walking/Shop/Light housework (one flight of stairs- no chest pain, mild SOB ) Past Family History Family History Mother Family history of diabetes mellitus Past Surgical History Surgical History Fusion of spine cervical History of cholecystectomy History of colonoscopy History of loop recorder 2018 History of total left knee replacement 04/2018 Hx of gastric bypass 15 years ago Status post reverse arthroplasty of left shoulder (~05/2020) Status post reverse arthroplasty of right shoulder Right reverse TSA: 09/15/19: LMA#5, atraumatic attempt x1 + PNB at [facility] Past Anesthesia History No Hx of Anesthesia Complications and No Family Hx of Anesthesia Complications History of PONV No Hx of PONV and No Hx of Motion Sickness Social History Smoking Status: Never smoker tobacco type: smokeless tobacco Do You Dip or Chew Tobacco: Yes (1 CAN PER 4-5 DAYS) Smoking End Date: A TEEN Hx Alcohol Use: Yes Alcohol type: beer alcohol intake frequency: a few times a month Hx Substance Use: No substance use type: does not use Review of Systems Patient denies chest pain, shortness of breath at rest, cough, wheezing, palpitations. No hx of seizures, stroke, [place]. No hx of blood clots or blood transfusions Physical Exam Vital Signs VITALS BP 131/81 P 73 TEMP 97.8 SP02 96% RESP 16 Constitutional no acute distress ENMT Mouth: no TMJ clicking Thyromental Distance: > or= 3.5 Finger Breadths (3.5) Mallampati Class: II Missing top right front tooth; missing side teeth and molars Neck + limited neck extension (mild ) and + facial hair (advised to shave or trim ) Respiratory normal respiratory effort; no respiratory distress Auscultation: lungs clear to auscultation bilaterally; no wheezes Cardiovascular Rate/Rhythm: regular rate and regular rhythm Heart Sounds: no murmur Vessels: no carotid bruit Musculoskeletal Spine: no pain with cervical ROM Extremities: extremities normal to inspection Psychiatric Orientation: alert Lab Results Anesthesia Preop Results Results Anesthesia Widget: WBC 5.38 K/uL (4.8-10.8) 08/29/21 Hgb 14.2 g/dL (14.0-18.0) 08/29/21 Hct 44.4 % (42-52) 08/29/21 Plt 188 K/uL (130-400) 08/29/21 Na 143 mmol/L (136-145) 08/29/21 K 4.0 mmol/L (3.5-5.1) 08/29/21 Cl 110 mmol/L (98-107) H 08/29/21 CO2 25 mmol/L (21-32) 08/29/21 BUN 26 mg/dl (6-23) H 08/29/21 Creat 1.35 mg/dl (0.6-1.4) 08/29/21 Glucose Level 99 mg/dl (70-99(Fasting)) 08/29/21 PT 11.0 Seconds (9.0-12.0) 08/29/21 PTT 27.5 Seconds (21.0-31.0) 08/29/21 INR 1.0 (0.9-1.1) 08/29/21 Blood Type A Positive 08/29/21 Antibody Screen NEGATIVE 08/29/21 Testing Electrocardiogram Date: 08/29/21 SR with PACs at 71bpm. RBBB. Chest X-Ray Date: 08/29/21 Findings: + NAD FINDINGS: No pneumothorax. No pleural effusions. The heart is normal in size. The lungs are clear. Cervical spinal fusion hardware is partially visualized. T here are bilateral total shoulder arthroplasties. There is a small loop recorder overlying the cardiac silhouette. IMPRESSION: No significant change compared to the prior study. No acute process. Stress Test Date: 07/16/18 Type: DSE Resting EF: 60% Valvular Disease: no significant valvular disease Normal dobutamine echocardiogram without evidence of inducible ischemia. LV is normal size and systolic function. Moderate concentric LVH. No evidence of wall motion abnormalities present.
[~2021-09-22 09:52] MED LIST changes: +BUPIVACAINE 0.5 % 5 MG/1 ML PF 10ML VIAL ONE; +EPINEPHrine INJ 1 MG/ML AMP ONE; +Ketorolac (*for OR use only*) 30 MG, dexAMETHasone 4 MG, KETAMINE HCL (**OR use only) 1... INFIL SCH; -LR 15ML/HR IV SCH; +LR 500ML BOLUS, THEN 15ML/HR IV SCH; +ROPIVACAINE 0.5% 5 MG/ML 30 ML VIAL ONE; -ROPIVACAINE 0.5% HCL/PF 150 MG, BUPIVACAINE 0.75% MPF 20 ML, EPINEPHrine 30MG/30ML (OR ... INSTIL SCH
--- NOTE | 2021-09-22 10:39 | History & Physical Bridge Note ---
Date of Service September 22, 2021 History & Physical Bridge Note I have examined the patient, reviewed the History & Physical and in the interval since the performance of the History & Physical I have noted the following changes of clinical significance: no changes noted
[2021-09-22] MEDS ORDERED: ONDANSETRON INJ 2 MG/ML 2 ML VIAL IV PRN ×2 (11:24→15:27)
[2021-09-22] MEDS ORDERED: HYDROmorphone INJ 1 MG/ML SYRINGE IV PRN (11:24)
[2021-09-22] MEDS ORDERED: PHENYLEPHRINE 100MCG/ML 5ML SYR IV PRN (11:24)
[2021-09-22] MEDS ORDERED: fentaNYL citrate 100 MCG/2 ML VIAL IV PRN (11:24)
[2021-09-22] MEDS ORDERED: ePHEDrine sulfate 50 MG/ML AMP IV PRN (11:24)
[2021-09-22] MEDS ORDERED: ATROPINE SULFATE 0.1 MG/ML 10ML SYR IV PRN (11:24)
[2021-09-22] MEDS ORDERED: MEPERIDINE HCL 25 MG/ML CARP/VIAL IV PRN (11:24)
[2021-09-22] MEDS ORDERED: LABETALOL HCL IV 5 MG/ML 20ML IV PRN (11:24)
[2021-09-22] MEDS ORDERED: DEXAMETHASONE SOD INJ 4 MG/ML VIAL ONE (12:10)
[2021-09-22] MEDS ORDERED: PROPOFOL IV EMULSION 10 MG/ML 20 ML VIAL IV ONE (12:10)
[2021-09-22] MEDS ORDERED: fentaNYL citrate 100 MCG/2 ML VIAL ONE (12:10)
[2021-09-22] MEDS ORDERED: LIDOCAINE 2% 2 ML VIAL/AMP(20MG/ML) INFIL ONE (12:10)
[2021-09-22] MEDS ORDERED: MIDAZOLAM HCL 1 MG/ML 2ML VIAL ONE ×2 (12:10→12:11)
[2021-09-22] MEDS ORDERED: ONDANSETRON INJ 2 MG/ML 2 ML VIAL ONE (12:10)
--- NOTE | 2021-09-22 14:10 | Operative Report ---
PG Post Operative Report Pre & Post Diagnosis Operation Date: 09/22/21 12:40 Pre-Op Diagnosis: Degenerative joint disease right knee. Post-Op Diagnosis: Degenerative joint disease right knee. I identified the patient and participated in the time-out.: Yes Procedure Operation Date: 09/22/21 12:40 Actual Procedures p Right Total Knee Arthroplasty(Right) - Mundo Martin DO Surgeon Mundo Martin DO [employer] Techn[employer] Mundo Vega PAC Estimated Blood Loss 20 Findings Consistent with Post-Op Diagnosis Specimens Right femoral and tibial bone Complications none Disposition Disposition: Recovery Room Indications Dakota is a pleasant 66-year-old male who is been doing with chronic increasing right knee pain. X-rays and clinical examination have been diagnostic for advanced arthritis of the right knee. After failing conservative treatment, he elected to proceed with a right total knee arthroplasty. Description of Procedure Implants used: I used a Saad Persona total knee arthroplasty system with a size 12 standard femur, G tibia, 31 oval patella, and a size 10 CPS polyethylene bearing. All components were cemented in place with Biomet cement. Dakota arrived [facility] for the above procedure. He was seen in the preoperative holding area and the operative extremity was identified and signed. He was given a preoperative antibiotic, TXA, a spinal anesthetic and an adductor nerve block. He was taken back to the operating room and laid on the table in supine position. He was given basic sedation. The operative knee was then prepped and draped in sterile fashion. A timeout was done, and the patient and the operative extremity was properly identified. A midline incision was made directly over the patella. Dissection was taken down to the extensor mechanism. A subvastus arthrotomy was used. The medial retinaculum was released and the fat pad was mostly excised. The knee was flexed and the ACL, PCL, and meniscus were removed. A drill was sent down the center of the femoral canal followed by an intramedullary remigio. Off that remigio a distal femoral cutting block was placed. 9 mm was resected off the distal femur at 5 of valgus. A posterior referencing AP sizing guide was then placed on the distal femur. The femur measured to be a size 12. 2 drill holes were placed in 3 of external rotation. A 4-in-1 cutting block was then impacted into place. Anterior, posterior, and chamfer cuts were then made. The proximal tibia was then exposed. An external tibial alignment guide was placed. A tibial cut guide was then anchored in place and the proximal tibia was then resected. The posterior aspect of the knee was then opened up and any additional meniscus fragments and osteophytes were removed. The tibia measured to be a size H. The tibial plate was then placed in the appropriate rotation and the tibia was drilled and punched. Trial components were then placed. I used a size 10 CPS polyethylene insert. The knee was brought through a full range of motion and felt to be stable. The peg holes for the femoral component were then drilled. The patella was then everted and 9 mm was resected off the posterior aspect of the patella. The patella measured to be a size 31 oval. 3 peg holes were then drilled. A trial patella was placed. The knee was once again brought through a full range of motion and felt to be stable. Trial components were then removed. The surrounding soft tissues were injected with 100 cc of an orthopedic pain control cocktail. All components were then cemented into place with Biomet cement. The final polyethylene insert was then snapped into place. Once cement was dry the tourniquet was deflated. Hemostasis was obtained. A dilute betadyne lavage was then done for 3 minutes. The joint was then irrigated with normal saline solution. The subvastus arthrotomy was then closed with #1 Vicryl suture. The skin was closed with 2-0 Vicryl, 3-0V lock suture, and chanda. A soft compressive dressing was placed. He was then transferred to a hospital bed and taken to the postanesthesia care unit in stable condition. He tolerated the procedure well. Mundo Vega PA-C, was present for the entire procedure. He was critical for patient positioning, prepping, draping, retraction exposure, wound closure and application of sterile dressing. I attest to the content of the Intraoperative Record and any orders documented therein. Any exceptions are noted below.
--- NOTE | 2021-09-22 14:52 | Anesthesiology Progress Note ---
Date of Service September 22, 2021 Anesthesia Post Procedure Vital Signs Vital Signs: Temp Pulse Pulse Resp BP Pulse Ox 09/22/21 14:49 36.3 C L 87 20 103/70 97 09/22/21 10:45 36.5 C 67 22 135/76 95 Transfer of Care Handoff Completed per policy Notes Mental Status: alert / awake / arousable Patient Amnestic to Procedure: Yes Nausea / Vomiting: adequately controlled Pain: adequately controlled Airway Patency, RR, SpO2: stable & adequate BP & HR: stable & adequate Hydration State: stable & adequate Neuraxial Anesthesia: was administered and sensory block is resolving Anesthetic Complications: no major complications apparent and Pt Satisfied with anesthetic care
--- NOTE | 2021-09-22 15:04 | XRay Report ---
TWO VIEWS RIGHT KNEE CLINICAL HISTORY: Postoperative examination. FINDINGS: AP and crosstable lateral portable views of the right knee are obtained. A right knee arthr oplasty is in near anatomic alignment. There has been undersurface remodeling of the patella. No acut e fracture is seen. There are expected postoperative changes around the knee including skin clips, so ft tissue edema, and subcutaneous gas. IMPRESSION: Expected postoperative changes status post right knee arthroplasty. No acute fracture is seen. ACT 112: Negative or not required by law. Electronically signed by: Josh Ley M.D. 09/22/2021 3:02 PM
[2021-09-22] MEDS ORDERED: METOCLOPRAMIDE HCL INJ 5 MG/ML 2 ML VIAL IV PRN (15:27)
[2021-09-22] MEDS ORDERED: MAGNESIUM HYDROXIDE SUSP 30 ML UDC PO PRN (15:27)
[2021-09-22] MEDS ORDERED: HYDROmorphone INJ 0.5 MG/0.5 ML SYR IV PRN (15:27)
[2021-09-22] MEDS ORDERED: NALOXONE HCL 0.4 MG/1 ML VIAL/CARP IV PRN (15:27)
[2021-09-22] MEDS ORDERED: oxyCODONE HCL IR 5 MG TAB (IMMEDIATE RELEASE) PO PRN (15:27)
[2021-09-22] MEDS ORDERED: FLUTICASONE PROPIONATE NA SPR 16 GM BTL PRN (15:27)
[2021-09-22] MEDS ORDERED: bisacodyL 10 MG SUPP PR PRN (15:27)
[2021-09-22] MEDS ORDERED: BETAMETHASONE DIP AUG (DIPROLENE) 0.05% CR 15 GM TUBE EXT PRN (15:37)
[2021-09-22] MEDS: SODIUM CHLORIDE 0.9% 1000ML 1,000 ML IV SCH (17:30)
[2021-09-22] MEDS: KETOROLAC 30 MG/ML VIAL IV SCH ×2 (18:48→23:24)
[2021-09-22] MEDS ORDERED: SENNA 8.6 MG TAB PO SCH (21:00)
[2021-09-22] MEDS ORDERED: ZOLPIDEM TARTRATE 10 MG TAB PO SCH (21:00)
[2021-09-22] MEDS: ceFAZolin 2000MG 2,000 MG/15 ML SYR IV SCH (21:35)
[2021-09-22] MEDS: ACETAMINOPHEN 500 MG TAB PO SCH (21:38)
[2021-09-22] MEDS: ASPIRIN 81 MG ECTAB PO SCH (21:39)
[2021-09-22] MEDS: DOCUSATE SODIUM 100 MG CAP PO SCH (21:39)
[2021-09-23] MEDS: SODIUM CHLORIDE 0.9% 1000ML 1,000 ML IV SCH (02:04)
[2021-09-23] MEDS: KETOROLAC 30 MG/ML VIAL IV SCH (05:51)
[2021-09-23] MEDS: ACETAMINOPHEN 500 MG TAB PO SCH (05:51)
[2021-09-23] MEDS: ceFAZolin 2000MG 2,000 MG/15 ML SYR IV SCH (05:52)
--- NOTE | 2021-09-23 07:31 | Orthopedic Progress Note ---
Date of Service September 23, 2021 Assessment & Plan (1) Status post right knee replacement: Overall is doing very well. Is not any much pain in the right knee. He will be seen by physical therapy today for ambulation and range of motion exercises. He is on aspirin for DVT prophylaxis. He can be discharged home later today. He will follow-up with orthopedics in 2 weeks. Jesus Duncan was seen and examined at bedside this morning. Overall is doing very well. He is not having much pain in the right knee. He had a little bit of difficulty urinating last night and needed straight cath. Otherwise he is doing well and has no complaints. Review of Systems All systems reviewed & are unremarkable except as noted in HPI & below. Physical Exam On physical examination of the right knee, the dressing is clean and dry. He has active dorsiflexion plantarflexion of his right ankle. Sensations intact throughout.. Results & Data Results & Data Laboratory Results . Diagnostic Findings Postoperative x-rays of the right knee show the prosthesis to be in anatomic alignment without any evidence of fracture, screws, or loosening. PG Care Time/CCT Total # of Minutes Spent Total Time Spent with Patient: Total time spent is greater than 50% in coordination of care (as documented) at patient's floor/unit and/or counseling patient: Coding Level of Care Code 76487 Post Operative Follow-Up Diagnoses Status post right knee replacement Z96.651
--- NOTE | 2021-09-23 07:32 | Discharge Summary ---
Date of Service September 23, 2021 Principal Diagnosis Same as "Discharge Diagnosis" noted below under Discharge Instructions. Discharge Exam On physical examination of the right knee, the dressing is clean and dry. He has active dorsiflexion plantarflexion of his right ankle. Sensations intact throughout.. Discharge Data Procedures Performed Operation Date: 09/22/21 12:40 Actual Procedures p Right Total Knee Arthroplasty(Right) - Mundo Martin DO Ordered Studies 09/22/21 05:00 US - OR guided needle placemen Routine Hospital Course (1) Status post right knee replacement: On September 22, 2021 Dakota arrived at [facility] and underwent a right knee replaced without complication. He had a spinal anesthetic. Postoperatively he was started on aspirin for DVT prophylaxis and transferred to the general orthopedic floors. His hospital course was uneventful. On postop day #1, his vital signs were stable and his pain was well controlled. He was able to participate well with physical therapy doing ambulation and range of motion exercises. He was then discharged home. He will follow-up with orthopedics in 2 weeks. PG Care Time/CCT Total # of Minutes Spent Total Time Spent with Patient: Total time spent is greater than 50% in coordination of care (as documented) at patient's floor/unit and/or counseling patient: Discharge Plan Discharge Items Patient Disposition: Home - Home Health Services Reason For Visit: DJD Right Knee Discharge Diagnosis: Right knee replacement Activity: Per Instructions section Non-emergency contact: Surgeon Call non-emergency contact if: your wound has increased redness and your wound has increased drainage Follow-up/Referrals: Pita Montes MD [Primary Care Provider] - Diet: Regular Addtl Attending Provider Instructions: Activity and Therapy Recommendations: * If you are using [facility] then therapy will be provided at your home until they feel you have accomplished all of your goals. * If you are using [facility] then Physical Therapy will be provided until they feel you are ready to start Outpatient Physical Therapy. * If you are not using home therapy then Outpatient Physical Therapy should start about 3-5 days from your day of surgery. Therapy will last about 6-10 weeks * It is important not to put a pillow under your knee when you are relaxing or sleeping. It is just as important to make sure you are getting your knee perfectly straight as it is to regain your knee bend. * You were shown a series of exercises in the hospital. Do these exercises three times each day including the exercises you were shown in physical therapy. * Get up and walk several times each day. For the first four weeks, try not to stand or walk for more than one hour at a time. If you do stand or walk for more than one hour, you will not hurt anything, but your leg will likely swell. * As you feel comfortable, you may change from the walker or crutches to a cane and then to independent walking. Medications: * Narcotic You will likely be sent home from the hospital with a prescription for the narcotic pain medication that worked best throughout your stay. * Aspirin Most patients will be required to take Aspirin 81mg twice a day for 6 weeks after surgery. This is obtained [id number] and a prescription is not necessary. * Other medications may be prescribed for specific circumstances. If you have any questions, please call the office at . * Resume previous home medications unless otherwise instructed TEDs/Elastic Stockings: The white elastic stockings help limit swelling and prevent blood clots from forming in your legs.~ The more you wear them, the more they work. Wear them for six weeks. Dressing Care: The dressing can be changed after physical therapy on postop day #1. Daily dry dressing changes for a few days, especially if the incision is still draining some. If the incision is not draining then you may leave the chanda open to air. If there is a little bit of drainage or if the chanda are getting stuck on your clothing then cover the incision with a dry dressing. The chanda will be removed at your 2 week follow-up appointment. Showering: You may shower 5 days from the day of surgery as long as the incision is no longer draining. You may shower with the cahnda exposed. Let soapy water run over the chanda and pat them dry. Do not scrub or soak the incision. Things To Watch For: * Drainage from the incision site that occurs more than one week after your surgery. * Increased redness at the incision site. * Fever above 102 degrees Fahrenheit. * Unusual chest pain or shortness of breath. * Call [facility] at with any of the above problems Follow-Up Visit: Follow-up with Dr. Martin's PA (Mundo Vega) 2-3 weeks after your day of surgery. He will remove your chanda and answer any questions. If you have any additional questions or concerns, Dr Martin is usually in the office at the same time and will be available An appointment was probably scheduled when you signed-up for surgery in the office. If you have any questions call Office Instructions: More detailed instructions as well as Frequently Asked Questions were provided in a folder by our office when you signed-up for surgery. Please review these instructions when you get home. If you have any further questions or concerns, please feel free to call the office at [phone] Pending Studies at Discharge: No Stand-Alone Forms: [facility] Medications and DC Order Prescriptions: New aspirin 81 mg Tablet,Delayed Release (Dr/Ec) 81 mg PO BID 42 Days Qty: 84 RF: 0 oxycodone 5 mg Tablet 5 mg PO Q4H PRN (Reason: pain) Qty: 40 RF: 0 Continued betamethasone dipropionate 0.05 % cream 1 applic TOP TID PRN (Reason: skin irritation) Qty: 45 RF: 11 furosemide 40 mg tablet 40 mg PO QAM RF: 0 allopurinol 300 mg Tablet 300 mg PO QAM RF: 0 omeprazole 20 mg Tablet,Delayed Release (Dr/Ec) 20 mg PO QAM RF: 0 fluticasone propionate [Flonase Allergy Relief] 50 mcg/actuation [place],Suspension 1 spray Intranasal DAILY PRN (Reason: Congestion) RF: 0 cyclobenzaprine 10 mg Tablet 10 mg PO TID PRN (Reason: Spasms) RF: 0 potassium gluconate 595 mg (99 mg) Tablet Extended Release 99 mg PO QAM RF: 0 zolpidem [Ambien] 10 mg tablet 10 mg PO HS RF: 0 finasteride 5 mg tablet 5 mg PO QAM RF: 0 phentermine [Adipex-P] 37.5 mg capsule 37.5 mg PO QAM RF: 0 multivitamin Tablet 1 tab PO QAM RF: 0 B-complex with vitamin C [Super B Complex-Vitamin C] Tablet 1 tab PO QAM RF: 0 diclofenac sodium 75 mg tablet,delayed release (DR/EC) 75 mg PO QAM RF: 0 docusate sodium [Stool Softener] 100 mg Capsule 100 mg PO QAM PRN (Reason: Constipation) RF: 0 tamsulosin 0.4 mg capsule 0.4 mg PO QAM RF: 0 diphenhydramine-acetaminophen [Tylenol PM Extra Strength] 25-500 mg Tablet 1 tab PO HS RF: 0 Discharge Orders: Discharge Order (Routine); Ordered 09/23/21 Ordered By: Mundo Martin Admission Data Admit Date/Time: 09/22/21 14:36 Attending Provider: Mundo Martin Admit Provider: Mundo Martin Primary Care Provider: Pita Montes
[2021-09-23] MEDS ORDERED: dexAMETHasone 4 MG TAB PO SCH (08:00)
[2021-09-23] MEDS: DOCUSATE SODIUM 100 MG CAP PO SCH (08:18)
[2021-09-23] MEDS: ASPIRIN 81 MG ECTAB PO SCH (08:18)
[2021-09-23] MEDS ORDERED: TAMSULOSIN HCL 0.4 MG CAP PO SCH (09:00)
[2021-09-23] MEDS ORDERED: PANTOprazole 40 MG TAB PO SCH (09:00)
[2021-09-23] MEDS ORDERED: allopurinoL 300 MG TAB PO SCH (09:00)
[2021-09-23] MEDS ORDERED: FINASTERIDE 5 MG TAB PO SCH (09:00)
[2021-09-23] MEDS ORDERED: MULTIVITAMIN TAB PO SCH (09:00)
[2021-09-23] MEDS ORDERED: FUROSEMIDE 40 MG TAB PO SCH (09:00)
[2021-09-23] MEDS ORDERED: NON-FORMULARY MEDICATION (Potassium Gluconate 595 mg (99 mg) Tablet Extended Release) PO SCH (09:00)
== END 2021-09-23 11:36 | disposition home health service (06) ==
LOC: ASU 09:52 → PACUINP 09:52 → 3N 17:34

== ENCOUNTER 2024-06-05 05:30 | Observation (INO) ==
--- NOTE | 2024-05-13 13:18 | PAT Medication Instructions ---
Medication Instructions Date of Service May 13, 2024 Home Medications Medication Instructions Recorded betamethasone dipropionate 0.05 % 1 applic topical TID PRN skin 03/04/19 topical cream irritation #45 grams allopurinol 300 mg tablet 300 mg PO QAM cyclobenzaprine 10 mg tablet 10 mg PO TID PRN fluticasone propionate 50 mcg/actuation nasal spray,suspension (Flonase Allergy Relief) 1 spray intranasal DAILY PRN omeprazole 20 mg tablet,delayed release 20 mg PO QAM furosemide 40 mg tablet 40 mg PO QAM betamethasone dipropionate 0.05 % topical cream 1 applic topical TID PRN B-complex with vitamin C (Super B Complex-Vitamin C tablet) 1 tab PO QAM diclofenac sodium 75 mg tablet,delayed release 75 mg PO QAM finasteride 5 mg tablet 5 mg PO QAM multivitamin 1 tab PO QAM phentermine 37.5 mg capsule (Adipex-P) 37.5 mg PO QAM zolpidem 10 mg tablet (Ambien) 10 mg PO HS potassium gluconate 595 mg (99 mg) tablet,extended release 99 mg PO QAM docusate sodium 100 mg capsule (Stool Softener) 100 mg PO QAM PRN tamsulosin 0.4 mg capsule 0.4 mg PO QAM diphenhydramine 25 mg-acetaminophen 500 mg tablet (Tylenol PM Extra Strength) 1 tab PO HS STOP 5 days before surgery phentermine 37.5 mg capsule (Adipex-P) 37.5 mg PO QAM Continue as directed fluticasone propionate 50 mcg/actuation nasal spray,suspension (Flonase Allergy Relief) 1 spray intranasal DAILY PRN(if needed) ASK your surgeon for instructions diclofenac sodium 75 mg tablet,delayed release 75 mg PO QAM STOP taking 24 hours before surgery betamethasone dipropionate 0.05 % topical cream 1 applic topical TID PRN DO NOT take the morning of surgery furosemide 40 mg tablet 40 mg PO QAM B-complex with vitamin C (Super B Complex-Vitamin C tablet) 1 tab PO QAM multivitamin 1 tab PO QAM potassium gluconate 595 mg (99 mg) tablet,extended release 99 mg PO QAM docusate sodium 100 mg capsule (Stool Softener) 100 mg PO QAM PRN Take morning of surgery With a small sip of water, OTHERWISE NOTHING TO EAT OR DRINK AFTER MIDNIGHT: allopurinol 300 mg tablet 300 mg PO QAM cyclobenzaprine 10 mg tablet 10 mg PO TID PRN(if needed) omeprazole 20 mg tablet,delayed release 20 mg PO QAM finasteride 5 mg tablet 5 mg PO QAM tamsulosin 0.4 mg capsule 0.4 mg PO QAM Take evening before surgery cyclobenzaprine 10 mg tablet 10 mg PO TID PRN(if needed) zolpidem 10 mg tablet (Ambien) 10 mg PO HS diphenhydramine 25 mg-acetaminophen 500 mg tablet (Tylenol PM Extra Strength) 1 tab PO HS Other Notes If you have any questions please call us at [phone] or [phone] or [phone] or [phone]
--- NOTE | 2024-05-20 11:11 | Anesthesiology Consultation ---
Date of Service May 20, 2024 Assessment & Plan (1) Encounter for pre-operative examination: Chart Review Chart Review: Acceptable Risk for Surgery (pending cardio clearance 05/28/24) and Patient seen in Pre Admission Testing - Awaiting cardio clearance ([place]) 05/28/24- (referred by PCP for fourth heart sound) - Patient is NOT an ideal OPJ candidate (currently 23 hour obs) Per PAT appt on 05/20/24, no recent illness/disease exposures, illness related symptoms, or recent illness/disease positive tests. Will leave to surgeon's discretion if preop Covid testing needed Teaching & Discussion Pre-Anesthesia Teaching/Discussion Notes: Instructed NPO after midnight before surgery,except medications with 15 cc of water. Medication instructions provided according to the PAT guidelines. History Surgery Operation Date: 06/05/24 09:00 Proposed Procedures p Right Anterior Total Hip Arthroplasty - Mundo Martin DO Height/Weight Height: 6 ft 2 in Weight: 148.2 kg Allergies Allergy/AdvReac Type Severity Reaction Status Date / Time cephalexin AdvReac Mild "doesn't Verified 05/06/24 09:22 work" per patient Medications Home Medications Medication Instructions Recorded Confirmed Last Taken allopurinol 300 mg tablet 300 mg PO QAM 01/18/18 05/06/24 09/22/21 07:30 cyclobenzaprine 10 mg tablet 10 mg PO TID PRN Spasms 01/18/18 05/06/24 Unknown fluticasone propionate 50 1 spray intranasal DAILY PRN 01/18/18 05/06/24 06/0 06/13 05:00 mcg/actuation nasal Congestion spray,suspension (Flonase Allergy Relief) omeprazole 20 mg tablet,delayed 20 mg PO QAM 01/18/18 05/06/24 09/22/21 07:30 release furosemide 40 mg tablet 40 mg PO QAM 03/25/18 05/06/24 09/21/21 05:00 betamethasone dipropionate 0.05 % 1 applic topical TID PRN skin 03/04/19 05/06/24 Unknown topical cream irritation #45 grams B-complex with vitamin C (Super B 1 tab PO QAM 05/10/19 05/06/24 09/21/21 05:00 Complex-Vitamin C tablet) diclofenac sodium 75 mg 75 mg PO QAM 05/10/19 05/06/24 08/25/21 05:00 tablet,delayed release finasteride 5 mg tablet 5 mg PO QAM 05/10/19 05/06/24 09/21/21 05:00 multivitamin 1 tab PO QAM 05/10/19 05/06/24 09/21/21 05:00 phentermine 37.5 mg capsule 37.5 mg PO QAM 05/10/19 05/06/24 09/21/21 05:00 (Adipex-P) zolpidem 10 mg tablet (Ambien) 10 mg PO HS 05/10/19 05/06/24 09/21/21 22:00 potassium gluconate 595 mg (99 mg) 99 mg PO QAM 05/26/19 05/06/24 09/21/21 05:00 tablet,extended release docusate sodium 100 mg capsule 100 mg PO QAM PRN Constipation 09/09/19 05/06/24 06/23/20 (Stool Softener) tamsulosin 0.4 mg capsule 0.4 mg PO QAM 09/09/19 05/06/24 09/22/21 07:30 diphenhydramine 25 1 tab PO HS 08/25/21 05/06/24 09/21/21 22:00 mg-acetaminophen 500 mg tablet (Tylenol PM Extra Strength) Past Medical History Medical History Chronic acquired lymphedema RLE (Hx cellulitis ~2017) - no current cellulitis issues Chronic back pain Chronic edema CKD (chronic kidney disease) stage 3, GFR 30-59 ml/min Baseline creatinine 1.4-1.8 per chart review-F/U PCP GERD (gastroesophageal reflux disease) well controlled and stable Heart palpitations Hx tachycardia and palpitations, hx loop recorder with removal in 2022. followed with [facility] [place] [facility]. unsure of findings. No issues x months History of sleep apnea Hx ("resolved" s/p gastric bypass but not formally tested) Hx of gout no recent issues Hx of recurrent urinary tract infection follows with [facility] - denies any recent issues Hypertension History of - improved with weight loss- no BP medications currently per patient Morbid obesity Osteoarthritis Exercise / Class Metabolic Activity III < 4 Walking/Shop/Light housework (no chest pain or SOB with flat surface ambulation- uses cane for support ) Past Family History Family History Mother Family history of diabetes mellitus Other No family history of adverse response to anesthesia Past Surgical History Surgical History Fusion of spine (11/08/17) ACDF C5/C6 & C6/C7 ([facility] with Dr. De La Cruz) History of cholecystectomy History of colonoscopy History of loop recorder placed in 2018, removed in 2022 at [facility] History of right knee joint replacement (09/22/21) Dr Martin History of total left knee replacement 04/2018 Hx of gastric bypass ~2004 S/P bilateral cataract extraction Status post reverse arthroplasty of left shoulder Status post reverse arthroplasty of right shoulder Right reverse TSA: 09/15/19: LMA#5, atraumatic attempt x1 + PNB at [facility] Past Anesthesia History No Hx of Anesthesia Complications and No Family Hx of Anesthesia Complications History of PONV No Hx of PONV and No Hx of Motion Sickness Social History Smoking Status: Never smoker tobacco type: smokeless tobacco Do You Dip or Chew Tobacco: Yes (1 can/4 days (advised on npo policy)) Hx Alcohol Use: Yes Alcohol type: beer alcohol intake frequency: holidays/special occasions only Hx Substance Use: No substance use type: does not use Review of Systems - Occ wheezing - chronic and stable- usually at night (mild) Patient denies chest pain, shortness of breath, dyspnea on exertion, cough, palpitations No hx of seizures, stroke, DC. No hx of blood clots or blood transfusions Physical Exam Vital Signs VITALS BP 123/79 P 80 TEMP 97.7 SP02 94% RESP 16 Constitutional no acute distress ENMT Mouth: no TMJ clicking Thyromental Distance: > or= 3.5 Finger Breadths (3.5) Mallampati Class: II Missing most side teeth and molars Neck + limited neck extension (mild) and + facial hair (advised to shave or trim ) Respiratory normal respiratory effort; no respiratory distress Auscultation: lungs clear to auscultation bilaterally and + diminished lung sounds (mildly throughout); no wheezes Cardiovascular Rate/Rhythm: regular rate and regular rhythm Heart Sounds: no murmur Vessels: no carotid bruit Musculoskeletal Spine: no pain with cervical ROM Extremities: extremities normal to inspection Psychiatric Orientation: alert Lab Results Anesthesia Preop Results Results Anesthesia Widget: WBC 5.10 K/ul (4.8-10.8) 05/20/24 Hgb 15.1 g/dl (14.0-18.0) 05/20/24 Hct 45.6 % (42.0-52.0) 05/20/24 Plt 171 K/uL (130-400) 05/20/24 Na 139 mmol/L (136-145) 05/20/24 K 3.9 mmol/L (3.5-5.1) 05/20/24 Cl 107 mmol/L (98-107) 05/20/24 CO2 26 mmol/L (21-32) 05/20/24 BUN 32 mg/dl (6-23) H 05/20/24 Creat 1.48 mg/dl (0.6-1.4) H 05/20/24 Glucose Level 101 mg/dl (70-99(Fasting)) H 05/20/24 PT 10.9 Seconds (9.0-12.0) 05/20/24 PTT 27 Seconds (21-31) 05/20/24 INR 1.0 (0.9-1.1) 05/20/24 Blood Type A Positive 05/20/24 Antibody Screen NEGATIVE 05/20/24 Testing Laboratory Results Elevated creatinine- chronic and stable Electrocardiogram Date: 05/20/24 Findings: + NSR @ (72bpm) RBBB When compared to EKG from August 29, 2021- PACs are no longer present per cardio Chest X-Ray Date: 05/20/24 FINDINGS: Heart size and pulmonary vasculature are normal. There is interval mild stranding at the right lung base. There is mild elevation of the right hemidiaphragm. No other consolidation or pleural effusion. No pneumothorax. IMPRESSION: Atelectasis versus early pneumonia right lung base. (Patient seen in PAT at time of CXR- lungs CTA. Reconfirmed with patient on 05/21/24- he is having no fever, chills, cough, or fatigue; patient will call if any symptoms occur- can presume atelectasis; discussed with Dr. Baldwin- patient can proceed as scheduled) Stress Test Date: 07/16/18 Type: DSE Resting EF: 60% Valvular Disease: no significant valvular disease Normal dobutamine echocardiogram without evidence of inducible ischemia. LV is normal size and systolic function. Moderate concentric LVH. No evidence of wall motion abnormalities present.
[2024-06-05] MEDS: LR 60ML/HR IV SCH (06:15)
[2024-06-05] MEDS: LR 500ML BOLUS, THEN 15ML/HR IV SCH (06:15)
[2024-06-05] MEDS: ACETAMINOPHEN 500 MG TAB PO SCH ×2 (06:16→14:03)
[2024-06-05] MEDS: GABAPENTIN 300 MG CAP PO SCH (06:16)
[2024-06-05] MEDS: FAMOTIDINE 20 MG TAB PO SCH (06:16)
[2024-06-05] MEDS: dexAMETHasone**PF** 10 MG/ML VIAL IV SCH (06:16)
[2024-06-05] MEDS ORDERED: fentaNYL citrate PF 100 MCG/2 ML VIAL ONE (06:23)
[2024-06-05] MEDS ORDERED: LIDOCAINE 2% 2 ML VIAL/AMP(20MG/ML) INFIL ONE (06:23)
[2024-06-05] MEDS ORDERED: MIDAZOLAM HCL 1 MG/ML 2ML VIAL ONE (06:23)
[2024-06-05] MEDS ORDERED: BUPIVACAINE 0.5 % 5 MG/1 ML PF 10ML VIAL ONE (06:24)
[2024-06-05] MEDS ORDERED: ONDANSETRON INJ 2 MG/ML 2 ML VIAL ONE (06:24)
[2024-06-05] MEDS ORDERED: PROPOFOL IV EMULSION 10 MG/ML 20 ML VIAL IV ONE (06:24)
[2024-06-05] MEDS ORDERED: ONDANSETRON INJ 2 MG/ML 2 ML VIAL IV PRN ×2 (06:32→12:25)
[2024-06-05] MEDS ORDERED: fentaNYL citrate PF 100 MCG/2 ML VIAL IV PRN (06:32)
[2024-06-05] MEDS ORDERED: PROMETHAZINE HCL 6.25 MG in SODIUM CHLORIDE 0.9% 50 ML IV PRN (06:32)
[2024-06-05] MEDS ORDERED: ePHEDrine sulfate 50 MG/ML AMP IV PRN (06:32)
[2024-06-05] MEDS ORDERED: ATROPINE SULFATE 0.1 MG/ML 10ML SYR IV PRN (06:32)
--- NOTE | 2024-06-05 06:44 | History & Physical Bridge Note ---
Date of Service June 05, 2024 History & Physical Bridge Note I have examined the patient, reviewed the History & Physical and in the interval since the performance of the History & Physical I have noted the following changes of clinical significance: no changes noted
[2024-06-05] MEDS: TRANEXAMIC ACID 1,000 MG **IV Pre-op IV SCH (06:50)
[2024-06-05] MEDS: ceFAZolin 3000MG 3,000 MG/72.5 ML BAG IV SCH (07:00)
[2024-06-05] MEDS ORDERED: ePHEDrine sulfate 50 MG/5 ML SYR ONE (07:16)
[2024-06-05] MEDS ORDERED: PHENYLEPHRINE 100MCG/ML 5ML SYR ONE (07:17)
[2024-06-05] MEDS: ORTHO JOINT ANESTHETIC ONE (07:37)
[2024-06-05] MEDS ORDERED: PHENYLEPHRINE HCL 10 MG/ML VIAL ONE (07:38)
[2024-06-05] MEDS: TRANEXAMIC ACID 1,000 MG **IV Intra-op IV SCH (08:40)
[2024-06-05] MEDS: ROPIV 0.5% 246mg, Ketorolac 30mg, EPINEPHrine 0.5mg in NSS INFIL SCH (08:44)
--- NOTE | 2024-06-05 08:46 | Operative Report ---
PG Post Operative Report Pre & Post Diagnosis Operation Date: 06/05/24 07:00 Pre-Op Diagnosis: Right Hip Arthritis Post-Op Diagnosis: Right Hip Arthritis I identified the patient and participated in the time-out.: Yes Procedure Operation Date: 06/05/24 07:00 Actual Procedures p Right Anterior Total Hip Arthroplasty(Right) - Mundo Martin DO Surgeon Mundo Martin DO Claim Analyst Wesley Kimble PA-C Estimated Blood Loss 300 Findings Consistent with Post-Op Diagnosis Specimens Right femoral head Description of Procedure Implants used I used a [employer]immer[employer] total hip arthroplasty system with a size 11 cemented echo stem, a 52 mm G7 cup with a 25mm screw, an E1 polyethylene liner, a 36 mm ceramic head with a +3 neck. Dakota arrived at the hospital for the above procedure. He was seen in the preoperative holding area and the operative extremity was identified and signed. He was given a spinal anesthetic, a preoperative antibiotic, and TXA. He was then taken back to the operating room and laid on the table in the supine position. He was given basic sedation. He was still moving a lot with a basic sedation so we decided to do a general anesthesia. The operative leg was secured to a Puristst leg positioner. The hip was then prepped and draped in sterile fashion. A timeout was done and the patient and the operative extremity was properly identified. An anterior approach was used. Dissection was taken down through the fascia and the tensor muscle belly was retracted laterally and the rectus was retracted medially. The circumflex vessels were identified and ligated. The capsule was then incised and tagged for later repair. The femoral neck was then cut and the femoral head was removed. The acetabulum was exposed. Time was spent doing a complete circumferential labral release. Sequential reaming of the acetabulum up to a size 51 reamer was done. Final reamings were done under fluoroscopy to ensure appropriate version. A Biomet 52 mm G7 cup was then impacted into place. A single 25 mm screw was placed. The E1 polyethylene liner was then snapped into place. Surrounding soft tissues were then injected with 100 cc of an orthopedic pain control cocktail. The proximal femur was then exposed. Sequential broaching up to a size 13 broach was done. Off that broach a size 36 head with a +3 neck was trialed. The hip was reduced and fluoroscopic images showed anatomic alignment of the implants in acceptable length. The broach was removed. The final size 11 cemented echo stem was then cemented into place. A ceramic 36 mm head with a +3 neck was then impacted onto the stem and the hip was reduced. Final fluoroscopic images showed anatomic alignment of the hip. The capsule was then closed with #1 Vicryl suture. A dilute betadyne lavage was then done for 3 minutes. The joint was then irrigated with normal saline solution. The fascia was closed with #1 PDS suture. Skin was closed with 2-0 Vicryl, chanda, and a Silverlon dressing. He was then transferred to a hospital bed and taken to the post anesthesia care unit in stable condition. He tolerated the procedure well. Wesley Kimble PA-C, was present for the entire procedure. He was critical for patient positioning, prepping, draping, retraction exposure, wound closure and application of sterile dressing. I attest to the content of the Intraoperative Record and any orders documented therein. Any exceptions are noted below.
--- NOTE | 2024-06-05 10:16 | XRay Report ---
XR hip 1V RT w pelvis CLINICAL HISTORY: Postoperative evaluation. COMPARISON: Right hip radiographs May 20, 2024. FINDINGS: Alignment of the total right hip arthroplasty is anatomic. There is no periprosthetic frac ture or unexpected radiopaque foreign body. There are skin chanda. IMPRESSION: Expected findings following total right hip arthroplasty. ACT 112: Negative or not required by law. Electronically signed by: Dakota Brito M.D. 06/05/2024 10:15 AM
[2024-06-05] MEDS ORDERED: NALOXONE HCL 0.4 MG/1 ML VIAL/CARP IV PRN (12:25)
[2024-06-05] MEDS ORDERED: bisacodyL 10 MG SUPP PR PRN (12:25)
[2024-06-05] MEDS ORDERED: CYCLOBENZAPRINE HCL 10 MG TAB PO PRN (12:25)
[2024-06-05] MEDS ORDERED: METOCLOPRAMIDE HCL INJ 5 MG/ML 2 ML VIAL IV PRN (12:25)
[2024-06-05] MEDS ORDERED: MAGNESIUM HYDROXIDE SUSP 30 ML UDC PO PRN (12:25)
[2024-06-05] MEDS ORDERED: oxyCODONE HCL IR 5 MG TAB (IMMEDIATE RELEASE) PO PRN (12:25)
[2024-06-05] MEDS ORDERED: HYDROmorphone INJ 0.5 MG/0.5 ML SYR IV PRN (12:25)
--- NOTE | 2024-06-05 13:17 | Fluoroscopy Report ---
FL hip RT 1V CLINICAL HISTORY: RIGHT ANTERIOR HIPright hip arthroplasty COMPARISON STUDY: None FLUOROSCOPY TIME: 18.8 seconds FLUOROSCOPY IMAGES: 1 EXPOSURE DOSE: 3.76 mGy FINDINGS: Right hip arthroplasty demonstrates satisfactory alignment. Expected postoperative soft tis jorge swelling with deep tissue air. IMPRESSION: Satisfactory alignment of the right hip arthroplasty. ACT 112: Negative or not required by law. Electronically signed by: Donn Ramirez M.D. 06/05/2024 1:15 PM
[2024-06-05] MEDS: KETOROLAC TROMETHAMINE 15 MG/ML VIAL IV SCH (14:03)
--- NOTE | 2024-06-05 14:50 | Anesthesiology Progress Note ---
Date of Service June 05, 2024 Anesthesia Post Procedure Vital Signs Vital Signs: Temp Pulse Pulse Resp BP Pulse Ox O2 Del Method 06/05/24 13:55 36.5 C 84 18 158/90 H 97 Room Air 06/05/24 13:00 82 17 134/81 94 Room Air 06/05/24 12:25 36.3 C L 76 18 130/84 95 Room Air 06/05/24 12:00 83 17 137/91 92 Room Air 06/05/24 11:40 80 21 126/72 92 Room Air 06/05/24 11:25 80 24 127/92 92 Room Air 06/05/24 11:10 82 24 126/72 94 Room Air 06/05/24 10:55 81 18 112/70 97 Room Air 06/05/24 10:40 36.4 C L 78 18 113/71 97 Room Air 06/05/24 10:30 77 21 120/74 95 Room Air 06/05/24 10:20 76 20 104/80 94 Room Air 06/05/24 10:10 76 15 127/76 95 Room Air 06/05/24 10:00 76 22 122/80 94 Room Air 06/05/24 09:50 78 23 118/85 94 Room Air 06/05/24 09:40 36.4 C L 75 21 125/79 97 Oxymask 06/05/24 09:30 77 22 134/81 98 Oxymask 06/05/24 09:23 36.7 C 80 21 121/79 97 Oxymask 06/05/24 06:00 36.6 C 75 20 133/84 94 Room Air O2 Flow Rate 06/05/24 13:55 06/05/24 13:00 06/05/24 12:25 06/05/24 12:00 06/05/24 11:40 06/05/24 11:25 06/05/24 11:10 06/05/24 10:55 06/05/24 10:40 06/05/24 10:30 06/05/24 10:20 06/05/24 10:10 06/05/24 10:00 06/05/24 09:50 06/05/24 09:40 5 06/05/24 09:30 5 06/05/24 09:23 5 06/05/24 06:00 Pain Intensity Right Hip: Pain Intensity: 4 Transfer of Care Handoff Completed per policy Notes Mental Status: alert / awake / arousable Patient Amnestic to Procedure: Yes Nausea / Vomiting: adequately controlled Pain: adequately controlled Airway Patency, RR, SpO2: stable & adequate BP & HR: stable & adequate Hydration State: stable & adequate Neuraxial Anesthesia: was administered and sensory block is resolving Anesthetic Complications: no major complications apparent and Pt Satisfied with anesthetic care
[2024-06-05] MEDS ORDERED: ceFAZolin 1000MG 1,000 MG/7.5 ML SYR IV SCH (15:00)
[2024-06-05] MEDS: ceFAZolin 2000MG 2,000 MG/15 ML SYR IV SCH (18:37)
[2024-06-05] MEDS: SODIUM CHLORIDE 0.65% NA SOLN 45 ML (OCEAN) ONE (18:42)
[2024-06-05] MEDS: ZOLPIDEM TARTRATE 5 MG TAB PO SCH (20:40)
[2024-06-05] MEDS: SENNA 8.6 MG TAB PO SCH (20:40)
[2024-06-05] MEDS: DOCUSATE SODIUM 100 MG CAP PO SCH (20:41)
[2024-06-05] MEDS: ASPIRIN 81 MG ECTAB PO SCH (20:41)
--- NOTE | 2024-06-06 07:44 | Orthopedic Progress Note ---
Date of Service June 06, 2024 Assessment & Plan (1) Status post right hip replacement: Overall he is doing very well. He is not having much pain in the right hip. He will be seen by physical therapy today for ambulation and range of motion exercises. He is on aspirin for DVT prophylaxis. He has a Prevena VAC dressing. He can be discharged to home later today. He will follow-up with orthopedics in 2 weeks. Jesus Duncan was seen and examined at bedside this morning. Overall is doing very well. He is not having much pain in the right hip. He has been up ambulating to the bathroom. He has no complaints.. Review of Systems All systems reviewed & are unremarkable except as noted in HPI & below. Physical Exam On physical exam of the right hip, the dressing is clean and dry. His leg is out full extension. He has active dorsiflexion plantarflexion of his right ankle.. Results & Data Results & Data Laboratory Results . Diagnostic Findings Postoperative x-rays of the right hip show the prosthesis to be in anatomic alignment without any evidence of fracture, dislocation, or loosening.. PG Care Time/CCT Total # of Minutes Spent Total Time Spent with Patient: Total time spent is greater than 50% in coordination of care (as documented) at patient's floor/unit and/or counseling patient: Coding Level of Care Code 46905 Post Operative Follow-Up Diagnoses Status post right hip replacement Z96.641
--- NOTE | 2024-06-06 07:49 | Discharge Summary ---
Date of Service June 06, 2024 Principal Diagnosis Same as "Discharge Diagnosis" noted below under Discharge Instructions. Discharge Exam On physical exam of the right hip, the dressing is clean and dry. His leg is out full extension. He has active dorsiflexion plantarflexion of his right ankle.. Discharge Data Procedures Performed Operation Date: 06/05/24 07:00 Actual Procedures p Right Anterior Total Hip Arthroplasty(Right) - Mundo Martin DO Ordered Studies 06/05/24 07:00 FL hip RT 1V Routine Hospital Course (1) Status post right hip replacement: On June 05, 1999 [id number] Arrived at [facility] and underwent a right hip replacement without complication. He had a spinal anesthetic that was converted to a general. Postoperatively he was started on aspirin for DVT prophylaxis and transferred to the general orthopedic floors. His hospital course was uneventful. On postop day 1, his vital signs were stable and his pain was well-controlled. He was able to participate well with physical therapy doing ambulation and range of motion exercises. He was then discharged to home. He will follow-up with orthopedics in 2 weeks. PG Care Time/CCT Total # of Minutes Spent Total Time Spent with Patient: Total time spent is greater than 50% in coordination of care (as documented) at patient's floor/unit and/or counseling patient: Discharge Plan Discharge Items Patient Disposition: Home - Self-Care Reason For Visit: Right Hip Arthritis Discharge Diagnosis: Right hip replacement Activity: Per Instructions section Non-emergency contact: Surgeon Call non-emergency contact if: your wound has increased redness and your wound has increased drainage Follow-up/Referrals: Pita Montes MD [Primary Care Provider] - Diet: Regular Addtl Attending Provider Instructions: Activity and Therapy Recommendations: * If you are using [facility] then therapy will be provided at your home until they feel you have accomplished all of your goals. * If you are using [facility] then Physical Therapy will be provided until they feel you are ready to start Outpatient Physical Therapy. * If you are not using home therapy then Outpatient Physical Therapy should start about 3-5 days from your day of surgery. Therapy will last about 6-10 weeks * You were shown a series of exercises in the hospital. Do these exercises three times each day including the exercises you were shown in physical therapy. * Get up and walk several times each day.~ For the first four weeks, try not to stand or walk for more than one hour at a time. If you do stand or walk for more than one hour, you will not hurt anything, but your leg will likely swell.~~ * As you feel comfortable, you may change from the walker or crutches to a cane and~then to independent walking. Medications: * Narcotic You will likely be sent home from the hospital with a prescription for the narcotic pain medication that worked best throughout your stay. * Cefadroxil -take the antibiotic twice a day for 10 days to help prevent infection. * Aspirin Most patients will be required to take Aspirin 81mg twice a day for 6 weeks after surgery. This is obtained [id number] and a prescription is not necessary. * Other medications may be prescribed for specific circumstances. If you have any questions, please call the office at . * Resume previous home medications unless otherwise instructed TEDs/Elastic Stockings: The white elastic stockings help limit swelling and prevent blood clots from forming in your legs. The more you wear them, the more they work. Wear them for six weeks. Dressing Care: Leave the Prevena VAC dressing in place for 7 days. After 7 days you may remove the dressing. If the incision is not draining then you may leave the chanda open to air. If there is a little bit of drainage or if the chanda are getting stuck on your clothing then cover the incision with a dry dressing. The chanda will be removed at your 2 week follow-up appointment. Showering: You may shower with the Prevena VAC dressing in place. Do not let the shower spray hit the dressing directly. Pat the Prevena VAC dressing dry. If the dressing becomes wet underneath, then simply remove the dressing. Keep the incision dry until you are 7 days out from the day of surgery. After 7 days you may remove the Silverlon dressing and shower with the chanda exposed. Let soapy water run over the chanda and pat them dry. Do not scrub or soak the incision. Diet: You may resume your previous diet. Things To Watch For: * Drainage from the incision site that occurs more than one week after your surgery. * Increased redness at the incision site. * Fever above 102 degrees Fahrenheit. * Unusual chest pain or shortness of breath. * Call [facility] at with any of the above problems Follow-Up Visit: Follow-up with Dr. Martin's office 2-3 weeks after your day of surgery. We will remove your chanda and answer any questions. If you have any additional questions or concerns, Dr Martin is usually in the office at the same time and will be available An appointment was probably scheduled when you signed-up for surgery in the office. If you have any questions call Office Instructions: More detailed instructions as well as Frequently Asked Questions were provided in a folder by our office when you signed-up for surgery. Please review these instructions when you get home. If you have any further questions or concerns, please feel free to call the office at [phone] Pending Studies at Discharge: No Stand-Alone Forms: My [facility] [employer], Smoking Cessation Medications and DC Order Prescriptions: New cefadroxil 500 mg capsule 500 mg PO BID 10 Days Qty: 20 0RF oxycodone 5 mg tablet 5 mg PO Q6H PRN (Reason: pain) Qty: 30 0RF aspirin 81 mg Tablet,Delayed Release (Dr/Ec) 81 mg PO BID 42 Days Qty: 84 0RF Continued betamethasone dipropionate 0.05 % cream 1 applic TOP TID PRN (Reason: skin irritation) Qty: 45 11RF furosemide 40 mg tablet 40 mg PO QAM allopurinol 300 mg Tablet 300 mg PO QAM omeprazole 20 mg Tablet,Delayed Release (Dr/Ec) 20 mg PO QAM fluticasone propionate [Flonase Allergy Relief] 50 mcg/actuation [place], Suspension 1 spray Intranasal DAILY PRN (Reason: Congestion) cyclobenzaprine 10 mg Tablet 10 mg PO TID PRN (Reason: Spasms) potassium gluconate 595 mg (99 mg) Tablet Extended Release 99 mg PO QAM zolpidem [Ambien] 10 mg tablet 10 mg PO HS finasteride 5 mg tablet 5 mg PO QAM phentermine [Adipex-P] 37.5 mg capsule 37.5 mg PO QAM multivitamin Tablet 1 tab PO QAM B-complex with vitamin C [Super B Complex-Vitamin C] Tablet 1 tab PO QAM diclofenac sodium 75 mg tablet,delayed release (DR/EC) 75 mg PO QAM docusate sodium [Stool Softener] 100 mg Capsule 100 mg PO QAM PRN (Reason: Constipation) tamsulosin 0.4 mg capsule 0.4 mg PO QAM diphenhydramine-acetaminophen [Tylenol PM Extra Strength] 25-500 mg Tablet 1 tab PO HS Discharge Orders: Discharge Order (Routine); Ordered 06/06/24 Ordered By: Mundo Martin Admission Data Admit Date/Time: 06/05/24 09:26 Attending Provider: Mundo Martin Admit Provider: Mundo Martin Primary Care Provider: Pita Montes Other Providers: [facility]
[2024-06-06 08:02] VITALS: BP 133/72; PULSE 74; RESP 16; TEMP 97.3; O2SAT 95
[2024-06-06] MEDS: dexAMETHasone 4 MG TAB PO SCH (08:05)
[2024-06-06] MEDS: allopurinoL 300 MG TAB PO SCH (08:06)
[2024-06-06] MEDS: FUROSEMIDE 40 MG TAB PO SCH (08:06)
[2024-06-06] MEDS: PANTOprazole 40 MG TAB PO SCH (08:06)
[2024-06-06] MEDS: MULTIVITAMIN TAB PO SCH (08:06)
[2024-06-06] MEDS: FINASTERIDE 5 MG TAB PO SCH (08:07)
[2024-06-06] MEDS: TAMSULOSIN HCL 0.4 MG CAP PO SCH (08:07)
== END 2024-06-06 11:11 | disposition home or self-care (01) ==
LOC: ASU 05:30 → PACUINP 05:30 → 3W 12:38

== ENCOUNTER 2024-12-21 18:45 | Observation (INO) ==
[2024-12-21 18:53] VITALS: TEMP 98.2
--- NOTE | 2024-12-21 19:02 | Emergency Department Note ---
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, Infection of prosthetic total hip joint ED Provider Note NAME: MG NAVARRETE AGE: 69 SEX: M : 1955 ARRIVES VIA: Walk-In INFORMANT: Patient ED PROVIDER(S): Ethan Hayes MD CHIEF COMPLAINT: Right hip pain, history of hip infection PLAN: Disposition: Admit MEDICAL DECISION MAKING: The patient is a pleasant 69-year-old gentleman with a complicated past medical history of gastric bypass, GERD, CKD, bilateral TKA and right hip ROSENDO in May of this year complicated by surgical site infection ultimately requiring OR in August of this year for right hip incision and drainage and revision of femoral stem where intraoperative cultures grew methicillin resistant Staph epidermidis who presents to the emergency department via walk-in accompanied by his for evaluation of worsening right hip pain over the past several days where it has reached a point where he is unable to bear weight at all and is reminiscent of when he had infection of his hip and required surgical treatment. The patient reports that he was initially on IV antibiotics following his admission in August and the plan was to transition immediately to oral antibiotics per his infectious disease provider however he reports that there was complication with his insurance who initially denied the request and an appeal for authorization needed to be made and therefore there was a lapse in antibiotic treatment for approximately a month. Patient reports that he recently started his oral antibiotic 2 days ago. He reports he does not recall the name of the antibiotic that he is taking. He denies any fevers, chills, cough, congestion, GI or symptoms. The patient reports the pain in his hip is most severe when he bears weight directly. He is able to range the hip. On evaluation the patient is no acute distress, afebrile stable vital signs. Right hip demonstrates no edema, erythema, warmth, induration or crepitus. No overt areas of fluctuance. Patient has full range of motion without difficulty. He does exhibit pain when axial pressure is applied on the foot. Patient was offered analgesia however reports no significant pain when at rest only with ambulation and declines analgesia at this time. WBC in place within the limits. H/H 12.3/9.6 improved from prior values. ESR is mildly of at 24 and CRP mildly elevated at 1.2, nonspecific. Chemistry without metabolic acidosis. Creatinine 1.9, slightly increased from prior values. CT of the right hip was performed and demonstrates description of a "chronic seroma along the incision plane measuring 4.7 x 1.4 cm" however comparison is to a preoperative CT from August and so findings may represent reaccumulation of a seroma where sterility is unclear but given the patient's history of infection in setting of his inability to walk, the patient agrees with plan for admission for IV antibiotics and orthopedic consultation. Blood cultures were obtained and empiric treatment initiated with IV daptomycin per ID recommendations during the patient's last hospitalization. Case was discussed with Dr. [place] [facility] hospitalist, who will evaluate the patient for admission. Further management per admitting team. Triage Nursing notes reviewed and agree them. Prior/external medical records reviewed Vital Signs: reviewed Differential diagnosis: Cellulitis, abscess, MRSA infection, DVT, necrotizing fasciitis, dermatitis, drug eruption, allergic reaction, as well as other pathologies. ER treatment provided: See below. Diagnostics interpreted by me: ECG: Normal sinus rhythm, sinus arrhythmia, 74 bpm, no ectopy, right bundle branch block, no overt ST ovation or depression, QTc 452, QRS 120 Cardiac Monitoring: An order for continuous cardiac monitoring was placed and demonstrated Normal sinus rhythm, sinus arrhythmia, 74 bpm, no ectopy. Laboratory studies: See below Imaging studies: See below Consultation(s): PAWEL Vidales hospitalist HPI: Per MDM. ROS: See above HPI for pertinent positives & negatives. A total of 10 systems reviewed and were otherwise negative. VITALS:See Below PHYSICAL EXAMINATION: GENERAL: Awake, alert, well-appearing, in no distress HENT: Normocephalic, atraumatic. Oropharynx unremarkable. EYES: Normal conjunctiva. Sclera non-icteric. NECK: Supple. No nuchal rigidity. FROM. No JVD. RESPIRATORY: Clear to auscultation. CARDIAC: Regular rate, normal rhythm. Extremities warm and well perfused. Pulses equal. ABDOMEN: Soft, non-distended. No tenderness to palpation. No rebound or guarding. No masses. MUSCULOSKELETAL: Chest examination reveals no tenderness. The back is symmetrical on inspection without obvious abnormality. There is no CVA tenderness to palpation. Right hip demonstrates no edema, erythema, warmth, induration or crepitus. No overt areas of fluctuance. Patient has full range of motion without difficulty. He does exhibit pain when axial pressure is applied on the foot. LOWER EXTREMITIES: Calves are equal size bilaterally and non-tender. No edema. No discoloration. NEURO: Normal sensorium. No sensory or motor deficits noted. SKIN: No rash or jaundice noted. 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 (Acute ~08/2024) Status post right hip replacement (Acute) Painful orthopaedic hardware Status post right knee replacement (~09/2021) Status post reverse total arthroplasty of left shoulder (~06/2020) Status post reverse arthroplasty of left shoulder (~05/2020) Morbid obesity Right hydrocele Meatal stenosis Urethral stricture Encounter for pre-operative examination (Acute) Leg edema History of gout GERD (gastroesophageal reflux disease) Well controlled and stable Cervical stenosis of spinal canal S/P gastric bypass Laceration of lower extremity Arthritis HTN (hypertension) Hx-TAKES DIURETIC Medical History Osteoarthritis Chronic back pain Morbid obesity Chronic edema GERD (gastroesophageal reflux disease) well controlled and stable Hypertension History of - improved with weight loss- no BP medications currently per patient Hx of gout no recent issues Hx of recurrent urinary tract infection follows with [facility] - denies any recent issues CKD (chronic kidney disease) stage 3, GFR 30-59 ml/min Baseline creatinine 1.4-1.8 per chart review-F/U PCP Chronic acquired lymphedema RLE (Hx cellulitis ~2017) - no current cellulitis issues to LEs Heart palpitations Hx tachycardia and palpitations, hx loop recorder with removal in 2022. [place] [facility] [place] unsure of findings. No issues x months History of sleep apnea Hx ("resolved" s/p gastric bypass but not formally tested) Surgical History History of total right hip arthroplasty 05/2024 History of right knee joint replacement (09/22/21) Dr Martin Status post reverse arthroplasty of left shoulder S/P bilateral cataract extraction Status post reverse arthroplasty of right shoulder Right reverse TSA: 09/15/19: LMA#5, atraumatic attempt x1 + PNB at [facility] Hx of gastric bypass ~2004 History of loop recorder placed in 2018, removed in 2022 at [facility] History of total left knee replacement 04/2018 History of colonoscopy History of cholecystectomy Fusion of spine (11/08/17) ACDF C5/C6 & C6/C7 ([facility] with Dr. 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 [employer]IST Feels Safe at Home: Yes Assistive Devices: Cane and Walker Allergies Allergies Allergy/AdvReac Type Severity Reaction Status Date / Time cephalexin AdvReac Mild "doesn't Verified 10/28/24 12:28 work" per patient Home Meds Home Medications Medication Instructions Recorded Confirmed allopurinol 300 mg tablet 300 mg PO QAM 01/18/18 10/28/24 cyclobenzaprine 10 mg tablet 10 mg PO TID PRN Spasms 01/18/18 10/28/24 fluticasone propionate 50 1 spray intranasal DAILY PRN 01/18/18 10/28/24 mcg/actuation nasal Congestion spray,suspension (Flonase Allergy Relief) omeprazole 20 mg tablet,delayed 20 mg PO QAM 01/18/18 10/28/24 release furosemide 40 mg tablet 40 mg PO QAM 03/25/18 10/28/24 B-complex with vitamin C (Super B 1 tab PO QAM 05/10/19 10/28/24 Complex-Vitamin C tablet) diclofenac sodium 75 mg 75 mg PO QAM 05/10/19 10/28/24 tablet,delayed release finasteride 5 mg tablet 5 mg PO QAM 05/10/19 10/28/24 multivitamin 1 tab PO QAM 05/10/19 10/28/24 phentermine 37.5 mg capsule 37.5 mg PO QAM 05/10/19 10/28/24 (Adipex-P) zolpidem 10 mg tablet (Ambien) 10 mg PO HS 05/10/19 10/28/24 potassium gluconate 595 mg (99 mg) 99 mg PO QAM 05/26/19 10/28/24 tablet,extended release docusate sodium 100 mg capsule 100 mg PO QAM PRN Constipation 09/09/19 10/28/24 (Stool Softener) tamsulosin 0.4 mg capsule 0.4 mg PO QAM 09/09/19 10/28/24 diphenhydramine 25 1 tab PO HS 08/25/21 10/28/24 mg-acetaminophen 500 mg tablet (Tylenol PM Extra Strength) Previous Rx's Medication Instructions Recorded betamethasone dipropionate 0.05 % 1 applic topical TID PRN skin 03/04/19 topical cream irritation #45 grams oxycodone 5 mg tablet 5 mg PO Q6 PRN pain #30 tabs 09/15/24 Results & Data (ED) Vital Signs Vital Signs - 24 hr 12/21/24 18:50 12/21/24 20:23 12/21/24 20:23 Temperature 36.8 C Temperature Source Temporal Artery Scan Pulse Rate 78 75 Pulse Rate [Right Finger] Pulse Rhythm Pulse Rhythm [Right Finger] Pulse Strength [Right Finger] Respiratory Rate 19 Respiratory Effort / Characteristics Respiratory Depth Respiratory Pattern Blood Pressure 132/81 142/84 H Blood Pressure [Right Arm] Blood Pressure Mean 98 117 Blood Pressure Mean [Right Arm] Blood Pressure Position [Right Arm] Pulse Oximetry 97 Oxygen Delivery Method Room Air Sepsis Recent Fever Within 48 Hours No Sepsis New/Unexplained Change in Mental Status N/A Sepsis Action Taken by Nursing No Action Required 12/21/24 20:30 12/21/24 20:31 12/21/24 20:45 Temperature Temperature Source Pulse Rate 73 76 Pulse Rate [Right Finger] 79 Pulse Rhythm Regular Pulse Rhythm [Right Finger] Regular Pulse Strength [Right Finger] Normal Respiratory Rate 25 H 20 18 Respiratory Effort / Characteristics Non-Labored Spontaneous Respiratory Depth Normal Respiratory Pattern Regular Blood Pressure Blood Pressure [Right Arm] 142/84 H Blood Pressure Mean Blood Pressure Mean [Right Arm] 103 Blood Pressure Position [Right Arm] Lying Pulse Oximetry 96 98 Oxygen Delivery Method Room Air Room Air Sepsis Recent Fever Within 48 Hours Sepsis New/Unexplained Change in Mental Status Sepsis Action Taken by Nursing 12/21/24 22:00 12/22/24 00:00 12/22/24 00:26 Temperature Temperature Source Pulse Rate 81 Pulse Rate [Right Finger] 76 80 Pulse Rhythm Pulse Rhythm [Right Finger] Regular Regular Pulse Strength [Right Finger] Normal Normal Respiratory Rate 19 20 Respiratory Effort / Characteristics Non-Labored Spontaneous Non-Labored Spontaneous Respiratory Depth Normal Normal Respiratory Pattern Regular Regular Blood Pressure Blood Pressure [Right Arm] 139/81 125/82 Blood Pressure Mean Blood Pressure Mean [Right Arm] 100 96 Blood Pressure Position [Right Arm] Lying Lying Pulse Oximetry 99 96 Oxygen Delivery Method Room Air Room Air Sepsis Recent Fever Within 48 Hours Sepsis New/Unexplained Change in Mental Status Sepsis Action Taken by Nursing Laboratory Data Attestation: I reviewed the patient's lab results. 12/21/24 19:38 12/21/24 19:38 Lab Results 12/21/24 12/21/24 12/22/24 Range/Units 19:38 20:09 00:08 WBC 4.04 L (4.8-10.8) K/ul RBC 4.76 (4.70-6.10) M/uL Hgb 12.3 L (14.0-18.0) g/dl Hct 39.6 L (42.0-52.0) % MCV 83.2 (80.0-100.0) fL MCH 25.8 (25.0-34.0) pg MCHC 31.1 L (32.0-36.0) g/dL RDW Std Deviation 65.2 H (36.4-46.3) fL RDW Coeff of Sam 22.3 H (11.5-14.5) % Plt Count 236 (130-400) K/uL MPV 10.1 (9.4-12.4) fL Immature Gran % (Auto) 0.5 % Neut % (Auto) 59.6 % Lymph % (Auto) 23.8 % [place] % (Auto) 9.7 % Eos % (Auto) 5.4 % Baso % (Auto) 1.0 % Neut # (Auto) 2.41 (1.40-6.50) K/uL Lymph # (Auto) 0.96 L (1.20-3.40) K/uL [place] # (Auto) 0.39 (0.11-0.59) K/uL Eos # (Auto) 0.22 (0.00-0.50) K/uL Baso # (Auto) 0.04 (0.00-0.20) K/uL Immature Gran # (Auto) 0.02 (0.01-0.20) K/uL Anisocytosis Present ESR 24 H (0-20) mm/hr Sodium 137 (136-145) mmol/L Potassium 4.1 (3.5-5.1) mmol/L Chloride 105 (98-107) mmol/L Carbon Dioxide 25 (21-32) mmol/L Anion Gap 7 (3-11) BUN 40 H (6-23) mg/dl Creatinine 1.92 H (0.6-1.4) mg/dl Est Cr Clr Drug Dosing Not Reportable eGFR 37.71 BUN/Creatinine Ratio 20.8 H (10-20) Glucose 108 H (70-99(Fasting)) mg/dl Lactate 0.9 (0.4-2.0) mmol/L Calcium 8.6 (8.6-10.3) mg/dl Total Bilirubin 0.5 (0.2-1.0) mg/dl AST 24 (13-39) U/L ALT 20 (7-52) U/L Alkaline Phosphatase 114 H (34-104) U/L C-Reactive Protein 1.20 H (0-0.5) mg/dl Total Protein 6.7 (6.0-8.3) gm/dl Albumin 3.7 (3.4-5.0) gm/dl Globulin 3.0 (2.5-4.0) gm/dl Albumin/Globulin Ratio 1.2 (0.9-2) Procalcitonin 0.08 (0-0.5) ng/ml Urine Comment Administered Medications Discontinued Medications Sodium Chloride (Nss) 1,000 mls @ 999 mls/hr IV .Q1H1M [place] Stop: 12/21/24 21:00 Last Admin: 12/21/24 20:49 Dose: 999 mls/hr Documented By: TED Daptomycin 1,475 mg/ Syringe 29.5 mls @ 14.75 mls/min IV NOW ONE; Protocol Stop: 12/21/24 22:51 Last Admin: 12/22/24 00:27 Dose: 14.75 mls/min Documented By: PAG Imaging Data Radiologist's Impression: Hip CT 12/21/24 21:09 Exam(s): CT RIGHT HIP Without Contrast EXAM: CT Right Lower Extremity Without Intravenous Contrast, Hip CLINICAL HISTORY: Reason for exam: pain, h/o infection s/p ROSENDO. TECHNIQUE: Axial computed tomography images of the right hip without intravenous contrast. CTDI is 45.03 mGy and DLP is 1374.71 mGy-cm. Automated exposure control was utilized for the study. A dose lowering technique was utilized adhering to the principles of ALARA. COMPARISON: CT 09/06/2024 FINDINGS: Bones/joints: Right total hip arthroplasty. No acute fracture. No lucency around the hardware. No joint effusion. No dislocation. Soft tissues: Chronic seroma along incision plain measuring 4.7 x 1.4 cm. IMPRESSION: 1. Right hip arthroplasty without evidence of hardware complication. 2. Chronic seroma along the dissection plane. 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, Infection of prosthetic total hip joint Patient Disposition: Admitted As Inpatient Condition: Fair Forms Stand Alone Forms: [facility] Prescriptions Prescriptions: No Action betamethasone dipropionate 0.05 % cream 1 applic TOP TID PRN (Reason: skin irritation) Qty: 45 11RF furosemide 40 mg tablet 40 mg PO QAM allopurinol 300 mg Tablet 300 mg PO QAM omeprazole 20 mg Tablet,Delayed Release (Dr/Ec) 20 mg PO QAM fluticasone propionate [Flonase Allergy Relief] 50 mcg/actuation [place],Suspension 1 spray Intranasal DAILY PRN (Reason: Congestion) cyclobenzaprine 10 mg Tablet 10 mg PO TID PRN (Reason: Spasms) potassium gluconate 595 mg (99 mg) Tablet Extended Release 99 mg PO QAM zolpidem [Ambien] 10 mg tablet 10 mg PO HS finasteride 5 mg tablet 5 mg PO QAM phentermine [Adipex-P] 37.5 mg capsule 37.5 mg PO QAM Rx Instructions: last filled 04/27 30 day supply multivitamin Tablet 1 tab PO QAM B-complex with vitamin C [Super B Complex-Vitamin C] Tablet 1 tab PO QAM diclofenac sodium 75 mg tablet,delayed release (DR/EC) 75 mg PO QAM docusate sodium [Stool Softener] 100 mg Capsule 100 mg PO QAM PRN (Reason: Constipation) tamsulosin 0.4 mg capsule 0.4 mg PO QAM diphenhydramine-acetaminophen [Tylenol PM Extra Strength] 25-500 mg Tablet 1 tab PO HS oxycodone 5 mg tablet 5 mg PO Q6 PRN (Reason: pain) Qty: 30 0RF Referrals Referrals: Pita Montes MD [Primary Care Provider] - Discharge Problem: Infection of prosthetic total hip joint Qualifiers: Encounter type: sequela Qualified Code(s): T84.59XS - Infection and inflammatory reaction due to other internal joint prosthesis, sequela; Z96.649 - Presence of unspecified artificial hip joint
[2024-12-21 20:04] LABS: Hematocrit (blood only) 39.6 % (42.0-52.0); Hemoglobin 12.3 g/dl (14.0-18.0); Immature Granulocytes # (auto) 0.02 K/uL (0.01-0.20); Immature Granulocytes % (auto) 0.5 %; Mean Corpuscular Hemoglobin 25.8 pg (25.0-34.0); Mean Corpuscular Volume 83.2 fL (80.0-100.0); Platelet Count 236 K/uL (130-400); RDW Standard Deviation 65.2 fL (36.4-46.3); Red Blood Count 4.76 M/uL (4.70-6.10); White Blood Count 4.04 K/ul (4.8-10.8)
[2024-12-21 20:16] LABS: Alanine Aminotransferase 20 U/L (7-52); Albumin Globulin Ratio 1.2 (0.9-2); Alkaline Phosphatase 114 U/L (34-104); Anion Gap 7 (3-11); Bilirubin,Total 0.5 mg/dl (0.2-1.0); Blood Urea Nitrogen 40 mg/dl (6-23); Calcium 8.6 mg/dl (8.6-10.3); Carbon Dioxide 25 mmol/L (21-32); Chloride 105 mmol/L (98-107); Globulin 3.0 gm/dl (2.5-4.0); Glucose 108 mg/dl (70-99(Fasting)); Potassium 4.1 mmol/L (3.5-5.1); Sodium 137 mmol/L (136-145); Total Protein 6.7 gm/dl (6.0-8.3)
[2024-12-21 20:22] LABS: Anisocytosis Present
[2024-12-21] MEDS: SODIUM CHLORIDE 0.9% 1,000 ML IV SCH (20:49)
--- NOTE | 2024-12-21 22:46 | CT Scan Report ---
Exam(s): CT RIGHT HIP Without Contrast EXAM: CT Right Lower Extremity Without Intravenous Contrast, Hip CLINICAL HISTORY: Reason for exam: pain, h/o infection s/p ROSENDO. TECHNIQUE: Axial computed tomography images of the right hip without intravenous contrast. CTDI is 45.03 mGy and DLP is 1374.71 mGy-cm. Automated exposure control was utilized for the study. A dose lowering technique was utilized adhering to the principles of ALARA. COMPARISON: CT 09/06/2024 FINDINGS: Bones/joints: Right total hip arthroplasty. No acute fracture. No lucency around the hardware. No joint effusion. No dislocation. Soft tissues: Chronic seroma along incision plain measuring 4.7 x 1.4 cm. IMPRESSION: 1. Right hip arthroplasty without evidence of hardware complication. 2. Chronic seroma along the dissection plane. Electronically signed by: Cam Silverio MD 12/21/24 22:45 PM
--- NOTE | 2024-12-22 00:20 | History & Physical Report ---
Date of Service December 22, 2024 Assessment & Plan (1) Acute pain of right hip: (2) UTI (urinary tract infection): (3) BPH (benign prostatic hyperplasia): (4) History of gout: (5) HTN (hypertension): Plan 69yo male with history of ROSENDO 06/05/24 with post-operative infection s/p open I&D and revision of the femoral stem 09/11/24 presenting with severe pain in the right thigh ongoing for the last week. Pain is worse with weight bearing - atraumatic. No fever, chills, cough, SOB or other signs/symptoms of infection. #Acute pain of right hip - patient is s/p ROSENDO 06/05/24 complicated by post- operative infection s/p open I&D with revision of the femoral st3em 09/11/24. Patient has been on buttermaker antibiotics via PICC line then on oral antibiotics. He reports there was a break in his oral antibiotics due to insurance not approving the medication. Patient is afebrile, HD stable. Mild elevation of inflammatory markers at present with ESR=24 and CRP=1.92. CT findings as above with post-operative seroma. -Admit to medical -Follow cultures sent from ER - urine and blood -Will treat with Vancomycin for now. Patient reports he was on a medication through the IV that "was breaking down my muscles". He is uncertain of the details - question elevation of CK due to Daptomycin? He did have a mild CK elevation of 365 on 09/28/24 -Orthopedic Surgery consultation appreciated -Tylenol, Oxycodone and Morphine PRN pain -Bowel regimen ordered -LR at 100mL/hr x 2L -Hold Lasix for now #UTI - patient UA suggestive of infection -Follow culture sent by ER -Ceftriaxone 2gm IV daily #Gout - chronic. Stable -Continue Allopurinol 300mg po qAM #BPH -Bladder scan as needed -Continue Proscar and Flomax #Hypertension - blood pressure stable -Monitor History of Present Illness Chief Complaint: Right thigh pain Primary Care Provider: Pita Montes MD Dakota Colvin is a 69yo male with history of HTN, CKD presenting with one week of progressive pain in the right thigh. Patient had right anterior ROSENDO performed by Dr. Martin on 06/05/2024. The procedure went well with no complications identified. Patient was discharged from the hospital on 06/06/24 on Cefadroxil 500mg po BID x 10 days. On 06/23/24 patient was seen in the ER with complaint of pain and redness over the incision site. He was started on Augmentin 875-125mg po BID in the ER. He was seen by Orthopedics on 06/24/24 and his antibiotics were changed to Doxycycline 100mg po BID x 3 weeks - wound noted to be improving during followup visits. Patient was seen by Ortho on 09/01/24 complaining of persistent pain mostly in the hip. He had an ESR=52 and CRP=2.82. CT of the hip on 09/06/24 revealed a 9cm fluid collection within the arthroplasty operative bed and a few locules of air suggesting a seroma. Patient returned to the OR on 09/11/24 for open irrigation and debridement and revision fo the femoral stem. Intraoperative cultures at that time POSITIVE for staphylococcus epidermidis (Resistant to Oxacillin, Tetracycline, TMP-SMX). He was evaluated by Infectious Disease and was transitioned from Vancomycin to Daptomycin - PICC line was placed and patient was to continue 6 week course of antibiotics through 10/22/24 which was followed by oral antibiotics (uncertain which one, no records). Patient reports there was some difficulty with insurance approving his oral antibiotics, therefore, there was a lapse in treatment. He has recently been restarted on oral antibiotics - 8 or 9 days ago. Patient is unsure of which antibiotic. He has been following with Dr. Montiel from [place]. Patient was up at his camp last weekend and was doing some work. He did not fall or injure himself in any way. He then developed some pain in his right thigh which has been progressively worsening over the last week. He feels that the pain is in his femur and does not involve the hip joint - states that it feels different than when he had the infection. Pain is with weight bearing. He is having difficulty ambulating and over the last three days has been needing to use a walker. He denies fever, chills, chest pain, cough, SOB. No redness, swelling or drainage from the incision site. Patient presents this evening with worsening pain, inability to walk. In the ER he is afebrile, HD stable ER Course: Daptomycin NSS Allergies Allergy/AdvReac Type Severity Reaction Status Date / Time cephalexin AdvReac Mild "doesn't Verified 10/28/24 12:28 work" per patient Home Medications Medication Instructions Recorded Confirmed Type allopurinol 300 mg tablet 300 mg PO QAM 01/18/18 10/28/24 History cyclobenzaprine 10 mg tablet 10 mg PO TID PRN Spasms 01/18/18 10/28/24 History fluticasone propionate 50 1 spray intranasal DAILY PRN 01/18/18 10/28/24 History mcg/actuation nasal Congestion spray,suspension (Flonase Allergy Relief) omeprazole 20 mg tablet,delayed 20 mg PO QAM 01/18/18 10/28/24 History release furosemide 40 mg tablet 40 mg PO QAM 03/25/18 10/28/24 History betamethasone dipropionate 0.05 % 1 applic topical TID PRN skin 03/04/19 10/28/24 Rx topical cream irritation #45 grams B-complex with vitamin C (Super B 1 tab PO QAM 05/10/19 10/28/24 History Complex-Vitamin C tablet) diclofenac sodium 75 mg 75 mg PO QAM 05/10/19 10/28/24 History tablet,delayed release finasteride 5 mg tablet 5 mg PO QAM 05/10/19 10/28/24 History multivitamin 1 tab PO QAM 05/10/19 10/28/24 History phentermine 37.5 mg capsule 37.5 mg PO QAM 05/10/19 10/28/24 History (Adipex-P) zolpidem 10 mg tablet (Ambien) 10 mg PO HS 05/10/19 10/28/24 History potassium gluconate 595 mg (99 mg) 99 mg PO QAM 05/26/19 10/28/24 History tablet,extended release docusate sodium 100 mg capsule 100 mg PO QAM PRN Constipation 09/09/19 10/28/24 History (Stool Softener) tamsulosin 0.4 mg capsule 0.4 mg PO QAM 09/09/19 10/28/24 History diphenhydramine 25 1 tab PO HS 08/25/21 10/28/24 History mg-acetaminophen 500 mg tablet (Tylenol PM Extra Strength) oxycodone 5 mg tablet 5 mg PO Q6 PRN pain #30 tabs 09/15/24 10/28/24 Rx Past Med/Surg History Problem List (Updated 12/22/24 @ 01:04 by Liseth Flores DO) UTI (urinary tract infection) Acute pain of right hip (Acute) Infection of prosthetic total hip joint (Acute) BPH (benign prostatic hyperplasia) 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 (Acute ~08/2024) Status post right hip replacement (Acute) Painful orthopaedic hardware Status post right knee replacement (~09/2021) Status post reverse total arthroplasty of left shoulder (~06/2020) Status post reverse arthroplasty of left shoulder (~05/2020) Morbid obesity Right hydrocele Meatal stenosis Urethral stricture Encounter for pre-operative examination (Acute) Leg edema History of gout GERD (gastroesophageal reflux disease) Well controlled and stable Cervical stenosis of spinal canal S/P gastric bypass Laceration of lower extremity Arthritis HTN (hypertension) Hx-TAKES DIURETIC Medical History Osteoarthritis Chronic back pain Morbid obesity Chronic edema GERD (gastroesophageal reflux disease) well controlled and stable Hypertension History of - improved with weight loss- no BP medications currently per patient Hx of gout no recent issues Hx of recurrent urinary tract infection follows with [facility] - denies any recent issues CKD (chronic kidney disease) stage 3, GFR 30-59 ml/min Baseline creatinine 1.4-1.8 per chart review-F/U PCP Chronic acquired lymphedema RLE (Hx cellulitis ~2017) - no current cellulitis issues to LEs Heart palpitations Hx tachycardia and palpitations, hx loop recorder with removal in 2022. followed with [facility] [place] [facility]. unsure of findings. No issues x months History of sleep apnea Hx ("resolved" s/p gastric bypass but not formally tested) Surgical History History of total right hip arthroplasty 05/2024 History of right knee joint replacement (09/22/21) Dr Martin Status post reverse arthroplasty of left shoulder S/P bilateral cataract extraction Status post reverse arthroplasty of right shoulder Right reverse TSA: 09/15/19: LMA#5, atraumatic attempt x1 + PNB at [facility] Hx of gastric bypass ~2004 History of loop recorder placed in 2018, removed in 2022 at [facility], [place] History of total left knee replacement 04/2018 History of colonoscopy History of cholecystectomy Fusion of spine (11/08/17) ACDF C5/C6 & C6/C7 ([facility] with Dr. De La Cruz) Family History Mother Family history of diabetes mellitus Other No family history of adverse response to anesthesia Social History Smoking Status: Former smoker Tobacco Type: Smokeless Tobacco (Dip or Chew) Second Hand Exposure: No; Do You Dip or Chew Tobacco: Yes; Hx Alcohol Use: Yes Alcohol type: beer Hx Substance Use: No Preferred Language: Cambodian Communication Ability: Effective Parachute Panel Joiner Required: No Beliefs That Will Affect Care: None marital status: Single marital status details: 03/2021 Current Living Situation: Family current occupational status: employed current occupation: [employer] Feels Safe at Home: Yes Assistive Devices: Cane and Walker Review of Systems Review of Systems: All systems reviewed & are unremarkable except as noted in HPI & below Physical Exam Physical Exam: General: patient in discomfort in right thigh, worse with weight bearing Skin: chronic skin changes of bilateral LE. Thigh with no bleeding/drainage/erythema HEENT: NC/AT, PERRL, EOMI, anicteric sclera, conjunctiva without injection, external ear normal to inspection and nontender, nares patent, moist mucus membranes, dentition intact, no oropharyngeal lesions, neck supple, trachea midline, no LAD, no thyromegaly, no JVD Heart: +S1/S2, regular, 2/6 PAO at left sternal border Lungs: equal air entry bilaterally, no rales/rhonchi/wheezes Abd: +BS, soft, NT/ND, no masses/organomegaly/ascites Ext: chronic venous stasis changes Neuro: nonfocal, patient AA&O x 4, speech intact, no facial droop, moving all extremities on command with equal strength 5/5, patient ambulated to bathroom with walker, pain with weight bearing, short steps Results & Data Results & Data Vital Signs (Past 12 Hours) Vital Signs Temp Pulse Pulse Resp BP BP Pulse Ox 12/21/24 22:00 76 19 139/81 99 12/21/24 20:45 79 18 142/84 H 98 12/21/24 20:31 76 20 96 12/21/24 20:30 73 25 H 12/21/24 20:23 142/84 H 12/21/24 20:23 75 12/21/24 18:50 36.8 C 78 19 132/81 97 O2 Del Method 12/21/24 22:00 Room Air 12/21/24 20:45 Room Air 12/21/24 20:31 Room Air 12/21/24 20:30 12/21/24 20:23 12/21/24 20:23 12/21/24 18:50 Room Air Laboratory Results Laboratory Results WBC 4.04 K/ul (4.8-10.8) L 12/21/24 19:38 RBC 4.76 M/uL (4.70-6.10) 12/21/24 19:38 Hgb 12.3 g/dl (14.0-18.0) L 12/21/24 19:38 Hct 39.6 % (42.0-52.0) L 12/21/24 19:38 MCV 83.2 fL (80.0-100.0) 12/21/24 19:38 MCH 25.8 pg (25.0-34.0) 12/21/24 19:38 MCHC 31.1 g/dL (32.0-36.0) L 12/21/24 19:38 RDW Std Deviation 65.2 fL (36.4-46.3) H 12/21/24 19:38 RDW Coeff of Sam 22.3 % (11.5-14.5) H 12/21/24 19:38 Plt Count 236 K/uL (130-400) 12/21/24 19:38 MPV 10.1 fL (9.4-12.4) 12/21/24 19:38 Immature Gran % (Auto) 0.5 % 12/21/24 19:38 Neut % (Auto) 59.6 % 12/21/24 19:38 Lymph % (Auto) 23.8 % 12/21/24 19:38 [place] % (Auto) 9.7 % 12/21/24 19:38 Eos % (Auto) 5.4 % 12/21/24 19:38 Baso % (Auto) 1.0 % 12/21/24 19:38 Neut # (Auto) 2.41 K/uL (1.40-6.50) 12/21/24 19:38 Lymph # (Auto) 0.96 K/uL (1.20-3.40) L 12/21/24 19:38 [place] # (Auto) 0.39 K/uL (0.11-0.59) 12/21/24 19:38 Eos # (Auto) 0.22 K/uL (0.00-0.50) 12/21/24 19:38 Baso # (Auto) 0.04 K/uL (0.00-0.20) 12/21/24 19:38 Immature Gran # (Auto) 0.02 K/uL (0.01-0.20) 12/21/24 19:38 Anisocytosis Present 12/21/24 19:38 ESR 24 mm/hr (0-20) H 12/21/24 19:38 Sodium 137 mmol/L (136-145) 12/21/24 19:38 Potassium 4.1 mmol/L (3.5-5.1) 12/21/24 19:38 Chloride 105 mmol/L (98-107) 12/21/24 19:38 Carbon Dioxide 25 mmol/L (21-32) 12/21/24 19:38 Anion Gap 7 (3-11) 12/21/24 19:38 BUN 40 mg/dl (6-23) H 12/21/24 19:38 Creatinine 1.92 mg/dl (0.6-1.4) H 12/21/24 19:38 Est Cr Clr Drug Dosing Not Reportable 12/21/24 19:38 eGFR 37.71 12/21/24 19:38 BUN/Creatinine Ratio 20.8 (10-20) H 12/21/24 19:38 Glucose 108 mg/dl (70-99(Fasting)) H 12/21/24 19:38 Lactate 0.9 mmol/L (0.4-2.0) 12/21/24 20:09 Calcium 8.6 mg/dl (8.6-10.3) 12/21/24 19:38 Total Bilirubin 0.5 mg/dl (0.2-1.0) 12/21/24 19:38 AST 24 U/L (13-39) 12/21/24 19:38 ALT 20 U/L (7-52) 12/21/24 19:38 Alkaline Phosphatase 114 U/L (34-104) H 12/21/24 19:38 C-Reactive Protein 1.20 mg/dl (0-0.5) H 12/21/24 19:38 Total Protein 6.7 gm/dl (6.0-8.3) 12/21/24 19:38 Albumin 3.7 gm/dl (3.4-5.0) 12/21/24 19:38 Globulin 3.0 gm/dl (2.5-4.0) 12/21/24 19:38 Albumin/Globulin Ratio 1.2 (0.9-2) 12/21/24 19:38 Procalcitonin 0.08 ng/ml (0-0.5) 12/21/24 19:38 Urine Color Yellow 12/22/24 00:08 Urine Appearance Clear (Clear) 12/22/24 00:08 Urine pH 5.5 (4.5-7.5) 12/22/24 00:08 Ur Specific [place] 1.012 (1.000-1.030) 12/22/24 00:08 Urine Protein Negative (Negative) 12/22/24 00:08 Urine Glucose (UA) Negative (Negative) 12/22/24 00:08 Urine Ketones Negative (Negative) 12/22/24 00:08 Urine Blood Negative (Negative) 12/22/24 00:08 Urine Nitrite Positive (Negative) A 12/22/24 00:08 Urine Bilirubin Negative (Negative) 12/22/24 00:08 Urine Urobilinogen Negative (Negative) 12/22/24 00:08 Ur Leukocyte Esterase 1+ (Negative) H 12/22/24 00:08 Urine WBC (Auto) 11-20 /hpf (0-5) H 12/22/24 00:08 Urine RBC (Auto) 0-2 /hpf (0-2) 12/22/24 00:08 U Hyaline Cast (Auto) 0-2 /lpf (0-2) 12/22/24 00:08 U Epithel Cells (Auto) 0-2 /hpf (0-2) 12/22/24 00:08 Urine Bacteria (Auto) 4+ (None Seen) H 12/22/24 00:08 Urine Comment 12/22/24 00:[address] 12/21/24 21:09 Exam(s): CT RIGHT HIP Without Contrast EXAM: CT Right Lower Extremity Without Intravenous Contrast, Hip CLINICAL HISTORY: Reason for exam: pain, h/o infection s/p ROSENDO. TECHNIQUE: Axial computed tomography images of the right hip without intravenous contrast. CTDI is 45.03 mGy and DLP is 1374.71 mGy-cm. Automated exposure control was utilized for the study. A dose lowering technique was utilized adhering to the principles of ALARA. COMPARISON: CT 09/06/2024 FINDINGS: Bones/joints: Right total hip arthroplasty. No acute fracture. No lucency around the hardware. No joint effusion. No dislocation. Soft tissues: Chronic seroma along incision plain measuring 4.7 x 1.4 cm. IMPRESSION: 1. Right hip arthroplasty without evidence of hardware complication. 2. Chronic seroma along the dissection plane. Electronically signed by: Cam Silverio MD 12/21/24 22:45 PM ECG Additional Comments: EKG per my review with NSR at 74bpm, QW=229, UMV=539, EJj=192, RBBB pattern, no acute ischemic changes PG Care Time/CCT Total # of Minutes Spent Total Time Spent with Patient: Total time spent is greater than 50% in coordination of care (as documented) at patient's floor/unit and/or counseling patient: Coding Level of Care Code 36026 INT INP/OBS CARE 375MIN Diagnoses Acute pain of right hip M25.551 UTI (urinary tract infection) N39.0 BPH (benign prostatic hyperplasia) N40.0 History of gout Z87.39 HTN (hypertension) I10
[2024-12-22] MEDS: DAPTOMYCIN IV ONE (00:27)
[2024-12-22 00:50] LABS: Appearance Urine Clear (Clear); Bacteria Urine Automated 4+ (None Seen); Cast Urine Automated 0-2 /lpf (0-2); Epithelial Cell Urine Auto 0-2 /hpf (0-2); Glucose Urine UA Negative (Negative); RBC Urine Automated 0-2 /hpf (0-2)
[2024-12-22] MEDS ORDERED: VANCOMYCIN HCL / NSS 1,000 MG/270 ML BAG IV SCH (01:01)
[2024-12-22] MEDS ORDERED: ONDANSETRON INJ 2 MG/ML 2 ML VIAL IV PRN (01:01)
[2024-12-22] MEDS ORDERED: DOCUSATE SODIUM 100 MG CAP PO PRN (01:01)
[2024-12-22] MEDS ORDERED: POLYETHYLENE (MIRALAX) 17 GM PACK PO PRN (01:01)
[2024-12-22] MEDS ORDERED: MoRPHine SULFATE 4 MG/ML 1 ML CARP\\VIAL IV PRN (01:01)
[2024-12-22] MEDS ORDERED: ACETAMINOPHEN 325 MG TAB PO PRN (01:01)
[2024-12-22] MEDS ORDERED: VANCOMYCIN CONSULT ACTIVE PRN (01:01)
[2024-12-22] MEDS ORDERED: FLUTICASONE PROPIONATE NA SPR 16 GM BTL PRN (01:12)
[2024-12-22] MEDS: MoRPHine SULFATE 2 MG/ML CARP IV STA (01:12)
[2024-12-22] MEDS: LACTATED RINGER'S 1,000 ML IV SCH (01:20)
--- NOTE | 2024-12-22 01:30 | Pharmacy Report ---
Pharmacy PK ABX Note - Date of Service December 22, 2024 - Assessment and Plan Assessment 69 year old M receiving vancomycin for treatment of left upper extremity cellulitis. Pertinent microbiologic data includes: blood cultures pending. Day # 1 of antimicrobial therapy. Plan Vancomycin * Loading dose: 1500 mg IV x 1 * Maintenance dose: 750 mg IV every 8 hours * Regimen is predicted to achieve target AUC/TAMMY of 400-600 mg/L.hr * Trough level ordered for: 12/23/24 @0730 Pharmacy will continue to follow and will adjust dose/frequency as necessary. Thank you. Pharmacy has transitioned to AUC monitoring for vancomycin. AUC/TAMMY is the preferred PK/PD target and is associated with decreased risk of nephrotoxicity compared to traditional trough targets.
[2024-12-22] MEDS: cefTRIAXone SODIUM 2,000 MG/50 ML BAG IV ONE (01:32)
[2024-12-22] MEDS: VANCOMYCIN HCL 2,750 MG in SODIUM CHLORIDE 0.9% 500 ML IV ONE (02:13)
--- NOTE | 2024-12-22 03:49 | Pharmacy Report ---
Pharmacy PK ABX Note - Date of Service December 22, 2024 - Assessment and Plan Assessment 69 year old M receiving vancomycin for treatment of UTI/right hip pain s/p ROSENDO 06/05/24 with revision 09/11/24 treated with 6 weeks IV daptomycin ending 10/22/24. Follows with infectious disease and orthopedics outpatient. Pertinent microbiologic data includes: blood cultures and urine culture pending. Will dose vancomycin based on prior admission data and get an early level tomorrow due to slightly elevated serum creatinine. Day # 1 of antimicrobial therapy. Plan Vancomycin * Loading dose: 2750 mg IV x 1 * Maintenance dose: 750 mg IV every 12 hours * Regimen is predicted to achieve target AUC/TAMMY of 400-600 mg/L.hr * Trough level ordered for: 12/23/24 @0530 Pharmacy will continue to follow and will adjust dose/frequency as necessary. Thank you. Pharmacy has transitioned to AUC monitoring for vancomycin. AUC/TAMMY is the preferred PK/PD target and is associated with decreased risk of nephrotoxicity compared to traditional trough targets.
[2024-12-22] MEDS: TAMSULOSIN HCL 0.4 MG CAP PO SCH (07:42)
[2024-12-22] MEDS: FINASTERIDE 5 MG TAB PO SCH (07:43)
[2024-12-22] MEDS: DOCUSATE SODIUM/SENNA 50/8.6MG TAB PO SCH (08:13)
[2024-12-22 08:14] VITALS: RESP 21; O2SAT 95
--- NOTE | 2024-12-22 08:49 | Orthopedic Consultation ---
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 Also consider overuse injury, implant complication * Chronic appearing seroma along dissection plane * Recommend continued work-up to evaluate orthopedic hardware * XR lumbar spine and R femur pending * Weight bearing status: WBAT * Daily treatment: Physical Therapy/ Occupational Therapy per protocol * Pain control * Disposition: TBD * Remainder care per primary team * Will continue to follow Update * XR reviewed, no evidence of hardware loosing or new fracture * Exam and labs not consistent with joint infection * No further work-up/intervention planned at this time from orthopedic standpoint * Activity as tolerated * Ice, anti-inflammatory medication * Ok for discharge from ortho standpoint when otherwise cleared History of Present Illness Reason for Consultation: R thigh pain Requesting Physician: . Attending Physician: Kelton Young MD .Patient is a 69 y/o male with right thigh pain. PMH including HTN, CKD. Well known to orthopedic team with history of R ROSENDO 06/06/24 with subsequent implant l oosening requiring I&D and revision ROSENDO on 09/11/24 with intra-operative cultures (+) Staph epidermidis, evaluated by ID team and completed 6 week course IV abx but unfortunately had lapse in oral abx coverage due to insurance difficulties. Follows with Dr Montiel from ID. 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 Reports pain of the anterior thigh that is minimal at rest but increases significantly with weight-bearing. Current workup including CT right hip demonstrating chronic seroma at dissection plane. Labs including WBC 4, ESR 24, and C-RP 1.20. Urinalysis indicative of UTI and was started on empiric antibiotics. Admitted to hospital medicine team. Orthopedics consulted for management recommendations. At time of exam patient lying comfortably in bed, no acute distress. Reports minimal to no hip or thigh pain at rest that increases significantly with attempted weightbearing. Denies tingling or numbness of right thigh or lower leg. Denies recent fevers, chills. Denies recent trauma to the right leg. Allergies Allergy/AdvReac Type Severity Reaction Status Date / Time cephalexin AdvReac Mild "doesn't Verified 10/28/24 12:28 work" per patient Home Medications Medication Instructions Recorded Confirmed Type allopurinol 300 mg tablet 300 mg PO QAM 01/18/18 12/22/24 History cyclobenzaprine 10 mg tablet 10 mg PO TID PRN Spasms 01/18/18 12/22/24 History fluticasone propionate 50 1 spray intranasal DAILY PRN 01/18/18 12/22/24 History mcg/actuation nasal Congestion spray,suspension (Flonase Allergy Relief) omeprazole 20 mg tablet,delayed 20 mg PO QAM 01/18/18 12/22/24 History release furosemide 40 mg tablet 40 mg PO QAM 03/25/18 12/22/24 History B-complex with vitamin C (Super B 1 tab PO QAM 05/10/19 12/22/24 History Complex-Vitamin C tablet) diclofenac sodium 75 mg 75 mg PO QAM 05/10/19 12/22/24 History tablet,delayed release finasteride 5 mg tablet 5 mg PO QAM 05/10/19 12/22/24 History multivitamin 1 tab PO QAM 05/10/19 12/22/24 History zolpidem 10 mg tablet (Ambien) 10 mg PO HS 05/10/19 12/22/24 History potassium gluconate 595 mg (99 mg) 99 mg PO QAM 05/26/19 12/22/24 History tablet,extended release docusate sodium 100 mg capsule 100 mg PO QAM PRN Constipation 09/09/19 12/22/24 History (Stool Softener) tamsulosin 0.4 mg capsule 0.4 mg PO QAM 09/09/19 12/22/24 History diphenhydramine 25 1 tab PO HS 08/25/21 12/22/24 History mg-acetaminophen 500 mg tablet (Tylenol PM Extra Strength) oxycodone 5 mg tablet 5 mg PO Q6 PRN pain #30 tabs 09/15/24 12/22/24 Rx ferrous sulfate 325 mg (65 mg 325 mg PO DAILY 12/22/24 12/22/24 History iron) tablet (FeroSul) Past Med/Surg History Problem List (Updated 12/22/24 @ 01:04 by Liseth Flores DO) UTI (urinary tract infection) Acute pain of right hip (Acute) Infection of prosthetic total hip joint (Acute) BPH (benign prostatic hyperplasia) 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 (Acute ~08/2024) Status post right hip replacement (Acute) Painful orthopaedic hardware Status post right knee replacement (~09/2021) Status post reverse total arthroplasty of left shoulder (~06/2020) Status post reverse arthroplasty of left shoulder (~05/2020) Morbid obesity Right hydrocele Meatal stenosis Urethral stricture Encounter for pre-operative examination (Acute) Leg edema History of gout GERD (gastroesophageal reflux disease) Well controlled and stable Cervical stenosis of spinal canal S/P gastric bypass Laceration of lower extremity Arthritis HTN (hypertension) Hx-TAKES DIURETIC Medical History Osteoarthritis Chronic back pain Morbid obesity Chronic edema GERD (gastroesophageal reflux disease) well controlled and stable Hypertension History of - improved with weight loss- no BP medications currently per patient Hx of gout no recent issues Hx of recurrent urinary tract infection follows with [facility] - denies any recent issues CKD (chronic kidney disease) stage 3, GFR 30-59 ml/min Baseline creatinine 1.4-1.8 per chart review-F/U PCP Chronic acquired lymphedema RLE (Hx cellulitis ~2017) - no current cellulitis issues to LEs Heart palpitations Hx tachycardia and palpitations, hx loop recorder with removal in 2022. followed with [facility] [place] cardiology. unsure of findings. No issues x months History of sleep apnea Hx ("resolved" s/p gastric bypass but not formally tested) Surgical History History of total right hip arthroplasty 05/2024 History of right knee joint replacement (09/22/21) Dr Martin Status post reverse arthroplasty of left shoulder S/P bilateral cataract extraction Status post reverse arthroplasty of right shoulder Right reverse TSA: 09/15/19: LMA#5, atraumatic attempt x1 + PNB at [facility] Hx of gastric bypass ~2004 History of loop recorder placed in 2018, removed in 2022 at [facility] History of total left knee replacement 04/2018 History of colonoscopy History of cholecystectomy Fusion of spine (11/08/17) ACDF C5/C6 & C6/C7 ([facility] with Dr. 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 Physical Exam . * General: Alert and oriented, no acute distress * Constitutional: well-developed, well-nourished. * Respiratory: Normal respiratory effort, no distress * Gastrointestinal: No tenderness to palpation, no rigidity or guarding. * Skin: No rash or lesion. * Neurologic: Grossly normal * Musculoskeletal: Well healed right hip incision. No local erythema, wound breakdown, drainage, or evidence of superficial infection. Otherwise no overlying skin changes to right leg. No TTP anterior hip region, proximal thigh, distal thigh, or lower leg. No pain with log roll, hip flexion, or hip IR/ER. Proximal-mid thigh pain with axial loading through foot. Sensation intact plantar/dorsal foot. Brisk capillary refill. Results & Data Results & Data Laboratory Results . 12/22/24 00:08 Urine Culture - Pending Urine,Clean Catch 12/21/24 20:09 Aerobic Blood Culture - Pending Blood Anaerobic Blood Culture - Pending 12/21/24 20:09 Aerobic Blood Culture - Pending Blood Anaerobic Blood Culture - Pending 12/22/24 12/21/24 12/21/24 00:08 20:09 19:38 WBC 4.04 L RBC 4.76 Hgb 12.3 L Hct 39.6 L MCV 83.2 MCH 25.8 MCHC 31.1 L RDW Std Deviation 65.2 H RDW Coeff of Sam 22.3 H Plt Count 236 MPV 10.1 Immature Gran % (Auto) 0.5 Neut % (Auto) 59.6 Lymph % (Auto) 23.8 [place]le % (Auto) 9.7 Eos % (Auto) 5.4 Baso % (Auto) 1.0 Neut # (Auto) 2.41 Lymph # (Auto) 0.96 L [place] # (Auto) 0.39 Eos # (Auto) 0.22 Baso # (Auto) 0.04 Immature Gran # (Auto) 0.02 Anisocytosis Present ESR 24 H Sodium 137 Potassium 4.1 Chloride 105 Carbon Dioxide 25 Anion Gap 7 BUN 40 H Creatinine 1.92 H Est Cr Clr Drug Dosing Not Reportable eGFR 37.71 BUN/Creatinine Ratio 20.8 H Glucose 108 H Lactate 0.9 Calcium 8.6 Total Bilirubin 0.5 AST 24 ALT 20 Alkaline Phosphatase 114 H C-Reactive Protein 1.20 H Total Protein 6.7 Albumin 3.7 Globulin 3.0 Albumin/Globulin Ratio 1.2 Procalcitonin 0.08 Urine Color Yellow Urine Appearance Clear Urine pH 5.5 Ur Specific [place] 1.012 Urine Protein Negative Urine Glucose (UA) Negative Urine Ketones Negative Urine Blood Negative Urine Nitrite Positive A Urine Bilirubin Negative Urine Urobilinogen Negative Ur Leukocyte Esterase 1+ H Urine WBC (Auto) 11-20 H Urine RBC (Auto) 0-2 U Hyaline Cast (Auto) 0-2 U Epithel Cells (Auto) 0-2 Urine Bacteria (Auto) 4+ H Urine Comment Diagnostic Findings . Hip CT 12/21/24 21:09 Exam(s): CT RIGHT HIP Without Contrast EXAM: CT Right Lower Extremity Without Intravenous Contrast, Hip CLINICAL HISTORY: Reason for exam: pain, h/o infection s/p ROSENDO. TECHNIQUE: Axial computed tomography images of the right hip without intravenous contrast. CTDI is 45.03 mGy and DLP is 1374.71 mGy-cm. Automated exposure control was utilized for the study. A dose lowering technique was utilized adhering to the principles of ALARA. COMPARISON: CT 09/06/2024 FINDINGS: Bones/joints: Right total hip arthroplasty. No acute fracture. No lucency around the hardware. No joint effusion. No dislocation. Soft tissues: Chronic seroma along incision plain measuring 4.7 x 1.4 cm. IMPRESSION: 1. Right hip arthroplasty without evidence of hardware complication. 2. Chronic seroma along the dissection plane. 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
[2024-12-22 09:02] LABS: Hematocrit (blood only) 35.9 % (42.0-52.0); Hemoglobin 11.0 g/dl (14.0-18.0); Mean Corpuscular Hemoglobin 25.8 pg (25.0-34.0); Mean Corpuscular Volume 84.1 fL (80.0-100.0); Platelet Count 197 K/uL (130-400); RDW Standard Deviation 65.9 fL (36.4-46.3); Red Blood Count 4.27 M/uL (4.70-6.10); White Blood Count 3.78 K/ul (4.8-10.8)
[2024-12-22] MEDS: FERROUS SULFATE 325 MG TAB PO SCH (09:03)
[2024-12-22] MEDS: VITAMIN B COMPLEX TAB PO SCH (09:03)
[2024-12-22] MEDS: MULTIVITAMIN TAB PO SCH (09:04)
[2024-12-22 09:21] LABS: Anion Gap 6.0 (3-11); Blood Urea Nitrogen 34.0 mg/dl (6-23); Calcium 8.2 mg/dl (8.6-10.3); Carbon Dioxide 23.0 mmol/L (21-32); Chloride 110.0 mmol/L (98-107); Creatinine Clr Calc Pharmacy 73.0 ml/min; Glucose 87.0 mg/dl (70-99(Fasting)); Potassium 4.1 mmol/L (3.5-5.1); Sodium 139.0 mmol/L (136-145)
[2024-12-22] MEDS: DICLOFENAC SODIUM 75 MG TABCR PO SCH (10:01)
--- NOTE | 2024-12-22 11:40 | Electrocardiogram Report ---
Test Reason : Blood Pressure : */* mmHG Vent. Rate : 74 BPM Atrial Rate : 74 BPM P-R Int : 178 ms QRS Dur : 120 ms QT Int : 408 ms P-R-T Axes : 115 88 36 degrees QTcB Int : 452 ms Normal sinus rhythm with sinus arrhythmia Right bundle branch block Abnormal ECG When compared with ECG of 23-Jun-2024 09:23, Premature atrial complexes are no longer Present VT interval has decreased Confirmed by Ottoniel Mejia ([id number]) on 12/22/2024 11:40:28 AM Referred By: REFERRED SELF Confirmed By: Ottoniel Mejia
--- NOTE | 2024-12-22 12:00 | XRay Report ---
XR femur RT 2V routine CLINICAL HISTORY: eval hardware severe right hip pain COMPARISON: 09/11/2024 FINDINGS: There are postsurgical changes of a total right hip arthroplasty. No complicating features are visualized. Note also is made of a total right knee arthroplasty and patellar resurfacing. There are no acute fractures. No destructive lesions are visualized. IMPRESSION: 1. No acute fractures 2. Postsurgical changes of a total right hip arthroplasty and total right knee arthroplasty. 3. No hardware abnormalities are visualized. ACT 112: Negative or not required by law. Electronically signed by: Ray Olmedo M.D. 12/22/2024 11:59 AM
--- NOTE | 2024-12-22 12:08 | XRay Report ---
XR lumbar spine 2-3V CLINICAL HISTORY: Acute on chronic back and R thigh pain COMPARISON STUDY: No previous studies for comparison. FINDINGS: There are surgical clips in the right upper quadrant consistent with a prior cholecystectom y. There are postsurgical changes of a right hip arthroplasty. There is mild nonspecific gaseous prom inence of the bowel. There is a mild scoliosis. There are moderate multilevel degenerative changes wi th multilevel disc space narrowing and osteophyte formation. No acute fractures are visualized. IMPRESSION: 1. Moderate multilevel degenerative change with multilevel disc space narrowing and osteophyte format ion 2. No acute fractures identified ACT 112: Negative or not required by law. Electronically signed by: Ray Olmedo M.D. 12/22/2024 12:06 PM
--- NOTE | 2024-12-22 13:06 | Hospitalist Progress Note ---
Date of Service December 22, 2024 Assessment & Plan (1) Acute pain of right hip: (2) UTI (urinary tract infection): (3) BPH (benign prostatic hyperplasia): (4) History of gout: (5) HTN (hypertension): Plan 69yo male with history of ROSENDO 06/05/24 with post-operative infection s/p open I&D and revision of the femoral stem 09/11/24 presenting with severe pain in the right thigh ongoing for the last week. Pain is worse with weight bearing - atraumatic. No fever, chills, cough, SOB or other signs/symptoms of infection. #Acute pain of right hip - patient is s/p ROSENDO 06/05/24 complicated by post- operative infection s/p open I&D with revision of the femoral st3em 09/11/24. Patient has been on residential antibiotics via PICC line then on oral antibiotics. He reports there was a break in his oral antibiotics due to insurance not approving the medication. Patient is afebrile, HD stable. Mild elevation of inflammatory markers at present with ESR=24 and CRP=1.92. CT findings as above with post-operative seroma. -Admit to medical -Follow cultures sent from ER - urine and blood -Will treat with Vancomycin for now. Patient reports he was on a medication through the IV that "was breaking down my muscles". He is uncertain of the details - question elevation of CK due to Daptomycin? He did have a mild CK elevation of 365 on 09/28/24 -Orthopedic Surgery consultation appreciated -Tylenol, Oxycodone and Morphine PRN pain -Bowel regimen ordered -LR at 100mL/hr x 2L -Hold Lasix for now #UTI - patient UA suggestive of infection -Follow culture sent by ER -Ceftriaxone 2gm IV daily #Gout - chronic. Stable -Continue Allopurinol 300mg po qAM #BPH -Bladder scan as needed -Continue Proscar and Flomax #Hypertension - blood pressure stable -Monitor Admission and Anticipated Discharge Date Admission Date: December 22, 2024 Results & Data Results & Data Vital Signs (Past 12 Hours) Vital Signs Pulse Pulse Resp BP BP Pulse Ox O2 Del Method 12/22/24 08:13 85 21 144/86 H 95 Room Air 12/22/24 06:02 83 18 137/88 99 Nasal Cannula 12/22/24 05:30 72 14 99 Room Air 12/22/24 05:00 76 16 180/103 H 98 Room Air 12/22/24 04:00 82 16 159/90 H 94 Room Air 12/22/24 03:30 94 H 22 96 Room Air 12/22/24 03:00 86 18 139/76 93 Room Air 12/22/24 02:15 93 H 19 95 12/22/24 02:00 138/86 12/22/24 02:00 138/86 12/22/24 02:00 138/86 12/22/24 01:46 79 23 127/82 92 Room Air 12/22/24 01:30 79 16 90 12/22/24 01:20 127/82 12/22/24 01:20 127/82 12/22/24 01:18 80 21 93 O2 Flow Rate 12/22/24 08:13 12/22/24 06:02 2 12/22/24 05:30 12/22/24 05:00 12/22/24 04:00 12/22/24 03:30 12/22/24 03:00 12/22/24 02:15 12/22/24 02:00 12/22/24 02:00 12/22/24 02:00 12/22/24 01:46 12/22/24 01:30 12/22/24 01:20 12/22/24 01:20 12/22/24 01:18 PG Care Time/CCT Total # of Minutes Spent Total Time Spent with Patient: Total time spent is greater than 50% in coordination of care (as documented) at patient's floor/unit and/or counseling patient: Coding Diagnoses Acute pain of right hip M25.551 UTI (urinary tract infection) N39.0 BPH (benign prostatic hyperplasia) N40.0 History of gout Z87.39 HTN (hypertension) I10
[2024-12-22] MEDS ORDERED: VANCOMYCIN 750 MG in SODIUM CHLORIDE 0.9% 250 ML IV SCH (16:00)
--- NOTE | 2024-12-22 16:02 | Discharge Summary ---
Discharge Summary Date of Service December 22, 2024 Principal Dx & Hospital Course #1 = Principal Diagnosis (1) Acute pain of right hip: (2) UTI (urinary tract infection): (3) BPH (benign prostatic hyperplasia): (4) History of gout: (5) HTN (hypertension): Plan 69yo male with history of ROSENDO 06/05/24 with post-operative infection s/p open I&D and revision of the femoral stem 09/11/24 presenting with severe pain in the right thigh ongoing for the last week. Pain is worse with weight bearing - atraumatic. No fever, chills, cough, SOB or other signs/symptoms of infection. #Acute pain of right hip hx of ROSENDO 06/05/2024 complicated by post-op infection. s/p open I&D w/ revision of femoral stem 09/11/2024. Has been on longterm abx via PICC then more recently PO abx CBC w/o leukocytosis. Procal negative. CRP 1.20, ESR 24 --> improved from previous. Right hip CT: right hip arthroplasty w/o evidence of hardware complication. chronic seroma along dissection plane. Right femur XR: no acute fx. post surgical changes of total right hip arthroplasty & total right knee arthroplasty. Lumbar spine XR: moderate multi-level degenerative change w/ multi-level disc space narrowing & osteophyte formation. Ortho consulted --> workup for infx/fx negative. no further workup & was okay for dc from their standpoint. Discharged home w/ recommendations to use Tylenol 1000mg q8h, Flexeril 5mg q 8h scheduled & Oxycodone 5mg as needed for breakthrough pain every 6 hours. #UTI patient UA suggestive of infection w/ UC + for E. Coli s/p Rocephin --> sent home on Macrobid for 4 additional days to complete course. #Gout chronic. Stable Continue Allopurinol 300mg po qAM #BPH-Continue Proscar and Flomax #Hypertension - blood pressure stable Discharged home 12/22. Admission HPI Per Admitting Provider Dakota Colvin is a 69yo male with history of HTN, CKD presenting with one week of progressive pain in the right thigh. Patient had right anterior ROSENDO performed by Dr. Martin on 06/05/2024. The procedure went well with no complications identified. Patient was discharged from the hospital on 06/06/24 on Cefadroxil 500mg po BID x 10 days. On 06/23/24 patient was seen in the ER with complaint of pain and redness over the incision site. He was started on Augmentin 875-125mg po BID in the ER. He was seen by Orthopedics on 06/24/24 and his antibiotics were changed to Doxycycline 100mg po BID x 3 weeks - wound noted to be improving during followup visits. Patient was seen by Ortho on 09/01/24 complaining of persistent pain mostly in the hip. He had an ESR=52 and CRP=2.82. CT of the hip on 09/06/24 revealed a 9cm fluid collection within the arthroplasty operative bed and a few locules of air suggesting a seroma. Patient returned to the OR on 09/11/24 for open irrigation and debridement and revision fo the femoral stem. Intraoperative cultures at that time POSITIVE for staphylococcus epidermidis (Resistant to Oxacillin, Tetracycline, TMP-SMX). He was evaluated by Infectious Disease and was transitioned from Vancomycin to Daptomycin - PICC line was placed and patient was to continue 6 week course of antibiotics through 10/22/24 which was followed by oral antibiotics (uncertain which one, no records). Patient reports there was some difficulty with insurance approving his oral antibiotics, therefore, there was a lapse in treatment. He has recently been restarted on oral antibiotics - 8 or 9 days ago. Patient is unsure of which antibiotic. He has been following with Dr. Montiel from [place]. Patient was up at his camp last weekend and was doing some work. He did not fall or injure himself in any way. He then developed some pain in his right thigh which has been progressively worsening over the last week. He feels that the pain is in his femur and does not involve the hip joint - states that it feels different than when he had the infection. Pain is with weight bearing. He is having difficulty ambulating and over the last three days has been needing to use a walker. He denies fever, chills, chest pain, cough, SOB. No redness, swelling or drainage from the incision site. Patient presents this evening with worsening pain, inability to walk. In the ER he is afebrile, HD stable ER Course: Daptomycin NSS Discharge Exam Constitutional WD/WN, vitals as above Eyes PERRL, conjunctivae normal, anicteric sclerae Musculoskeletal right hip without tenderness or erythema. no warmth Psychiatric A+Ox3, euthymic affect Discharge Plan Discharge Items Patient Disposition: Home - Self-Care Reason For Visit: RT HIP/LEG PAIN,H/O PROSTHETIC JOINT W PRIOR INFEC Discharge Diagnosis: right hip pain Condition on Discharge: Fair Activity: Resume your previous activity Non-emergency contact: Primary Care Provider and Surgeon Call non-emergency contact if: you have any medication questions, your symptoms worsen and you have a fever Follow-up/Referrals: Mundo Martin DO [Physician] - Pita Montes MD [Primary Care Provider] - Diet: Regular Addtl Attending Provider Instructions: Mr. Colvin, You were recently hospitalized for right leg pain. Your workup was negative for infection and any fractures. Please see recommendations below regarding your discharge. Please continue on the antibiotics that Dr. Montiel has prescribed for you. Follow up with her in her clinic. You were also found to have a UTI. An antibiotic has been sent to your pharmacy. Please take Nitrofurantoin twice daily for 4 days. Your first dose will be this evening, 12/22. You may take with food to avoid GI upset. You may use Flexeril every 8 hours for muscle related spasm/pain and Tylenol 1000mg every 8 hours for pain. For breakthrough pain, please use Oxycodone 5mg every 6 hours as needed. The remainder of your medications may be resumed. Please follow up with Dr. Martin in his clinic. - You are allowed activity as tolerated. Best of luck! Astrid Chandra PA-C Pending Studies at Discharge: Yes Studies:: final results Stand-Alone Forms: My [employer], Smoking Cessation Medications and DC Order Prescriptions: New cyclobenzaprine 5 mg tablet 5 mg PO TID Qty: 30 0RF nitrofurantoin macrocrystal 100 mg capsule 100 mg PO BID Qty: 8 0RF Rx Instructions: must administer with a meal/food Continued furosemide 40 mg tablet 40 mg PO QAM allopurinol 300 mg Tablet 300 mg PO QAM omeprazole 20 mg Tablet,Delayed Release (Dr/Ec) 20 mg PO QAM fluticasone propionate [Flonase Allergy Relief] 50 mcg/actuation [place],S uspension 1 spray Intranasal DAILY PRN (Reason: Congestion) potassium gluconate 595 mg (99 mg) Tablet Extended Release 99 mg PO QAM zolpidem [Ambien] 10 mg tablet 10 mg PO HS finasteride 5 mg tablet 5 mg PO QAM multivitamin Tablet 1 tab PO QAM B-complex with vitamin C [Super B Complex-Vitamin C] Tablet 1 tab PO QAM diclofenac sodium 75 mg tablet,delayed release (DR/EC) 75 mg PO QAM docusate sodium [Stool Softener] 100 mg Capsule 100 mg PO QAM PRN (Reason: Constipation) tamsulosin 0.4 mg capsule 0.4 mg PO QAM diphenhydramine-acetaminophen [Tylenol PM Extra Strength] 25-500 mg Tablet 1 tab PO HS ferrous sulfate [FeroSul] 325 mg (65 mg iron) tablet 325 mg PO DAILY oxycodone 5 mg tablet 5 mg PO Q6 PRN (Reason: pain) Qty: 8 0RF Discontinued cyclobenzaprine 10 mg Tablet 10 mg PO TID PRN (Reason: Spasms) Discharge Orders: Discharge Order (Routine); Ordered 12/22/24 Ordered By: Astrid Chandra Admission Data Admit Date/Time: 12/22/24 00:20 Attending Provider: Kelton Young Admit Provider: Liseth Flores Primary Care Provider: Pita Montes Other Providers: Mundo Martin; Liseth Flores Other Interventions: Discharge Summary Assessment (RN) Last Done: 12/22/24 16:03 Hospital Stay Data Consultations 12/21/24 23:27 ED Decision to Admit Stat 12/22/24 00:20 Consult Orthopedic Surgery Routine Diagnostic Imagining Performed 12/21/24 21:09 CT hip RT wo con Stat Pending Results Patient Have Any Pending Studies at Discharge: Yes Discharge Instructions Given to Patient (Per Discharging Provider) Mr. Colvin, Chidi were recently hospitalized for right leg pain. Your workup was negative for infection and any fractures. Please see recommendations below regarding your discharge. Please continue on the antibiotics that Dr. Montiel has prescribed for you. Follow up with her in her clinic. You were also found to have a UTI. An antibiotic has been sent to your pharmacy. Please take Nitrofurantoin twice daily for 4 days. Your first dose will be this evening, 12/22. You may take with food to avoid GI upset. You may use Flexeril every 8 hours for muscle related spasm/pain and Tylenol 1000mg every 8 hours for pain. For breakthrough pain, please use Oxycodone 5mg every 6 hours as needed. The remainder of your medications may be resumed. Please follow up with Dr. Martin in his clinic. - You are allowed activity as tolerated. Best of luck! Astrid Chandra PA-C Supervising Physician Co-Signing Physician Notes The patient was not seen by me. The chart was reviewed. Case discussed with RONNY Colby. Agree with assessment and plan Total Time Total Time Spent Total Time Spent (In Minutes): 50 Total Time Includes: Examination of the Patient, Discharge Planning, Medication Reconciliation, Communication With Other Providers and Other Coding Level of Care Code 73643 INP/OBS DISCH >30 MIN Diagnoses Acute pain of right hip M25.551 UTI (urinary tract infection) N39.0 BPH (benign prostatic hyperplasia) N40.0 History of gout Z87.39 HTN (hypertension) I10
[2024-12-22 16:07] VITALS: BP 128/68; PULSE 83
[2024-12-22] MEDS ORDERED: ZOLPIDEM TARTRATE 5 MG TAB PO SCH (21:00)
[2024-12-23] MEDS ORDERED: VANCOMYCIN LEVEL ONE (05:00)
[2024-12-23] MEDS ORDERED: cefTRIAXone SODIUM 2,000 MG/50 ML BAG IV SCH (06:00)
== END 2024-12-22 17:00 | disposition home or self-care (01) ==
LOC: ED 18:45 → EDINP 18:45 → SUATTDRO 12-22 00:20 → EDINP 12-22 01:01